=== PATIENT | female | born 1970 | race Caucasian/White ===

== ENCOUNTER 2016-10-02 19:26 | Emergency (ER) | payer BC ==
[2016-10-02 20:29] VITALS: RESP 18
--- NOTE | 2016-10-02 21:48 | ED ---
Extremity Problem HPI - General Chief complaint: Extremity Problem,Nontraumatic Stated complaint: lumps in neck and arm swelling Time Seen by Provider: 10/02/16 20:51 Source: patient, RN notes reviewed Mode of arrival: ambulatory Limitations: no limitations - History of Present Illness Initial comments: Patient is a 46-year-old female feeling generally ill for the past week. Patient reports that she recently returned from a vacation on Monday. She started to feel ill. She denies any specific symptoms other than noticing some swelling of the lymph node right neck as well as some right arm pain. Patient reports that this became more severe and the pain radiates from her neck down her arm. Patient states that she's noticed some swelling over the right arm for one day. She states that she did have a mild rash on her ankle and forearms a few days ago. She states that she's been taking Tylenol with some relief of the pain. She denies being sedentary or having immobilization of the arm. She denies having any tick bites or abnormal exposures on her vacation. She did travel to [place] and went to the beach as well as the [place]. - Related Data Home Medications Medication Instructions Recorded Confirmed Acetaminophen Tab [Tylenol Tab] 975 mg PO Q4H PRN 10/02/16 10/02/16 Beauty Sleep Vitamin 1 tab PO HS 10/02/16 10/02/16 Multivitamins, Thera [Multivitamin 1 tab PO DAILY 10/02/16 10/02/16 (formulary)] Thyroid,Pork [[place] Thyroid] 120 mg PO DAILY 10/02/16 10/02/16 Previous Rx's Medication Instructions Recorded Amoxic-Pot Clav 875-125Mg 1 tab PO Q12HR #20 tablet 10/02/16 [Augmentin 875-125] Allergies Allergy/AdvReac Type Severity Reaction Status Date / Time morphine Allergy BREATING Verified 10/02/16 21:07 PROBLEMS Review of Systems ROS Statement: Those systems with pertinent positive or pertinent negative responses have been documented in the HPI. ROS Other: All systems not noted in ROS Statement are negative. Past Medical History Past Medical History: No Reported History, Thyroid Disorder History of Any Multi-Drug Resistant Organisms: None Reported Past Surgical History: Appendectomy, Section, Tubal Ligation Past Psychological History: No Psychological Hx Reported Smoking Status: Never smoker Past Alcohol Use History: Rare Past Drug Use History: None Reported General Exam Limitations: no limitations General appearance: alert, in no apparent distress Head exam: Present: atraumatic, normocephalic, normal inspection Eye exam: Present: normal appearance, PERRL, EOMI. Absent: scleral icterus, conjunctival injection, periorbital swelling ENT exam: Present: normal exam, mucous membranes moist Neck exam: Present: normal inspection, lymphadenopathy (prominent right anterior cervical lymphnode. ). Absent: tenderness, meningismus Respiratory exam: Present: normal lung sounds bilaterally. Absent: respiratory distress, wheezes, rales, rhonchi, stridor Cardiovascular Exam: Present: regular rate, normal rhythm, normal heart sounds. Absent: systolic murmur, diastolic murmur, rubs, gallop, clicks GI/Abdominal exam: Present: soft, normal bowel sounds. Absent: distended, tenderness, guarding, rebound, rigid Extremities exam: Present: normal inspection, full ROM, normal capillary refill , other (mild swelling in rigth arm. ). Absent: tenderness, pedal edema, joint swelling, calf tenderness Back exam: Present: normal inspection Neurological exam: Present: alert, oriented X3, CN II-XII intact Psychiatric exam: Present: normal affect, normal mood Skin exam: Present: warm, dry, intact, normal color. Absent: rash Course Vital Signs 10/02/16 10/02/16 20:24 23:59 Temperature 99.2 F 98.5 F Pulse Rate 99 70 Respiratory 18 18 Rate Blood Pressure 171/92 137/63 O2 Sat by Pulse 96 97 Oximetry Medical Decision Making - Medical Decision Making Patient is a 46-year-old female feeling generally ill for the past week. Patient reports that she recently returned from a vacation on Monday. She started to feel ill. She denies any specific symptoms other than noticing some swelling of the lymph node right neck as well as some right arm pain. Patient reports that this became more severe and the pain radiates from her neck down her arm. Patient states that she's noticed some swelling over the right arm for one day. She states that she did have a mild rash on her ankle and forearms a few days ago. Patient lab work reviewed and was negative, patient given doppler US. No blood clots, there is evidence of diffuse axilla lymphadenopathy. Patient results were discussed with her. Discussed that we can place patient on antibioitic to see if swelling of lymph nodes disapates, but patient needs to follow up with PCP. Discussed importance of mammograms as this can be a sign of breast cancer. PAtient agrees with treatment plan and will comply. - Lab Data Result diagrams: 10/02/16 22:03 10/02/16 22:03 Lab Results 10/02/16 10/02/16 Range/Units 22:03 22:03 WBC 3.7 L (3.8-10.6) k/uL RBC 4.40 (3.80-5.40) m/uL Hgb 12.2 (11.4-16.0) gm/dL Hct 37.0 (34.0-46.0) % MCV 84.2 (80.0-100.0) fL MCH 27.8 (25.0-35.0) pg MCHC 33.0 (31.0-37.0) g/dL RDW 13.2 (11.5-15.5) % Plt Count 237 (150-450) k/uL Neutrophils % 45 % Neutrophils % (Manual) 37.0 % Lymphocytes % 38 % Lymphocytes % (Manual) 54.0 % Monocytes % 5 % Monocytes % (Manual) 1.0 % Eosinophils % 6 % Eosinophils % (Manual) 8.0 % Basophils % 1 % Neutrophils # 1.7 (1.3-7.7) k/uL Neutrophils # (Manual) 1.4 (1.3-7.7) k/uL Lymphocytes # 1.5 (1.0-4.8) k/uL Lymphocytes # (Manual) 2.0 (1.0-4.8) k/uL Monocytes # 0.2 (0-1.0) k/uL Monocytes # (Manual) 0.0 (0-1.0) k/uL Eosinophils # 0.2 (0-0.7) k/uL Eosinophils # (Manual) 0.3 (0-0.7) k/uL Basophils # 0.0 (0-0.2) k/uL Nucleated RBCs 0 (0-0) /100 WBC Manual Slide Review Performed Sodium 142 (137-145) mmol/L Potassium 3.8 (3.5-5.1) mmol/L Chloride 103 (98-107) mmol/L Carbon Dioxide 26 (22-30) mmol/L Anion Gap 13 mmol/L BUN 11 (7-17) mg/dL Creatinine 0.90 (0.52-1.04) mg/dL Est GFR (MDRD) Af Amer >60 (>60 ml/min/1.73 sqM) Est GFR (MDRD) Non-Af >60 (>60 ml/min/1.73 sqM) Glucose 123 H (74-99) mg/dL Calcium 9.0 (8.4-10.2) mg/dL Total Bilirubin 0.2 (0.2-1.3) mg/dL AST 42 H (14-36) U/L ALT 44 (9-52) U/L Alkaline Phosphatase 62 (38-126) U/L Total Protein 6.9 (6.3-8.2) g/dL Albumin 4.0 (3.5-5.0) g/dL - Radiology Data Radiology results: report reviewed Ultrasound of right upper x-ray shows no evidence of DVT. Small neck Her lymph nodes are noted as above. Remaining palpable lymph node measures 8 x 7 x 5 mm. Right axilla lymph nodes noted largest measures 2 x 1.3 x 2.87 m. Disposition Clinical Impression: Anterior cervical adenopathy Disposition: HOME SELF-CARE Condition: Stable Instructions: Lymphadenopathy (ED) Additional Instructions: Patient advised to follow-up with primary care provider in regards to lymphadenopathy. Return the emergency department if any alarming signs or symptoms occur. Prescriptions: Amoxic-Pot Clav 875-125Mg [Augmentin 875-125] 1 tab PO Q12HR #20 tablet Referrals: Bina Mancilla DO [Primary Care Provider] - 1-2 days Time of Disposition: 23:44
[2016-10-02 22:21] LABS: ALT 44 U/L (9-52); AST 42 U/L (14-36); Alkaline Phosphatase 62 U/L (38-126); Anion Gap 13 mmol/L; Blood Urea Nitrogen 11 mg/dL (7-17); Carbon Dioxide 26 mmol/L (22-30); Chloride 103 mmol/L (98-107); Glucose 123 mg/dL (74-99); Non-African American GFR(MDRD) >60 (>60 ml/min/1.73 sqM); Potassium 3.8 mmol/L (3.5-5.1); Sodium 142 mmol/L (137-145); Total Bilirubin 0.2 mg/dL (0.2-1.3); Total Protein 6.9 g/dL (6.3-8.2)
--- NOTE | 2016-10-02 22:26 | US ---
EXAM: US Duplex Right Upper Extremity Veins. CLINICAL HISTORY: Reason: Pain TECHNIQUE: Real-time ultrasound scan of the veins of the right upper extremity with color Doppler flow, spectral waveform analysis and compression. COMPARISON: No relevant prior studies available. FINDINGS: Deep veins: Unremarkable. No DVT in the internal jugular, subclavian, axillary, or brachial veins. Superficial veins: Unremarkable. No thrombus in the visualized superficial veins. Soft tissues: No acute findings. Lymph nodes: Right neck palpable lymph node measures 8 x 7 x 5 mm. Right axillary lymph nodes noted, largest measures 2.0 x 1.3 x 2.8 cm. IMPRESSION: 1. No evidence of deep venous thrombosis. 2. Small neck and axillary lymph nodes nodes, as above.
[2016-10-02 22:30] LABS: Add Differential Manual Differential
[2016-10-02 22:34] LABS: Manual Review Performed; Nucleated Red Blood Cells 0 /100 WBC (0-0); Total Cells Counted 100
[2016-10-02 23:14] LABS: Basophils % (A) 1 %; CH 27.8; CHCM 33.1; Eosinophils # (A) 0.2 k/uL (0-0.7); Eosinophils % (A) 6 %; HDW 2.65; HGB 12.2 gm/dL (11.4-16.0); Luc # (Auto) 0.22; Luc % (Auto) 6; Lymphocytes # (A) 1.5 k/uL (1.0-4.8); Lymphocytes % (A) 38 %; MCH 27.8 pg (25.0-35.0); MCV 84.2 fL (80.0-100.0); Mean Platelet Volume 7.4; Monocytes # (A) 0.2 k/uL (0-1.0); Monocytes % (A) 5 %; Neutrophils # (A) 1.7 k/uL (1.3-7.7); Neutrophils % (A) 45 %; RDW 13.2 % (11.5-15.5); WBC 3.7 k/uL (3.8-10.6); WBC (Perox) 4.16
[2016-10-02 23:59] VITALS: BP 137/63; PULSE 70; TEMP 98.5
== END 2016-10-03 | disposition home or self-care (01) ==
LOC: EC 19:26
DX: R59.0 Localized enlarged lymph nodes (principal); M79.601 Pain in right arm; E07.9 Disorder of thyroid, unspecified; Z88.5 Allergy status to narcotic agent; Z79.899 Other long term (current) drug therapy
CPT/HCPCS: 36415; 80053; 85025; 99284

== ENCOUNTER → 2016-10-11 | Outpatient (CLI) | payer BC ==
--- NOTE | 2016-10-13 08:20 | MM ---
Reason for exam: clinical finding. History: Family history of breast cancer in 2 maternal aunts and breast cancer in 2 paternal cousins. Indicated problem(s): lump or thickening and pain in the right breast. Physical Findings: Nurse did not find any significant physical abnormalities on exam. MG 3D Diag Mammo W/Cad MARQUISE Bilateral CC and MLO view(s) were taken. The breast tissue is heterogeneously dense. This may lower the sensitivity of mammography. No suspicious calcifications are seen. Mildly prominent axillary lymph nodes. These results were verbally communicated with the patient and result sheet given to the patient on 10/11/16. ASSESSMENT: Benign, BI-RAD 2 RECOMMENDATION: Routine screening mammogram of both breasts in 1 year. Manage patient on a clinical basis.
== END | disposition home or self-care (01) ==
LOC: RADMAMWWP 13:25
PROVIDERS: ATTEND Family Medicine
DX: N64.4 Mastodynia (principal); N60.09 Solitary cyst of unspecified breast; N64.89 Other specified disorders of breast
CPT/HCPCS: G0204; G0279

== ENCOUNTER 2017-02-08 22:21 | Emergency (ER) | payer BC ==
[2017-02-08 22:33] VITALS: BP 155/70; PULSE 88; RESP 18; TEMP 97.7
[2017-02-08] MEDS ORDERED: DIPH,PERTUS(ACELL)TETVAC-LF 0.5 ML VIAL IM ONE (22:36)
[2017-02-08] MEDS ORDERED: CEPHALEXIN 500 MG CAP PO STA (22:58)
--- NOTE | 2017-02-08 23:00 | ED ---
Wound/Laceration HPI - General Chief Complaint: Wound/Laceration Stated Complaint: laceration left foot (stepped on tea blender blade) Time Seen by Provider: 02/08/17 22:34 Source: patient, family, RN notes reviewed Mode of arrival: wheelchair Limitations: no limitations - History of Present Illness Initial Comments: 46-year-old female presents emergency Department chief complaint laceration to her left foot. Patient states she was outside and states that and also into the trash in which there was an old bleed from a tea blender in there. She states is on the ground she stepped on. Patient states that she is unsure last tetanus was. Patient states bleeding is controlled this time denies any paresthesias no weakness to her foot. - Related Data Home Medications Medication Instructions Recorded Confirmed Acetaminophen Tab [Tylenol Tab] 975 mg PO Q4H PRN 10/02/16 10/02/16 Beauty Sleep Vitamin 1 tab PO HS 10/02/16 10/02/16 Multivitamins, Thera [Multivitamin 1 tab PO DAILY 10/02/16 10/02/16 (formulary)] Thyroid,Pork [[place] Thyroid] 120 mg PO DAILY 10/02/16 10/02/16 Previous Rx's Medication Instructions Recorded Amoxic-Pot Clav 875-125Mg 1 tab PO Q12HR #20 tablet 10/02/16 [Augmentin 875-125] Cephalexin [Keflex] 500 mg PO Q6HR #28 cap 02/08/17 Allergies Allergy/AdvReac Type Severity Reaction Status Date / Time morphine Allergy BREATING Verified 10/02/16 21:07 PROBLEMS Review of Systems ROS Statement: Those systems with pertinent positive or pertinent negative responses have been documented in the HPI. ROS Other: All systems not noted in ROS Statement are negative. Past Medical History Past Medical History: No Reported History, Thyroid Disorder History of Any Multi-Drug Resistant Organisms: None Reported Past Surgical History: Appendectomy, Section, Tubal Ligation Past Psychological History: No Psychological Hx Reported Smoking Status: Never smoker Past Alcohol Use History: Rare Past Drug Use History: None Reported General Exam Limitations: no limitations General appearance: alert, in no apparent distress Respiratory exam: Present: normal lung sounds bilaterally. Absent: respiratory distress, wheezes, rales, rhonchi, stridor Cardiovascular Exam: Present: regular rate, normal rhythm, normal heart sounds. Absent: systolic murmur, diastolic murmur, rubs, gallop, clicks Extremities exam: Present: other (Left foot there is a 5 cm laceration on the plantar surface there is no tendon involvement patient has full range of motion) Neurological exam: Present: alert, reflexes normal. Absent: motor sensory deficit Course Vital Signs 02/08/17 22:29 Temperature 97.7 F Pulse Rate 88 Respiratory 18 Rate Blood Pressure 155/70 O2 Sat by Pulse 100 Oximetry Procedures - Laceration Laceration #1 Consent Obtained: verbal consent Indication: laceration Site: foot (Left) Size (cm): 5 Description: linear Depth: simple, single layer Anesthetic Used: lidocaine 1%, without epi Anesthesia Technique: local infiltration Amount (mls): 6 Pre-repair: wound explored, irrigated extensively, deep structures intact Type of Sutures: nylon Size of Sutures: 4-0 Number of Sutures: 7 Technique: simple, interrupted Patient Tolerated Procedure: well, no complications Medical Decision Making - Medical Decision Making 46-year-old female presented for for laceration. This was closed using sutures. It was thoroughly cleaned. Patient we certainly antibiotic as it was a dirty wound from the bleeding and it's on her foot. Patient tetanus is updated return parameters were discussed. Disposition Clinical Impression: Laceration of left foot Disposition: HOME SELF-CARE Condition: Stable Instructions: Care For Your Stitches (ED), Laceration (ED) Additional Instructions: Have sutures removed in 10 days.Please return to the Emergency Department if symptoms worsen or any other concerns. Prescriptions: Cephalexin [Keflex] 500 mg PO Q6HR #28 cap Referrals: Bina Mancilla DO [Primary Care Provider] - 1-2 days Time of Disposition: 22:59
== END 2017-02-08 23:10 | disposition home or self-care (01) ==
LOC: EC 22:21
DX: S91.312A Laceration without foreign body, left foot, initial encounter (principal); E07.9 Disorder of thyroid, unspecified; Z79.899 Other long term (current) drug therapy; Z88.5 Allergy status to narcotic agent; Z23 Encounter for immunization; W26.8XXA Contact with other sharp object(s), not elsewhere classified, initial encounter
CPT/HCPCS: 12002; 90471; 90715; 99282

== ENCOUNTER 2017-11-06 11:34 | Inpatient (IN) | payer BC ==
[2017-11-06] MEDS ORDERED: SODIUM CHLORIDE 0.9% 1,000 ML IV STA (11:58)
[2017-11-06 12:24] LABS: Basophils # (A) 0.1 k/uL (0-0.2); Basophils % (A) 1 %; Eosinophils # (A) 0.2 k/uL (0-0.7); Eosinophils % (A) 3 %; HCT 39.6 % (34.0-46.0); HGB 13.1 gm/dL (11.4-16.0); Lymphocytes # (A) 1.6 k/uL (1.0-4.8); Lymphocytes % (A) 25 %; MCH 27.5 pg (25.0-35.0); MCV 83.3 fL (80.0-100.0); Mean Platelet Volume 6.8; Monocytes # (A) 0.4 k/uL (0-1.0); Monocytes % (A) 6 %; Neutrophils # (A) 4.1 k/uL (1.3-7.7); Neutrophils % (A) 63 %; Platelet Count 349 k/uL (150-450); RBC 4.75 m/uL (3.80-5.40); RDW 13.3 % (11.5-15.5); WBC 6.5 k/uL (3.8-10.6)
--- NOTE | 2017-11-06 12:32 | CT ---
EXAMINATION TYPE: CT brain wo con DATE OF EXAM: 11/06/2017 COMPARISON: 06/29/2010 HISTORY: Possible seizure today, confusion. CT DLP: 776.[address] of the brain was performed. The ventricles, basal cisterns and sulci overlying the cerebral convexities demonstrate a normal appe arance. There is no evidence for intracranial hemorrhage or sulcal effacement. No mass effects are seen. Osseous calvarium is intact. If symptoms persist consider MRI as clinically warranted. IMPRESSION: 1. No acute intracranial process is seen at this time.
[2017-11-06 12:41] LABS: ALT 30 U/L (9-52); AST 41 U/L (14-36); Acetaminophen <10.0 ug/mL; Albumin 4.4 g/dL (3.5-5.0); Alcohol <10 mg/dL; Alkaline Phosphatase 75 U/L (38-126); Anion Gap 14 mmol/L; Blood Urea Nitrogen 9 mg/dL (7-17); Calcium 9.6 mg/dL (8.4-10.2); Carbon Dioxide 24 mmol/L (22-30); Chloride 104 mmol/L (98-107); Glucose 119 mg/dL (74-99); Potassium 4.6 mmol/L (3.5-5.1); Salicylate <1.0 mg/dL; Sodium 142 mmol/L (137-145); Total Bilirubin 0.5 mg/dL (0.2-1.3); Total Protein 7.3 g/dL (6.3-8.2)
--- NOTE | 2017-11-06 12:44 | ED ---
General Adult HPI - General Chief complaint: Seizure Stated complaint: poss seizure, confusion Time Seen by Provider: 11/06/17 11:41 Source: family, RN notes reviewed, old records reviewed Mode of arrival: wheelchair Limitations: no limitations - History of Present Illness Initial comments: 47-year-old female presents with suspected seizure. Patient is accompanied by family member who was not able to witnesses activity. According to patient's daughter who is not available at the time my evaluation, the patient had 2 generalized tonic-clonic seizures this morning while the patient was in bed. There is no injury. Patient is alert and oriented at the time my evaluation. She has a remote history of seizures as a teenager. She is not currently on any prophylactic medication. She is able to answer questions but slow to respond. She complains of a mild right-sided headache. Denies any drug ingestion. Denies any alcohol abuse. She has no additional pain complaints aside her headache. No weakness or numbness. No vision changes. - Related Data Home Medications Medication Instructions Recorded Confirmed Ergocalciferol (Vitamin D2) 50,000 unit PO DIRECTED 11/06/17 11/06/17 [Vitamin D2] Multivitamins, Thera [Multivitamin 1 tab PO DAILY 11/06/17 11/06/17 (formulary)] PARoxetine [Paxil] 20 mg PO DAILY 11/06/17 11/06/17 Thyroid,Pork [[place] Thyroid] 120 mg PO DAILY 11/06/17 11/06/17 Allergies Allergy/AdvReac Type Severity Reaction Status Date / Time morphine Allergy Dyspnea Verified 11/06/17 12:03 Review of Systems ROS Statement: Those systems with pertinent positive or pertinent negative responses have been documented in the HPI. ROS Other: All systems not noted in ROS Statement are negative. Past Medical History Past Medical History: Seizure Disorder, Thyroid Disorder History of Any Multi-Drug Resistant Organisms: None Reported Past Surgical History: Appendectomy, Section, Tubal Ligation Past Psychological History: No Psychological Hx Reported Smoking Status: Never smoker Past Alcohol Use History: Rare Past Drug Use History: None Reported General Exam Limitations: no limitations General appearance: alert, in no apparent distress Head exam: Present: atraumatic, normocephalic Eye exam: Present: normal appearance, PERRL, EOMI Neck exam: Present: normal inspection. Absent: tenderness, meningismus Respiratory exam: Present: normal lung sounds bilaterally, respiratory distress Cardiovascular Exam: Present: regular rate, normal rhythm GI/Abdominal exam: Present: soft. Absent: distended, tenderness Extremities exam: Present: normal inspection, normal capillary refill. Absent: pedal edema Neurological exam: Present: alert, oriented X3, CN II-XII intact. Absent: motor sensory deficit Psychiatric exam: Present: flat affect Skin exam: Present: warm, dry, intact. Absent: cyanosis, diaphoretic Course Vital Signs 11/06/17 11/06/17 11/06/17 11:36 12:35 12:54 Temperature 98.6 F Pulse Rate 92 85 84 Respiratory 18 16 16 Rate Blood Pressure 185/82 155/82 158/67 O2 Sat by Pulse 97 95 97 Oximetry 11/06/17 13:31 Temperature Pulse Rate 86 Respiratory 16 Rate Blood Pressure 134/59 O2 Sat by Pulse 98 Oximetry EKG Findings - EKG Comments: EKG Findings:: EKG: Normal sinus rhythm, ventricular rate 84, MT interval 154, QRS duration 86, QTC 467 Medical Decision Making - Medical Decision Making 47-year-old female presenting with concern for seizure activity. Patient is initially postictal she is able to respond blood very slow. Neurologic examination is nonfocal. Head CT is obtained is negative for intracranial hemorrhage or mass effect. CBC CMP are unremarkable. Patient's mental status does improve wall she is an emergency prompt. She is alert and oriented with a nonfocal exam on reevaluation. Although she has a remote history of seizures, she is not on any medication and has not had a seizure in greater than 30 years. She will be admitted for further evaluation of possible seizure activity. Neurology placed on consult. Case discussed with Dr. Peralta who will accept admission - Lab Data Result diagrams: 11/06/17 11:56 11/06/17 11:56 Lab Results 11/06/17 11/06/17 11/06/17 Range/Units 11:56 11:56 12:58 WBC 6.5 (3.8-10.6) k/uL RBC 4.75 (3.80-5.40) m/uL Hgb 13.1 (11.4-16.0) gm/dL Hct 39.6 (34.0-46.0) % MCV 83.3 (80.0-100.0) fL MCH 27.5 (25.0-35.0) pg MCHC 33.0 (31.0-37.0) g/dL RDW 13.3 (11.5-15.5) % Plt Count 349 (150-450) k/uL Neutrophils % 63 % Lymphocytes % 25 % Monocytes % 6 % Eosinophils % 3 % Basophils % 1 % Neutrophils # 4.1 (1.3-7.7) k/uL Lymphocytes # 1.6 (1.0-4.8) k/uL Monocytes # 0.4 (0-1.0) k/uL Eosinophils # 0.2 (0-0.7) k/uL Basophils # 0.1 (0-0.2) k/uL Sodium 142 (137-145) mmol/L Potassium 4.6 (3.5-5.1) mmol/L Chloride 104 (98-107) mmol/L Carbon Dioxide 24 (22-30) mmol/L Anion Gap 14 mmol/L BUN 9 (7-17) mg/dL Creatinine 0.60 (0.52-1.04) mg/dL Est GFR (CKD-EPI)AfAm >90 (>60 ml/min/1.73 sqM) Est GFR (CKD-EPI)NonAf >90 (>60 ml/min/1.73 sqM) Glucose 119 H (74-99) mg/dL Calcium 9.6 (8.4-10.2) mg/dL Total Bilirubin 0.5 (0.2-1.3) mg/dL AST 41 H (14-36) U/L ALT 30 (9-52) U/L Alkaline Phosphatase 75 (38-126) U/L Total Protein 7.3 (6.3-8.2) g/dL Albumin 4.4 (3.5-5.0) g/dL Urine Color Yellow Urine Appearance Turbid H (Clear) Urine pH 8.0 (5.0-8.0) Ur Specific [place] 1.013 (1.001-1.035) Urine Protein 1+ H (Negative) Urine Glucose (UA) Negative (Negative) Urine Ketones Negative (Negative) Urine Blood Small H (Negative) Urine Nitrite Negative (Negative) Urine Bilirubin Negative (Negative) Urine Urobilinogen <2.0 (<2.0) mg/dL Ur Leukocyte Esterase Small H (Negative) Urine RBC 3 (0-5) /hpf Urine WBC 10 H (0-5) /hpf Ur Squamous Epith Cells 122 H (0-4) /hpf Urine Bacteria Moderate H (None) /hpf Urine Mucus Few H (None) /hpf Salicylates <1.0 mg/dL Urine Opiates Screen Not Detected (NotDetected) Ur Oxycodone Screen Not Detected (NotDetected) Urine Methadone Screen Not Detected (NotDetected) Ur Propoxyphene Screen Not Detected (NotDetected) Acetaminophen <10.0 ug/mL Ur Barbiturates Screen Not Detected (NotDetected) U Tricyclic Antidepress Not Detected (NotDetected) Ur Phencyclidine Scrn Not Detected (NotDetected) Ur Amphetamines Screen Not Detected (NotDetected) U Methamphetamines Scrn Not Detected (NotDetected) U Benzodiazepines Scrn Not Detected (NotDetected) Urine Cocaine Screen Not Detected (NotDetected) U Marijuana (THC) Screen Not Detected (NotDetected) Serum Alcohol <10 mg/dL Disposition Clinical Impression: New onset seizure Disposition: ADMITTED IP TO THIS [facility] Condition: Stable Is patient prescribed a controlled substance at d/c from ED?: No Referrals: Bina Mancilla DO [Primary Care Provider] - 1-2 days Decision to Admit Reason: Admit from EC Decision Date: 11/06/17 Decision Time: 14:06
[2017-11-06 13:06] LABS: Appearance,Urine Turbid (Clear); Bacteria,Urine Moderate /hpf; Bilirubin,Urine Negative (Negative); Blood,Urine Small (Negative); Color,Urine Yellow; Glucose,Urine (UA) Negative (Negative); Ketones,Urine Negative (Negative); Leukocyte Esterase,Urine Small (Negative); Mucus,Urine Few /hpf; Nitrite,Urine Negative (Negative); Protein,Urine 1+ (Negative); RBC,Urine 3 /hpf (0-5); Specific Gravity,Urine 1.013 (1.001-1.035); Squamous Epithelial Cell,Urine 122 /hpf (0-4); Urobilinogen,Urine <2.0 mg/dL (<2.0); WBC,Urine 10 /hpf (0-5)
[2017-11-06] MEDS ORDERED: levETIRAcetam IV 1,000 MG in SALINE 1 100ML.BAG IVPB STA (13:06)
[2017-11-06 13:10] LABS: Amphetamine Screen,Urine Not Detected (NotDetected); Barbiturate Screen,Urine Not Detected (NotDetected); Benzodiazepines Screen,Urine Not Detected (NotDetected); Cocaine Screen,Urine Not Detected (NotDetected); Methadone Screen, Urine Not Detected (NotDetected); Opiate Screen,Urine Not Detected (NotDetected); Oxycodone Screen, Urine Not Detected (NotDetected); Phencyclidine Screen,Urine Not Detected (NotDetected); Tricyclic Antidepressant,Urine Not Detected (NotDetected); Urn Cannabinoid Scrn Not Detected (NotDetected)
[2017-11-06] MEDS ORDERED: NALOXONE 0.4 MG/ML 1 ML VIAL IV PRN (14:01)
[2017-11-06] MEDS ORDERED: LORazepam 2 MG/ML INJ IV PRN (15:14)
--- NOTE | 2017-11-06 15:26 | P.HPIM ---
History of Present Illness H&P Date: 11/06/17 Chief Complaint: Possible seizure This is a 47-year-old female, patient of [facility]. She has a known past medical history of a seizure disorder as a teenager which was about 30 years ago. Patient reports she had been on seizure medications for a little while but has been now off them for many years. Also, history of depression and hypothyroidism. Patient reports that she may have had 2 seizure-like episodes. She was sleeping and woke up to her hands shaking and her head shaking. She was able to go back asleep and then woke up again with similar symptoms. She was able to contact family members and they came to get her and brought her into the emergency room. Per ER report patient was responding slowly to questions and was in what appeared to be a postictal state. Patient even reports that she was having difficulty finding her words to answer questions. She also had some tingling-like sensation on the right side of her face and a headache on the right side of her head. She reports having loss of bladder control and biting her tongue. Patient was given IV Keppra in the emergency room. Neurology has been consulted. Computed tomography scan of the brain shows no acute changes. Drug screen was negative. Patient denies any new medications new antibiotics. She has been having some urinary frequency initial urinalysis is likely contaminated. We'll repeat urinalysis with culture. Patient denies any numbness or weakness on one side of the body. She denies any chest pain or shortness of breath. Denies any nausea or vomiting. Denies any burning with urination. Denies any bowel movement changes. Patient' s brother has a history of epilepsy. Review of Systems Head normocephalic Neck supple Lungs clear to auscultation bilaterally no wheezing or crackles Heart regular rate and rhythm S1-S2, no rub or gallop Abdomen is soft nontender nondistended positive bowel sounds no hepatosplenomegaly Extremities no edema Neuro alert and orientated to 3 Past Medical History Past Medical History: Seizure Disorder, Thyroid Disorder History of Any Multi-Drug Resistant Organisms: None Reported Past Surgical History: Appendectomy, Section, Tubal Ligation Past Psychological History: No Psychological Hx Reported Smoking Status: Never smoker Past Alcohol Use History: Rare Past Drug Use History: None Reported Medications and Allergies Home Medications Medication Instructions Recorded Confirmed Type Ergocalciferol (Vitamin D2) 50,000 unit PO DIRECTED 11/06/17 11/06/17 History [Vitamin D2] Multivitamins, Thera [Multivitamin 1 tab PO DAILY 11/06/17 11/06/17 History (formulary)] PARoxetine [Paxil] 20 mg PO DAILY 11/06/17 11/06/17 History Thyroid,Pork [[place] Thyroid] 120 mg PO DAILY 11/06/17 11/06/17 History Allergies Allergy/AdvReac Type Severity Reaction Status Date / Time morphine Allergy Dyspnea Verified 11/06/17 12:03 Physical Exam Vitals: Vital Signs Temp Pulse Resp BP Pulse Ox 11/06/17 13:31 86 16 134/59 98 11/06/17 12:54 84 16 158/67 97 11/06/17 12:35 85 16 155/82 95 11/06/17 11:36 98.6 F 92 18 185/82 97 Intake and Output 11/06/17 11/06/17 11/06/17 06:59 14:59 22:59 Other: Weight 90.718 kg Results CBC & Chem 7: 11/06/17 11:56 11/06/17 11:56 Labs: Abnormal Lab Results - Last 24 Hours (Table) 11/06/17 11/06/17 Range/Units 11:56 12:58 Glucose 119 H (74-99) mg/dL AST 41 H (14-36) U/L Urine Appearance Turbid H (Clear) Urine Protein 1+ H (Negative) Urine Blood Small H (Negative) Ur Leukocyte Esterase Small H (Negative) Urine WBC 10 H (0-5) /hpf Ur Squamous Epith Cells 122 H (0-4) /hpf Urine Bacteria Moderate H (None) /hpf Urine Mucus Few H (None) /hpf Assessment and Plan Assessment: 1. Possible seizure disorder: Patient does have a remote history of seizure when she was a teenager. She's been off of medications for several years. Patient was given IV Keppra in the emergency room. Neurology consulted. Also will add IV Ativan for any breakthrough seizures. Computed tomography scan the brain negative. Check EEG 2. Hypothyroidism resume thyroid medication 3. Vitamin D deficiency: Resume vitamin D 4. Depression continue Paxil 5. Urinary frequency: Repeat urinalysis with culture and sensitivity. Initial urinalysis likely contaminant. 122 squamous epithelial cells present on urinalysis 6. Mildly elevated AST no abdominal pain. Will repeat AST level in a.m. GI and DVT prophylaxis Pepcid and Lovenox Time with Patient: Greater than 30 (Greater than 60% of the total time spent in counseling and coordination of care.I performed an examination of the patient and discussed their management with the physician Heel Gummer. I have reviewed the Physician Heel Gummer's notes and agree with the documented findings and plan of care)
[2017-11-06] MEDS ORDERED: ONDANSETRON 4 MG/2 ML VIAL IVP PRN (16:46)
[2017-11-06] MEDS ORDERED: HYDROcodone/APAP 5-325MG 1 EACH TAB PO PRN (16:46)
[2017-11-06] MEDS: ACETAMINOPHEN TAB 325 MG TAB PO PRN (18:38)
[2017-11-06 19:15] LABS: Appearance,Urine Cloudy (Clear); Bacteria,Urine Many /hpf; Bilirubin,Urine Negative (Negative); Blood,Urine Negative (Negative); Color,Urine Yellow; Glucose,Urine (UA) Negative (Negative); Ketones,Urine 2+ (Negative); Leukocyte Esterase,Urine Negative (Negative); Mucus,Urine Rare /hpf; Nitrite,Urine Negative (Negative); PH, Urine 7.5 (5.0-8.0); Protein,Urine Negative (Negative); Specific Gravity,Urine 1.013 (1.001-1.035); Squamous Epithelial Cell,Urine 1 /hpf (0-4); Urobilinogen,Urine <2.0 mg/dL (<2.0); WBC,Urine 2 /hpf (0-5)
[2017-11-07] MEDS: THYROID, PORK 30 MG TAB PO SCH (05:45)
[2017-11-07 08:04] LABS: Basophils % (A) 0 %; Eosinophils # (A) 0.2 k/uL (0-0.7); Eosinophils % (A) 3 %; HCT 36.2 % (34.0-46.0); Lymphocytes % (A) 34 %; MCH 27.7 pg (25.0-35.0); MCV 83.8 fL (80.0-100.0); Mean Platelet Volume 6.6; Monocytes # (A) 0.4 k/uL (0-1.0); Monocytes % (A) 7 %; Neutrophils # (A) 3.2 k/uL (1.3-7.7); Neutrophils % (A) 54 %; Platelet Count 312 k/uL (150-450); RBC 4.33 m/uL (3.80-5.40); RDW 13.4 % (11.5-15.5)
[2017-11-07] MEDS: FAMOTIDINE 20 MG TAB PO SCH (08:07)
[2017-11-07] MEDS: ENOXAPARIN 40 MG/0.4 ML SYRINGE SQ SCH (08:07)
[2017-11-07] MEDS: PARoxetine 20 MG TAB PO SCH (08:07)
[2017-11-07 08:23] LABS: ALT 30 U/L (9-52); AST 32 U/L (14-36); Albumin 3.9 g/dL (3.5-5.0); Alkaline Phosphatase 62 U/L (38-126); Anion Gap 11 mmol/L; Blood Urea Nitrogen 7 mg/dL (7-17); Calcium 9.3 mg/dL (8.4-10.2); Carbon Dioxide 28 mmol/L (22-30); Chloride 104 mmol/L (98-107); Glucose 107 mg/dL (74-99); Potassium 4.2 mmol/L (3.5-5.1); Sodium 143 mmol/L (137-145); Total Bilirubin 0.3 mg/dL (0.2-1.3); Total Protein 6.4 g/dL (6.3-8.2)
[2017-11-07] MEDS ORDERED: levETIRAcetam 500 MG TAB PO SCH (09:00)
--- NOTE | 2017-11-07 09:13 | P.CNNES ---
History of Present Illness Consult date: 11/07/17 Reason for Consult: [place] with new onset sezire disorder. History of Present Illness: This patient is a 47-year-old right-handed white female who was admitted to the hospital yesterday after having new onset of seizure activity. Patient has a history of having had seizures as a teenager about 30 years ago. She was able to wean off of medications over the years. Apparently on the day of admission she had 2 seizure-like events at home. Apparently she was sleeping and had awakened and was noticing shaking of her hands and her head. She was unable to go back to sleep and woke up again with a similar episode. The patient states that she did have urinary incontinence and had bitten the side of her mouth and cheek area. Family noticed the change and she was just not acting properly and she was brought into the emergency room for further evaluation. In the ER she was seen by Dr. Heart. She appeared to be postictal. She was very confused and had difficulty getting her words properly. She was sent for a computed tomography scan of the brain which came back negative for any acute changes. She was given a dose of IV Keppra in the emergency room of 1 g. She was subsequent admitted to Hospital. She underwent a drug screen in the ER which came back negative. She is scheduled to undergo EEG testing later today and has been admitted for further evaluation of new onset seizure activity. We have started the patient on Keppra 500 mg by mouth twice a day. She states she is feeling better today and does have slight right-sided headache. We have recommended the patient undergo MRI of the brain with and without gadolinium for further evaluation. She was explained [place] driving law which states she cannot drive for appeared of 6 months following any seizure. We have recommended the patient to be maintained on Keppra for at least 6 months and we' ll await further evaluation of her EEG and MRI results. Patient states she has remained seizure-free for the past 30 years. She was on treatment 30 years ago for about a year and was able to wean off medications even at that time. Patient denies any recent head trauma or head injury. She is now been admitted and neurology has been consulted for further evaluation and recommendations. Review of Systems Constitutional: Denies chills, Denies fever Eyes: denies blurred vision, denies pain Ears, nose, mouth and throat: Denies headache, Denies sore throat Cardiovascular: Denies chest pain, Denies shortness of breath Respiratory: Denies cough Gastrointestinal: Denies abdominal pain, Denies diarrhea, Denies nausea, Denies vomiting Genitourinary: Denies dysuria, Denies hematuria Musculoskeletal: Denies myalgias Integumentary: Denies pruritus, Denies rash Neurological: Reports change in mentation, Reports confusion, Reports headaches , Reports seizures, Denies numbness, Denies weakness Psychiatric: Denies anxiety, Denies depression Endocrine: Denies fatigue, Denies weight change Past Medical History Past Medical History: Seizure Disorder, Thyroid Disorder History of Any Multi-Drug Resistant Organisms: None Reported Past Surgical History: Appendectomy, Section, Tubal Ligation Past Anesthesia/Blood Transfusion Reactions: No Reported Reaction Smoking Status: Former smoker - Past Family History Mother Family Medical History: Diabetes Mellitus Father Family Medical History: CVA/TIA, Myocardial Infarction ([place]) Medications and Allergies Home Medications Medication Instructions Recorded Confirmed Type Ergocalciferol (Vitamin D2) 50,000 unit PO DIRECTED 11/06/17 11/06/17 History [Vitamin D2] Multivitamins, Thera [Multivitamin 1 tab PO DAILY 11/06/17 11/06/17 History (formulary)] PARoxetine [Paxil] 20 mg PO DAILY 11/06/17 11/06/17 History Thyroid,Pork [[place] Thyroid] 120 mg PO DAILY 11/06/17 11/06/17 History Allergies Allergy/AdvReac Type Severity Reaction Status Date / Time morphine Allergy Dyspnea Verified 11/06/17 12:03 Physical Examination - Vital Signs Vital Signs: Vital Signs Temp Pulse Pulse Pulse Resp BP BP 11/07/17 08:05 97.6 F 82 16 138/86 11/07/17 00:12 98.6 F 87 16 137/79 11/06/17 21:19 97.2 F L 92 14 135/82 11/06/17 21:17 18 11/06/17 16:55 98.1 F 77 18 159/86 11/06/17 15:21 78 18 135/64 11/06/17 13:31 86 16 134/59 11/06/17 12:54 84 16 158/67 11/06/17 12:35 85 16 155/82 11/06/17 11:36 98.6 F 92 18 185/82 Pulse Ox 11/07/17 08:05 96 11/07/17 00:12 98 11/06/17 21:19 94 L 11/06/17 21:17 11/06/17 16:55 97 11/06/17 15:21 96 11/06/17 13:31 98 11/06/17 12:54 97 11/06/17 12:35 95 11/06/17 11:36 97 Intake and Output 11/06/17 11/07/17 11/07/17 22:59 06:59 14:59 Intake Total 400 Balance 400 Intake: Intake, IV Titration 400 Amount levETIRAcetam IV 1,000 mg 400 In Saline 1 100ml.bag @ 400 mls/hr IVPB ONCE STA Rx#:[id number] Other: # Voids 1 - Constitutional General appearance: average body habitus, cooperative - EENT EENT: PERRL, mucous membranes moist - Respiratory Respiratory: lungs clear, normal breath sounds - Cardiovascular Cardiovascular: regular rate, normal S1, normal S2 Extremities: no peripheral edema bilaterally - Gastrointestinal Gastrointestinal: normoactive bowel sounds - Integumentary Integumentary: normal - Neurologic Cranial nerve examination: PERRL, EOMI, VFF, V1/V2/V3 grossly intact, face symmetric, intact gag reflex, intact corneal reflex, normal palatal elevation Speech examination: intact Sensorimotor examination: intact Motor examination - right side: 4/5: biceps, triceps, wrist flexion, wrist extension, escalation engineer, hip flexors, knee extensors, dorsiflexion, toe extension (EHL) , plantarflexion Motor examination - left side: 4/5: biceps, triceps, wrist flexion, wrist extension, escalation engineer, hip flexors, knee extensors, dorsiflexion, toe extension (EHL) , plantarflexion Detailed sensory examination: intact Reflex and gait examination: intact Reflexes: 1+: ankle, bicep, knee, tricep - Musculoskeletal Musculoskeletal: no pain - Psychiatric Psychiatric: mood/affect appropriate, cooperative Results - Laboratory Findings CBC and BMP: 11/07/17 07:23 11/07/17 07:27 Abnormal Lab Findings: Abnormal Labs 11/06/17 11/06/17 11/06/17 11:56 12:58 18:34 Glucose 119 H AST 41 H Urine Appearance Turbid H Cloudy H Urine Protein 1+ H Urine Ketones 2+ H Urine Blood Small H Ur Leukocyte Esterase Small H Urine WBC 10 H Ur Squamous Epith Cells 122 H Urine Bacteria Moderate H Many H Urine Mucus Few H Rare H Assessment and Plan (1) New onset seizure Current Visit: Yes Status: Acute Code(s): R56.9 - UNSPECIFIED CONVULSIONS SNOMED Code(s): 02459659 Plan: This patient is a 47-year-old right-handed white female who was admitted to hospital for new onset seizure activity. Patient had 2 events at home yesterday during her sleep. She woke up and was shaking and was unable to communicate with family. She had lost control of her bladder and had bitten her cheek. She appeared to be very confused following 2 events at home. She was brought into the emergency room where she underwent a computed tomography scan of the brain which was reported negative for any acute changes. She was subsequently admitted to the hospital for further evaluation. Patient has a history of having seizures 30 years ago. She was treated for one year and was able to wean off of all anticonvulsant medications. In the emergency room she was started on IV bolus of Keppra and is now being maintained on Keppra 500 mg by mouth twice a day. This patient has evidence of new onset seizures etiology undetermined. We recommend patient undergo a routine EEG as well as MRI of the brain with and without gadolinium for further evaluation. She is been explained [place] driving law which states that she cannot drive for her. To 6 months following her last seizure. She is aware of this restriction. The patient otherwise seems to be making good progress today. We will give further recommendations pending her test results. Would continue with seizure precautions for the patient. Her overall prognosis at this time remains guarded. Time with Patient: Greater than 30
--- NOTE | 2017-11-07 11:15 | P.PN ---
Subjective Progress Note Date: 11/07/17 This is a 47-year-old female, patient of [facility]. She has a known past medical history of a seizure disorder as a teenager which was about 30 years ago. Patient reports she had been on seizure medications for a little while but has been now off them for many years. Also, history of depression and hypothyroidism. Patient reports that she may have had 2 seizure-like episodes. She was sleeping and woke up to her hands shaking and her head shaking. She was able to go back asleep and then woke up again with similar symptoms. She was able to contact family members and they came to get her and brought her into the emergency room. Per ER report patient was responding slowly to questions and was in what appeared to be a postictal state. Patient even reports that she was having difficulty finding her words to answer questions. She also had some tingling-like sensation on the right side of her face and a headache on the right side of her head. She reports having loss of bladder control and biting her tongue. Patient was given IV Keppra in the emergency room. Neurology has been consulted. Computed tomography scan of the brain shows no acute changes. Drug screen was negative. Patient denies any new medications new antibiotics. She has been having some urinary frequency initial urinalysis is likely contaminated. We'll repeat urinalysis with culture. Patient denies any numbness or weakness on one side of the body. She denies any chest pain or shortness of breath. Denies any nausea or vomiting. Denies any burning with urination. Denies any bowel movement changes. Patient' s brother has a history of epilepsy. 11/07/2017 patient has had no reported seizures to the night. She was seen evaluated by neurology and fatty Keppra 500 mg by mouth twice a day. Patient is scheduled for an MRI of the brain and had the EEG this morning. Patient has no new complaints Objective - Vital Signs Vital signs: Vital Signs Temp 97.6 F 11/07/17 08:05 Pulse 82 11/07/17 08:05 Resp 16 11/07/17 08:05 BP 138/86 11/07/17 08:05 Pulse Ox 96 11/07/17 08:05 Intake & Output 11/06/17 11/07/17 11/07/17 18:59 06:59 18:59 Intake Total 400 50 Balance 400 50 Weight 90.718 kg Intake: Intake, IV Titration 400 Amount levETIRAcetam IV 1,000 mg 400 In Saline 1 100ml.bag @ 400 mls/hr IVPB ONCE STA Rx#:[id number] Oral 50 Other: # Voids 1 - Exam Head normocephalic Neck supple Lungs clear to auscultation bilaterally no wheezing or crackles Heart regular rate and rhythm S1-S2, no rub or gallop Abdomen is soft nontender nondistended positive bowel sounds no hepatosplenomegaly Extremities no edema Neuro alert and orientated to 3 - Labs CBC & Chem 7: 11/07/17 07:23 11/07/17 07:27 Labs: Abnormal Lab Results - Last 24 Hours (Table) 11/06/17 11/06/17 11/06/17 Range/Units 11:56 12:58 18:34 Glucose 119 H (74-99) mg/dL AST 41 H (14-36) U/L Urine Appearance Turbid H Cloudy H (Clear) Urine Protein 1+ H (Negative) Urine Ketones 2+ H (Negative) Urine Blood Small H (Negative) Ur Leukocyte Esterase Small H (Negative) Urine WBC 10 H (0-5) /hpf Ur Squamous Epith Cells 122 H (0-4) /hpf Urine Bacteria Moderate H Many H (None) /hpf Urine Mucus Few H Rare H (None) /hpf 11/07/17 Range/Units 07:27 Glucose 107 H (74-99) mg/dL AST (14-36) U/L Urine Appearance (Clear) Urine Protein (Negative) Urine Ketones (Negative) Urine Blood (Negative) Ur Leukocyte Esterase (Negative) Urine WBC (0-5) /hpf Ur Squamous Epith Cells (0-4) /hpf Urine Bacteria (None) /hpf Urine Mucus (None) /hpf Microbiology - Last 24 Hours (Table) 11/07/17 04:20 Urine Culture - Preliminary Urine,Voided Assessment and Plan Assessment: 1. New-onset seizure: Patient does have a remote history of seizure when she was a teenager. She's been off of medications for several years. Neurology is placed patient on Keppra 500 mg every 12 hours by mouth. Computed tomography scan of the brain was negative. Patient has MRI of the brain and EEG ordered awaiting results 2. Hypothyroidism resume thyroid medication 3. Vitamin D deficiency: Resume vitamin D 4. Depression continue Paxil 5. Urinary frequency: Improved. Awaiting urine culture. Likely initial urinalysis was a contaminant. Repeat urinalysis showed improvement GI and DVT prophylaxis Pepcid and Lovenox I performed an examination of the patient and discussed their management with the physician Treating And Pumping Supervisor. I have reviewed the Physician Treating And Pumping Supervisor's notes and agree with the documented findings and plan of care
[2017-11-07] MEDS: ACETAMINOPHEN TAB 325 MG TAB PO PRN (16:42)
[2017-11-07] MEDS: MULTIVITAMINS, THERA 1 EACH TAB PO SCH (16:44)
[2017-11-07] MEDS ORDERED: levETIRAcetam IV 1,000 MG in SALINE 1 100ML.BAG IVPB STA (19:21)
--- NOTE | 2017-11-07 19:38 | EEG ---
ELECTROENCEPHALOGRAM REPORT DATE OF EE11/07/2017. ELECTROENCEPHALOGRAPHIC EXAMINATION REPORT: INDICATION FOR EXAMINATION: This patient is a 47-year-old female being evaluated for new-onset seizures. AGE: [age]. EEG FINDINGS: A routine 21-channel awake digital EEG recording was accomplished utilizing the 10-20 international system with bipolar and referential montages. The background activity in the most alert resting state consists of a low to medium amplitude, fairly well developed and well sustained 7-8 Hz activity over the posterior head regions. This posterior rhythm attenuates to eye opening. There is a small amount of low amplitude 18-20 Hz beta activity seen maximally over the anterior head regions. Hyperventilation failed to add any additional information to the tracing. No further activation was noted. Photic stimulation at flash frequencies of 2-30 Hz produced a good symmetrical occipital driving response. The main feature of this tracing is the occurrence of small spike and wave discharges emanating from the right temporal lobe at the T4 electrode. This is seen intermittently throughout the tracing. No clinical correlations were seen. IMPRESSION: This EEG is abnormal due to the focal epileptiform discharges noted at the T4 electrode. If clinically indicated, a follow-up EEG is recommended. Clinical correlation is recommended. MMODL / IJN: [id number] /
--- NOTE | 2017-11-07 20:27 | MR ---
EXAMINATION TYPE: MR brain w con DATE OF EXAM: 11/07/2017 COMPARISON: NONE HISTORY: Pt had prior MRI Brain today, Returned for Contrast Only, Gadavist 10ml TECHNIQUE: Multiplanar, multisequence images of the brain and brainstem is performed with IV contrast, utilizing 10 mL intravenous Gadavist . FINDINGS: Contrast images show no pathologic enhancement. Ventricles and sulci are within normal limi ts. There is no mass effect nor midline shift. Optic chiasm appears normal. Pituitary stalk appears n ormal. Sella turcica is normal. Brainstem appears normal. IMPRESSION: Negative MR scan of the brain. I do not see a cause for seizure.
--- NOTE | 2017-11-07 20:34 | MR ---
EXAMINATION TYPE: MR brain wo con DATE OF EXAM: 11/07/2017 COMPARISON: NONE HISTORY: Patient with new onset seizures Standard multiplanar, multisequence MRI departmental protocol Multiplanar, multisequence images of the brain were acquired. Diffusion weighted imaging was performe d. FINDINGS: The ventricles of normal size. There is no mass effect nor midline shift. There is no sign of intracranial hemorrhage. There is no evidence of cerebral edema. Brainstem appears normal. Sella t urcica is normal. The morin-white matter structures have fairly normal signal pattern. There is no simon dence of cerebral edema. Corpus callosum appears normal. IMPRESSION: Negative exam. I do not see a cause for seizure disorder. Minimal maxillary sinusitis is noted.
[2017-11-07 21:59] VITALS: RESP 16
[2017-11-08] MEDS: THYROID, PORK 30 MG TAB PO SCH (05:14)
[2017-11-08 07:05] LABS: Basophils # (A) 0.1 k/uL (0-0.2); Basophils % (A) 1 %; Eosinophils # (A) 0.2 k/uL (0-0.7); Eosinophils % (A) 4 %; HCT 36.4 % (34.0-46.0); Lymphocytes # (A) 1.9 k/uL (1.0-4.8); Lymphocytes % (A) 34 %; MCH 27.5 pg (25.0-35.0); MCHC 33.1 g/dL (31.0-37.0); MCV 83.1 fL (80.0-100.0); Mean Platelet Volume 6.3; Monocytes # (A) 0.4 k/uL (0-1.0); Monocytes % (A) 7 %; Neutrophils % (A) 53 %; Platelet Count 342 k/uL (150-450); RBC 4.38 m/uL (3.80-5.40); WBC 5.7 k/uL (3.8-10.6)
[2017-11-08 07:16] LABS: ALT 29 U/L (9-52); AST 35 U/L (14-36); Albumin 3.9 g/dL (3.5-5.0); Alkaline Phosphatase 57 U/L (38-126); Anion Gap 12 mmol/L; Blood Urea Nitrogen 8 mg/dL (7-17); Calcium 9.1 mg/dL (8.4-10.2); Carbon Dioxide 27 mmol/L (22-30); Chloride 103 mmol/L (98-107); Glucose 103 mg/dL (74-99); Potassium 4.1 mmol/L (3.5-5.1); Sodium 142 mmol/L (137-145); Total Bilirubin 0.3 mg/dL (0.2-1.3); Total Protein 6.4 g/dL (6.3-8.2)
[2017-11-08] MEDS: ENOXAPARIN 40 MG/0.4 ML SYRINGE SQ SCH (09:16)
[2017-11-08] MEDS: PARoxetine 20 MG TAB PO SCH (09:17)
[2017-11-08] MEDS: FAMOTIDINE 20 MG TAB PO SCH (09:17)
[2017-11-08] MEDS ORDERED: ERGOCALCIFEROL 50,000 UNIT CAP PO SCH (12:00)
[2017-11-08] MEDS: MULTIVITAMINS, THERA 1 EACH TAB PO SCH (12:03)
--- NOTE | 2017-11-08 16:30 | P.PN ---
Subjective Progress Note Date: 11/08/17 This is a 47-year-old female, patient of [facility]. She has a known past medical history of a seizure disorder as a teenager which was about 30 years ago. Patient reports she had been on seizure medications for a little while but has been now off them for many years. Also, history of depression and hypothyroidism. Patient reports that she may have had 2 seizure-like episodes. She was sleeping and woke up to her hands shaking and her head shaking. She was able to go back asleep and then woke up again with similar symptoms. She was able to contact family members and they came to get her and brought her into the emergency room. Per ER report patient was responding slowly to questions and was in what appeared to be a postictal state. Patient even reports that she was having difficulty finding her words to answer questions. She also had some tingling-like sensation on the right side of her face and a headache on the right side of her head. She reports having loss of bladder control and biting her tongue. Patient was given IV Keppra in the emergency room. Neurology has been consulted. Computed tomography scan of the brain shows no acute changes. Drug screen was negative. Patient denies any new medications new antibiotics. She has been having some urinary frequency initial urinalysis is likely contaminated. We'll repeat urinalysis with culture. Patient denies any numbness or weakness on one side of the body. She denies any chest pain or shortness of breath. Denies any nausea or vomiting. Denies any burning with urination. Denies any bowel movement changes. Patient' s brother has a history of epilepsy. 11/07/2017 patient has had no reported seizures to the night. She was seen evaluated by neurology and fatty Keppra 500 mg by mouth twice a day. Patient is scheduled for an MRI of the brain and had the EEG this morning. Patient has no new complaints. On 11/08/2017 patient is alert and oriented 3, no new seizures reported today, she had apparently had a seizure episode yesterday in the evening. Objective - Vital Signs Vital signs: Vital Signs Temp 97.9 F 11/08/17 15:21 Pulse 86 11/08/17 15:21 Resp 16 11/08/17 15:21 BP 144/83 11/08/17 15:21 Pulse Ox 95 11/08/17 15:21 Intake & Output 11/07/17 11/08/17 11/08/17 18:59 06:59 18:59 Intake Total 50 300 Balance 50 300 Intake: Oral 50 Other 300 Other: # Voids 3 3 3 - Exam Head normocephalic and atraumatic Neck supple no JVD Lungs clear to auscultation bilaterally no wheezing or crackles Heart regular rate and rhythm S1-S2, no rub or gallop Abdomen is soft nontender nondistended positive bowel sounds no hepatosplenomegaly Extremities no edema Neuro alert and orientated to 3 - Labs CBC & Chem 7: 11/08/17 06:23 11/08/17 06:23 Labs: Abnormal Lab Results - Last 24 Hours (Table) 11/08/17 Range/Units 06:23 Glucose 103 H (74-99) mg/dL Microbiology - Last 24 Hours (Table) 11/07/17 04:20 Urine Culture - Final Urine,Voided Assessment and Plan Plan: 1. New-onset seizure: Patient does have a remote history of seizure when she was a teenager. She's been off of medications for several years. Neurology is placed patient on Keppra 500 mg every 12 hours by mouth. Dose was increased yesterday to 750 mg twice daily Computed tomography scan of the brain was negative. Patient has MRI of the brain and EEG ordered awaiting results 2. Hypothyroidism resume thyroid medication 3. Vitamin D deficiency: Resume vitamin D 4. Depression continue Paxil 5. Urinary frequency: Improved. Awaiting urine culture. Likely initial urinalysis was a contaminant. Repeat urinalysis showed improvement GI and DVT prophylaxis Pepcid and Lovenox
--- NOTE | 2017-11-08 18:49 | EEG ---
ELECTROENCEPHALOGRAM REPORT DATE OF EE11/08/2017. ELECTROENCEPHALOGRAPHIC EXAMINATION REPORT: INDICATION FOR EXAMINATION: This patient is a 47-year-old female being evaluated for right temporal lobe epileptiform discharge. This is a follow-up EEG for comparison. AGE: [age]. EEG FINDINGS: A routine 21-channel awake digital EEG recording was accomplished utilizing the 10-20 international system with bipolar and referential montages. The background activity in the most alert resting state consists of a low to medium amplitude, fairly well developed and well sustained 7-8 Hz activity over the posterior head regions. This posterior rhythm attenuates to eye opening. There is a small amount of low amplitude 18-20 Hz beta activity seen maximally over the anterior head regions. Muscle and movement artifact was observed on a few occasions during the tracing. Hyperventilation failed to add any additional information to the tracing. No further activation was noted. Photic stimulation at flash frequencies of 2-30 Hz produced a good symmetrical occipital driving response. No epileptiform discharges were seen. IMPRESSION: This EEG is normal for the patient's age. The EEG failed to reveal any focal, lateralized, or epileptiform abnormalities. Compared to the previous EEG performed on 11/07/2017, the right temporal lobe T4 discharge is no longer seen. Clinical correlation is strongly recommended. MMODL / IJN: [id number] /
--- NOTE | 2017-11-08 23:28 | P.PN ---
Subjective Progress Note Date: 11/08/17 This patient is a 47-year-old female who was admitted to Hospital for evaluation of new onset seizure. Patient had several events at home and was admitted to hospital for further evaluation. The patient was seen in the emergency room and loaded with IV Keppra. Patient under went routine EEG yesterday which did reveal right temporal lobe epileptiform discharge. Her dosage of Keppra was increased yesterday to 750 mg by mouth twice a day. Apparently a IV bolus of 1 g of IV Keppra was not administered yesterday evening as was instructed. Apparently was found out by the nurses this morning and it was infused early this morning. The patient has been doing much better today. She did have an MRI of the brain done yesterday which was reported to be negative for any acute findings. The patient also had a repeat EEG today which was reviewed and shows significant improvement from yesterday. We are recommending the patient to be maintained on Keppra at her current dose and we are awaiting the results of the anticonvulsant blood level from the laboratory. We have discussed results of the MRI and EEG today with the patient. Her overall prognosis remains fair. Objective - Vital Signs Vital signs: Vital Signs Temp 97.9 F 11/08/17 15:21 Pulse 86 11/08/17 15:21 Resp 16 11/08/17 15:21 BP 144/83 11/08/17 15:21 Pulse Ox 95 11/08/17 15:21 Intake & Output 11/08/17 11/08/17 11/09/17 06:59 18:59 06:59 Intake Total 300 Balance 300 Weight 92.6 kg Intake: Other 300 Other: # Voids 3 3 - Exam Physical examination: PHYSICAL EXAMINATION: Patient is resting comfortably in bed. VITAL SIGNS: Blood pressure is [144/83]. Heart rate is [86]. Respiration is [16] . Temperature is [97.7]. HEENT: Head is atraumatic, neck is supple, there were no carotid bruits. CHEST: Lungs are clear to auscultation and percussion. CARDIAC: S1, S2 normal rate and rhythm. There is no murmur. ABDOMEN: Soft and nontender. Bowel sounds are present. EXTREMITIES: There is no pedal edema. Peripheral pulses are present. Neurological examination: Patient has a nonfocal neurological examination today. - Labs CBC & Chem 7: 11/08/17 06:23 11/08/17 06:23 Labs: Abnormal Lab Results - Last 24 Hours (Table) 11/08/17 Range/Units 06:23 Glucose 103 H (74-99) mg/dL Microbiology - Last 24 Hours (Table) 11/07/17 04:20 Urine Culture - Final Urine,Voided Assessment and Plan (1) New onset seizure Current Visit: Yes Status: Acute Code(s): R56.9 - UNSPECIFIED CONVULSIONS SNOMED Code(s): 90610469 Plan: This patient is a 47-year-old female who is being evaluated for new onset seizures. The patient has been started on Keppra as primary anticonvulsant therapy. Her Keppra level was still pending today. She is currently taking Keppra 750 mg 1 tablet by mouth twice a day. She was able to complete a repeat EEG today which was reviewed. Her EEG shows significant improvement from yesterday. There was no epileptiform discharges seen. She has undergone MRI of the brain which was reported negative for any acute findings. At this time we will continue her on Keppra monotherapy and will await her blood levels to return hopefully tomorrow and make any adjustments as necessary. If the patient 's Keppra level is therapeutic tomorrow she may be considered for discharge home. She may follow-up in the outpatient neurology clinic in 3-4 weeks. We will continue close neurological follow-up the patient during this admission.
[2017-11-09] MEDS: THYROID, PORK 30 MG TAB PO SCH (07:04)
[2017-11-09 07:06] LABS: Basophils # (A) 0.1 k/uL (0-0.2); Basophils % (A) 1 %; Eosinophils # (A) 0.2 k/uL (0-0.7); Eosinophils % (A) 3 %; HGB 12.8 gm/dL (11.4-16.0); Lymphocytes # (A) 2.1 k/uL (1.0-4.8); Lymphocytes % (A) 31 %; MCHC 33.7 g/dL (31.0-37.0); MCV 83.3 fL (80.0-100.0); Mean Platelet Volume 6.2; Monocytes # (A) 0.4 k/uL (0-1.0); Monocytes % (A) 7 %; Neutrophils # (A) 3.8 k/uL (1.3-7.7); Neutrophils % (A) 57 %; Platelet Count 341 k/uL (150-450); RBC 4.56 m/uL (3.80-5.40); RDW 13.3 % (11.5-15.5); WBC 6.7 k/uL (3.8-10.6)
[2017-11-09 07:12] VITALS: BP 124/86; PULSE 76; TEMP 97.8
[2017-11-09 07:22] LABS: ALT 30 U/L (9-52); AST 32 U/L (14-36); Albumin 4.1 g/dL (3.5-5.0); Alkaline Phosphatase 61 U/L (38-126); Anion Gap 13 mmol/L; Blood Urea Nitrogen 8 mg/dL (7-17); Calcium 9.4 mg/dL (8.4-10.2); Carbon Dioxide 28 mmol/L (22-30); Chloride 102 mmol/L (98-107); Glucose 104 mg/dL (74-99); Potassium 4.3 mmol/L (3.5-5.1); Sodium 143 mmol/L (137-145); Total Bilirubin 0.3 mg/dL (0.2-1.3); Total Protein 6.7 g/dL (6.3-8.2)
[2017-11-09] MEDS: FAMOTIDINE 20 MG TAB PO SCH (08:37)
[2017-11-09] MEDS: ENOXAPARIN 40 MG/0.4 ML SYRINGE SQ SCH (08:37)
[2017-11-09] MEDS: PARoxetine 20 MG TAB PO SCH (08:37)
--- NOTE | 2017-11-09 10:48 | P.PN ---
Subjective Progress Note Date: 11/09/17 This patient is a 47-year-old female who was admitted to Hospital for evaluation of new onset seizure. Patient had several events at home and was admitted to hospital for further evaluation. The patient was seen in the emergency room and loaded with IV Keppra. Patient under went routine EEG yesterday which did reveal right temporal lobe epileptiform discharge. Her dosage of Keppra was increased yesterday to 750 mg by mouth twice a day. Apparently a IV bolus of 1 g of IV Keppra was not administered yesterday evening as was instructed. She did have an MRI of the brain done yesterday which was reported to be negative for any acute findings. The patient also had a repeat EEG today which was reviewed and shows significant improvement from yesterday. We are recommending the patient to be maintained on Keppra at her current dose 750 mg by mouth twice a day and we are awaiting the results of the anticonvulsant blood level from the laboratory. We checked once again this morning with the laboratory and her Keppra blood level is still pending. We have discussed results of the MRI and EEG today with the patient. We reviewed the results of the MRI of the brain and both EEG test results today with her. As noted her repeat EEG yesterday did not show any epileptiform discharges from the right temporal lobe at the T4 electrode. Hopefully this is the effect of the anticonvulsant medication Keppra which is now apparently suppressing any active seizure discharge. Patient was explained [employer] driving law which states she should not be driving.. To 6 months following any recent seizure. The patient is neurologically stable today and has had no further spells. She may be discharged home on her current dose of Keppra 750 mg by mouth twice a day. She is advised to follow-up in the outpatient neurology clinic in 2-3 weeks. We will obtain the Keppra level when available and will contact your further adjustments are to be made in her dosing. Patient feels much better today and is anticipating discharge home by Dr. Peralta later this afternoon. As noted patient is advised to follow-up in the outpatient neurology clinic in 2 -3 weeks. Objective - Vital Signs Vital signs: Vital Signs Temp 97.8 F 11/09/17 07:10 Pulse 76 11/09/17 07:10 Resp 16 11/09/17 07:10 BP 124/86 11/09/17 07:10 Pulse Ox 98 11/09/17 07:10 Intake & Output 11/08/17 11/09/17 11/09/17 18:59 06:59 18:59 Intake Total 530 Balance 530 Weight 92.6 kg Intake: Oral 530 Other: Voiding Method Toilet # Voids 3 2 1 - Exam Physical examination: PHYSICAL EXAMINATION: Patient is resting comfortably in bed. VITAL SIGNS: Blood pressure is [124/86]. Heart rate is [76]. Respiration is [16] . Temperature is [97.7]. HEENT: Head is atraumatic, neck is supple, there were no carotid bruits. CHEST: Lungs are clear to auscultation and percussion. CARDIAC: S1, S2 normal rate and rhythm. There is no murmur. ABDOMEN: Soft and nontender. Bowel sounds are present. EXTREMITIES: There is no pedal edema. Peripheral pulses are present. Neurological examination: Patient has a nonfocal neurological examination today. - Labs CBC & Chem 7: 11/09/17 06:32 11/09/17 06:32 Labs: Abnormal Lab Results - Last 24 Hours (Table) 11/09/17 Range/Units 06:32 Glucose 104 H (74-99) mg/dL Microbiology - Last 24 Hours (Table) 11/07/17 04:20 Urine Culture - Final Urine,Voided Assessment and Plan (1) New onset seizure Current Visit: Yes Status: Acute Code(s): R56.9 - UNSPECIFIED CONVULSIONS SNOMED Code(s): 92003657 Plan: This patient is a 47-year-old female who was initially admitted to hospital with possible breakthrough seizures. Patient was evaluated with routine EEG and MRI of the brain. Transfers EEG did show evidence of epileptiform discharges from the right temporal lobe localizing to the T4 electrode. She was loaded with IV levetiracetam and Keppra and she has been doing much better. Her anticonvulsant blood level is pending at this time. We did discuss the results of the MRI and EEG today with the patient. She is to continue on her current dose of Keppra 750 mg by mouth twice a day. We will check her Keppra level tomorrow and contact her if we need to make adjustments in her dosing. She is advised to follow-up with us in the outpatient neurology clinic in 2-3 weeks. She was once again made aware of the [place] driving law which states she should not be driving for. To 6 months following her last seizure. Case was discussed today with Dr. Peralta's OLINDA Ralph. She was updated on all of the test results and our recommendations for discharge. Patient will be discharged home later today and as mentioned should follow-up with us in the outpatient neurology clinic in 2-3 weeks. Her overall prognosis at this time remains fair.
[2017-11-09] MEDS ORDERED: ERGOCALCIFEROL 50,000 UNIT CAP PO SCH (12:00)
--- NOTE | 2017-11-09 12:31 | P.DS ---
Providers Date of admission: 11/06/17 14:01 Expected date of discharge: 11/09/17 Attending physician: Daniela Peralta Consults: 11/06/17 14:02 Consult Physician Urgent Consulting Provider: Misti Gutierrez Consult Reason/Comments: New-onset seizure Do you want consulting provider notified?: Yes Primary care physician: Bina Mancilla [facility] Course: Discharge diagnosis 1. New-onset seizure: Patient does have a remote history of seizure when she was a teenager. She's been off of medications for several years. Neurology is placed patient on Keppra 500 mg every 12 hours by mouth. Dose was increased yesterday to 750 mg twice daily Computed tomography scan of the brain was negative. MRI of the brain negative. Repeat EEG shows no evidence of seizure activity. Initial EEG abnormal due to a focal epileptiform discharge noted at the T4 electrode. 2. Hypothyroidism resume thyroid medication 3. Vitamin D deficiency: Resume vitamin D 4. Depression continue Paxil 5. UTI ruled out Hospital course This is a 47-year-old female, patient of [facility]. She has a known past medical history of a seizure disorder as a teenager which was about 30 years ago. Patient reports she had been on seizure medications for a little while but has been now off them for many years. Also, history of depression and hypothyroidism. Patient reports that she may have had 2 seizure-like episodes. She was sleeping and woke up to her hands shaking and her head shaking. She was able to go back asleep and then woke up again with similar symptoms. She was able to contact family members and they came to get her and brought her into the emergency room. Per ER report patient was responding slowly to questions and was in what appeared to be a postictal state. Patient even reports that she was having difficulty finding her words to answer questions. She also had some tingling-like sensation on the right side of her face and a headache on the right side of her head. She reports having loss of bladder control and biting her tongue. Patient was given IV Keppra in the emergency room. Neurology has been consulted. Computed tomography scan of the brain shows no acute changes. Drug screen was negative. Patient denies any new medications new antibiotics. She has been having some urinary frequency initial urinalysis is likely contaminated. We'll repeat urinalysis with culture. Patient denies any numbness or weakness on one side of the body. She denies any chest pain or shortness of breath. Denies any nausea or vomiting. Denies any burning with urination. Denies any bowel movement changes. Patient' s brother has a history of epilepsy. Patient did have another seizure during this admission. Repeat EEG was negative. Nephrology did increase the Keppra to 750 mg twice a day. Case discussed with Dr. Gutierrez this morning. He has cleared patient for discharge we 'll follow-up with a Keppra level in the office. Patient is medically stable for discharge. A prescription a prescription for patient. I performed an examination of the patient and discussed their management with the physician Director [employer]. I have reviewed the Physician Director [employer]'s notes and agree with the documented findings and plan of care Patient Condition at Discharge: Stable Plan - Discharge Summary Discharge Rx Participant: No New Discharge Prescriptions: New levETIRAcetam [Keppra] 750 mg PO Q12HR #60 tab Continue Thyroid,Pork [[place] Thyroid] 120 mg PO DAILY PARoxetine [Paxil] 20 mg PO DAILY Ergocalciferol (Vitamin D2) [Vitamin D2] 50,000 unit PO DIRECTED Multivitamins, Thera [Multivitamin (formulary)] 1 tab PO DAILY Discharge Medication List Ergocalciferol (Vitamin D2) [Vitamin D2] 50,000 unit PO DIRECTED 11/06/17 [ History] Multivitamins, Thera [Multivitamin (formulary)] 1 tab PO DAILY 11/06/17 [History ] PARoxetine [Paxil] 20 mg PO DAILY 11/06/17 [History] Thyroid,Pork [[place] Thyroid] 120 mg PO DAILY 11/06/17 [History] levETIRAcetam [Keppra] 750 mg PO Q12HR #60 tab 11/09/17 [Rx] Follow up Appointment(s)/Referral(s): Misti Gutierrez MD [STAFF PHYSICIAN] - 11/30/17 10:15 am (2-3 weeks) Bina Mancilla DO [Primary Care Provider] - 11/10/17 1:00 pm (with Robel PRAKASH) Patient Instructions/Handouts: New-Onset Seizure in Adults (DC) Activity/Diet/Wound Care/Special Instructions: Diet: regular Activity: as tolerated Discharge Disposition: HOME SELF-CARE
== END 2017-11-09 13:35 | disposition home or self-care (01) | DRG 101 ==
LOC: EC 11:34 → 6SEL 14:01 → 3SUR 20:21
PROVIDERS: ADMIT Internal Medicine; ATTEND Internal Medicine
DX: G40.909 Epilepsy, unspecified, not intractable, without status epilepticus (principal); E03.9 Hypothyroidism, unspecified; E55.9 Vitamin D deficiency, unspecified; R32 Unspecified urinary incontinence; F32.9 Major depressive disorder, single episode, unspecified; Z79.890 Hormone replacement therapy; Z79.899 Other long term (current) drug therapy; Z87.891 Personal history of nicotine dependence; Z88.5 Allergy status to narcotic agent; Z82.0 Family history of epilepsy and other diseases of the nervous system; Z82.49 Family history of ischemic heart disease and other diseases of the circulatory system; Z83.3 Family history of diabetes mellitus; Z82.3 Family history of stroke
CPT/HCPCS: 36415; 70450; 70551; 70552; 80053; 80177; 80306; 80320; 81001; 83520; 85025; 87086; 93005; 95816; 95819; 96361; 96374; 96375; 99285

== ENCOUNTER 2018-05-18 10:38 | Day surgery (SDC) | payer BC ==
[2018-05-14 12:35] VITALS: BMI 29.2
[~2018-05-18 10:38] MED LIST: LACTATED RINGERS 1,000 ML IV SCH
[2018-05-18] MEDS ORDERED: LIDOCAINE 1% 20 ML VIAL (10MG/ML) FOR IV START INTRADERMA ONE (11:15)
[2018-05-18 11:18] VITALS: RESP 16; TEMP 98
[2018-05-18] MEDS ORDERED: LIDOCAINE 1% INJ 10MG/ML (20 ML MDV) ONE (11:53)
[2018-05-18] MEDS ORDERED: PROPOFOL 10 MG/ML 20 ML VIAL IV ONE (11:53)
--- NOTE | 2018-05-18 11:56 | P.GSHP ---
History of Present Illness H&P Date: 05/18/18 Chief Complaint: Constipation, hemorrhoids This a 40-year-old female who presents today for colonoscopy. Patient's had issues with constipation and hemorrhoids. Past Medical History Past Medical History: Seizure Disorder, Thyroid Disorder Additional Past Medical History / Comment(s): LAST SEIZURE MAY 03, 2018- NO CURRENT SEIZURE MEDS., SPOUSE STATES HAVING NEUROLOGY TESTING AT [facility]., HYPOGLYCEMIA, RECTAL BLEEDING ? HEMORRHOIDS. History of Any Multi-Drug Resistant Organisms: None Reported Past Surgical History: Appendectomy, Section, Tubal Ligation Past Anesthesia/Blood Transfusion Reactions: No Reported Reaction Smoking Status: Former smoker - Past Family History Mother Family Medical History: Diabetes Mellitus Father Family Medical History: CVA/TIA, Myocardial Infarction ([place]) Medications and Allergies Home Medications Medication Instructions Recorded Confirmed Type Multivitamins, Thera [Multivitamin 1 tab PO DAILY 11/06/17 05/14/18 History (formulary)] PARoxetine [Paxil] 20 mg PO DAILY 11/06/17 05/14/18 History Ibuprofen 400 mg PO DIRECTED PRN 05/14/18 05/14/18 History Melatonin (Unknown Dose) 1 tab PO HS PRN 05/14/18 History Thyroid,Pork [Rayon Coner Thyroid 120] 120 mg PO DAILY 05/14/18 05/14/18 History Allergies Allergy/AdvReac Type Severity Reaction Status Date / Time morphine Allergy Dyspnea Verified 05/14/18 12:07 Surgical - Exam Vital Signs Temp Pulse Resp BP Pulse Ox 98.0 F 79 16 146/86 96 05/18/18 11:15 05/18/18 11:15 05/18/18 11:15 05/18/18 11:15 05/18/18 11:15 - General well developed, no distress - Eyes PERRL - ENT normal pinna - Neck no masses - Respiratory normal expansion - Cardiovascular Rhythm: regular - Abdomen Abdomen: soft, non tender Assessment and Plan Assessment: Constipation, hemorrhoids. We'll perform colonoscopy.
--- NOTE | 2018-05-18 12:19 | P.OP ---
Date of Procedure: 05/18/18 Preoperative Diagnosis: Constipation, hemorrhoids Postoperative Diagnosis: Normal colon, mild internal hemorrhoids Procedure(s) Performed: Colonoscopy Anesthesia: MAC Surgeon: Jose Downing Pathology: none sent Condition: stable Disposition: PACU Description of Procedure: The patient's placed the on the operating table in the lateral position. She received IV sedation. Digital rectal exam was performed which revealed internal hemorrhoids. Flexible colonoscope was then placed patient anus and passed throughout the entire colon. The ileocecal valve was not visualized secondary to retained stool colon. Scope was then withdrawn. The ascending colon, transverse colon descending colon and; appeared normal. Scope was then brought back the rectum and this appeared normal. Scope was withdrawn patient and internal hemorrhoids are noted. Scope was withdrawn for patient.
[2018-05-18 12:38] VITALS: BP 141/80; PULSE 80
== END 2018-05-18 13:02 | disposition home or self-care (01) ==
LOC: ORWHC2ENDO 10:38
PROVIDERS: ATTEND Surgery
DX: K59.00 Constipation, unspecified (principal); K64.8 Other hemorrhoids; E07.9 Disorder of thyroid, unspecified; G40.909 Epilepsy, unspecified, not intractable, without status epilepticus; Z87.891 Personal history of nicotine dependence; Z83.3 Family history of diabetes mellitus; Z82.49 Family history of ischemic heart disease and other diseases of the circulatory system; Z79.1 Long term (current) use of non-steroidal anti-inflammatories (NSAID); Z79.890 Hormone replacement therapy; Z79.899 Other long term (current) drug therapy
CPT/HCPCS: 81025; 45378; J2001; J2704

== ENCOUNTER 2018-12-06 06:29 | Day surgery (SDC) | payer BC ==
[2018-12-05 12:10] VITALS: BMI 34.7
--- NOTE | 2018-12-05 20:40 | P.HPOB ---
History of Present Illness H&P Date: 12/05/18 Chief Complaint: Menorrhagia with irregular cycle This is a 48-year-old female 5 para 3 who presents for dilation and curettage with hysteroscopy and NovaSure endometrial ablation secondary to menorrhagia with irregular cycle. She complains of menses that are lasting almost 2 months straight. The last 2 months she has had bleeding most of the time. The heavy days last up to a week at a time. She has had occasional skipped periods also. She would like definitive surgical treatment to control her bleeding problem. Her pelvic ultrasound showed a uterus measuring 10.7 x 8.6 x 7.2 cm with an endometrial stripe thickness of 6 mm. Both ovaries appeared essentially normal. She has had a tubal ligation. Obstetrical history: . History of 2 deliveries and 1 vaginal delivery. She also has a history of 2 miscarriages. Gynecologic history: No history of sexually transmitted diseases. She has had a tubal ligation and her partner also has had a vasectomy. Social history: She is . She works in daycare. Review of Systems Constitutional: Reports fatigue, Denies chills, Denies fever Eyes: bilateral blurred vision, denies pain Ears, nose, mouth and throat: Denies headache, Denies sore throat Cardiovascular: Denies chest pain, Denies shortness of breath Gastrointestinal: Reports abdominal pain, Reports constipation, Denies diarrhea, Denies nausea, Denies vomiting Genitourinary: Reports menorrhagia, Reports pelvic pain, Reports urinary frequency Menstruation: Reports menses 8 or > days, Reports menses variable, Reports period heavy Musculoskeletal: Denies myalgias Integumentary: Denies pruritus, Denies rash Neurological: Reports seizures (Last seizure over 1 year ago), Denies numbness, Denies weakness Psychiatric: Reports anxiety, Reports depression, Reports difficulty concentrating, Reports insomnia, Reports irritability Hematologic/Lymphatic: Reports easy bruising Past Medical History Past Medical History: Seizure Disorder, Thyroid Disorder Additional Past Medical History / Comment(s): LAST SEIZURE MAY 03, 2018- NO CURRENT SEIZURE MEDS.-follows w/neurologist, HYPOGLYCEMIA, IBS, heavy frequent periods History of Any Multi-Drug Resistant Organisms: None Reported Past Surgical History: Appendectomy, Section, Tubal Ligation Additional Past Surgical History / Comment(s): LASIK eye surgery Past Anesthesia/Blood Transfusion Reactions: No Reported Reaction Past Psychological History: Anxiety Smoking Status: Former smoker Past Alcohol Use History: Rare Past Drug Use History: None Reported - Past Family History Mother Family Medical History: Diabetes Mellitus Father Family Medical History: CVA/TIA, Myocardial Infarction ([place]) Medications and Allergies Home Medications Medication Instructions Recorded Confirmed Type Multivitamins, Thera [Multivitamin 1 tab PO DAILY 11/06/17 12/05/18 History (formulary)] PARoxetine [Paxil] 20 mg PO DAILY 11/06/17 12/05/18 History Melatonin 5 mg PO HS PRN 05/14/18 12/05/18 History Ergocalciferol (Vitamin D2) 50,000 unit PO SUWE 12/05/18 12/05/18 History [Vitamin D2] Thyroid,Pork [[place] Thyroid] 120 mg PO DAILY 12/05/18 12/05/18 History Allergies Allergy/AdvReac Type Severity Reaction Status Date / Time morphine Allergy Dyspnea Verified 12/05/18 11:51 Exam Osteopathic Statement: *. No significant issues noted on an osteopathic structural exam other than those noted in the History and Physical/Consult. Intake and Output 12/05/18 12/05/18 12/05/18 06:59 14:59 22:59 Other: Weight 86.183 kg HEENT: Within normal limits Heart: Regular rate and rhythm Lungs: Clear to auscultation bilaterally Abdomen: Soft, nontender Pelvic exam: Uterus is small, mid position, nontender, with no adnexal masses palpated. Mild bilateral tenderness is noted. An first-degree cystocele and rectocele are noted. Minimal grade 1 uterine prolapse is also noted. Extremities: Negative Homans Assessment and Plan (1) Menorrhagia with irregular cycle Status: Acute Code(s): N92.1 - EXCESSIVE AND FREQUENT MENSTRUATION WITH IRREGULAR CYCLE SNOMED Code(s): 220312040 Plan: Proceed with dilation and curettage with hysteroscopy and NovaSure endometrial ablation
[~2018-12-06 06:29] MED LIST changes: +DEXAMETHASONE SOD PHOSPHATE 10 MG/ML 1 ML VIAL IV ONE; +HYDROmorphone 0.5 MG/0.5 ML SYRINGE IVP PRN; +LIDOCAINE 1% 20 ML VIAL (10MG/ML) FOR IV START INTRADERMA PRN; +MIDAZOLAM 2 MG/2 ML VIAL IV PRN; +ONDANSETRON 4 MG/2 ML VIAL IVP ONE; +Pre Op ABX Message 1 EACH MISC MISCELLANE ONE; +SCOPOLAMINE 1.5MG/72HR PATCH TRANSDERM ONE
[2018-12-06 07:13] LABS: Glucose,Whole Blood 124 mg/dL (75-99)
[2018-12-06] MEDS ORDERED: PROPOFOL 10 MG/ML 20 ML VIAL IV ONE (07:25)
[2018-12-06] MEDS ORDERED: KETOROLAC 30 MG/ML 1 ML VIAL ONE (07:25)
[2018-12-06] MEDS ORDERED: fentaNYL (PF) 50 MCG/ML 2 ML AMP ONE (07:25)
[2018-12-06] MEDS ORDERED: MIDAZOLAM 2 MG/2 ML VIAL ONE (07:25)
[2018-12-06] MEDS ORDERED: LIDOCAINE 1% INJ 10MG/ML (20 ML MDV) ONE (07:25)
--- NOTE | 2018-12-06 08:03 | P.OP ---
Date of Procedure: 12/06/18 Preoperative Diagnosis: Menorrhagia with irregular cycles Postoperative Diagnosis: Same Procedure(s) Performed: Dilation and curettage with hysteroscopy Anesthesia: other (Mask general) Surgeon: Nevin Calabrese Estimated Blood Loss (ml): 10 Pathology: other (Endometrial curettings) Condition: stable Disposition: same day Indications for Procedure: This is a 48-year-old female 5 para 3 who presents for dilation and curettage with hysteroscopy and NovaSure endometrial ablation secondary to menorrhagia with irregular cycle. She complains of menses that are lasting almost 2 months straight. The last 2 months she has had bleeding most of the time. The heavy days last up to a week at a time. She has had occasional skipped periods also. She would like definitive surgical treatment to control her bleeding problem. Her pelvic ultrasound showed a uterus measuring 10.7 x 8.6 x 7.2 cm with an endometrial stripe thickness of 6 mm. Both ovaries appeared essentially normal. She has had a tubal ligation. Operative Findings: Uterus is retroverted and sounded to 6-1/2 cm. Cervix is sounded to 3 cm. Upon hysteroscopy, both tubal ostia are visualized. A slight dyssynchronous endometrial pattern is noted. No adnexal masses are palpated. There is some firmness posteriorly to the uterus consistent with a possible subserosal fibroid posteriorly. Description of Procedure: The patient is taken to the operating room. She is placed in the dorsal lithotomy position after general anesthesia was given. She is prepped and draped in the normal sterile fashion. Bladder is drained with a catheter and then removed. Pelvic exam is performed under anesthesia. Uterus is found to be retroverted with no adnexal masses. She is placed in slight Trendelenburg position. A right angle retractor is used to visualize the cervix. The anterior lip of the cervix is grasped with a single-tooth tenaculum. Cervix is sounded to 3 cm. Uterus is sounded to 6.5 cm. Cervix is gently dilated with James dilators until a hysteroscope could be passed. Hysteroscopy is performed using normal saline. The above noted findings are noted. Next a polyp forceps is introduced. A minimal amount of tissue was obtained. Next medium-sized size sharp curette was placed. A minimal to moderate amount of endometrial curettings were obtained. Next NovaSure array was inserted into the endometrial cavity. Length was set at 4 cm and width was determined to be 2 cm. at this point the array was then removed and then reinserted. Width was still too low for the machine to fire. Therefore the cavity assessment was not even attempted because the width was too narrow. The NovaSure part of the procedure was then abandoned. Single-tooth tenaculum was removed from the anterior lip of the cervix. Pressure was applied with a ring forcep. Minimal bleeding was noted. All other instruments removed from the vagina. Sponge counts were correct. Patient is taken to recovery room in stable condition.
[2018-12-06 08:14] VITALS: TEMP 98.5
[2018-12-06 09:24] VITALS: BP 146/87; PULSE 79; RESP 18
== END 2018-12-06 09:28 | disposition home or self-care (01) ==
LOC: OR 06:29
PROVIDERS: ATTEND Obstetrics & Gynecology
DX: N84.0 Polyp of corpus uteri (principal); N92.0 Excessive and frequent menstruation with regular cycle; Z98.51 Tubal ligation status; E07.9 Disorder of thyroid, unspecified; R56.9 Unspecified convulsions; E16.2 Hypoglycemia, unspecified; K58.9 Irritable bowel syndrome, unspecified; Z79.890 Hormone replacement therapy; Z79.899 Other long term (current) drug therapy; Z88.5 Allergy status to narcotic agent
CPT/HCPCS: 81025; 88305; 58558; J2250; J1100; J2405; J2001; J3010; J1885; J2704

== ENCOUNTER → 2019-01-16 | Outpatient (CLI) | payer BC ==
[2019-01-16 14:50] LABS: African American GFR (CKD) >90 (>60 ml/min/1.73 sqM); Anion Gap 12 mmol/L; Blood Urea Nitrogen 10 mg/dL (7-17); Calcium 9.3 mg/dL (8.4-10.2); Carbon Dioxide 25 mmol/L (22-30); Chloride 102 mmol/L (98-107); Glucose 150 mg/dL (74-99); Non-African American GFR(CKD) >90 (>60 ml/min/1.73 sqM); Potassium 4.1 mmol/L (3.5-5.1); Sodium 139 mmol/L (137-145)
[2019-01-16 14:53] LABS: Basophils % (A) 1 %; Eosinophils # (A) 0.2 k/uL (0-0.7); Eosinophils % (A) 3 %; HGB 11.4 gm/dL (11.4-16.0); Lymphocytes # (A) 1.7 k/uL (1.0-4.8); Lymphocytes % (A) 23 %; MCH 27.6 pg (25.0-35.0); MCHC 32.7 g/dL (31.0-37.0); MCV 84.4 fL (80.0-100.0); Mean Platelet Volume 6.6; Monocytes # (A) 0.3 k/uL (0-1.0); Monocytes % (A) 5 %; Neutrophils # (A) 5.1 k/uL (1.3-7.7); Neutrophils % (A) 68 %; Platelet Count 321 k/uL (150-450); RBC 4.15 m/uL (3.80-5.40); RDW 13.4 % (11.5-15.5); WBC 7.6 k/uL (3.8-10.6)
== END | disposition home or self-care (01) ==
LOC: LABPAT 13:49
PROVIDERS: ATTEND Obstetrics & Gynecology
DX: Z01.812 Encounter for preprocedural laboratory examination (principal)
CPT/HCPCS: 36415; 80048; 85025; 86850; 86900; 86901

== ENCOUNTER 2019-01-24 05:55 | Inpatient (IN) | payer BC ==
--- NOTE | 2019-01-23 20:25 | P.HPOB ---
History of Present Illness H&P Date: 01/23/19 Chief Complaint: Menorrhagia with irregular cycle, pelvic pain This is a 48 y.o. female, 5, para 3, who presents for total abdominal hysterectomy with bilateral salpingoophorectomy due to menorrhagia with irregular cycle and pelvic pain. She did undergo an attempted endometrial ablation, but this was unable to be performed due to her uterus was too narrow. Previous ultrasound showed a uterus measuring 8.5 x 5.7 x 6.4 cm with an endometrial thickness of 1.4 cm. She did have a 1 cmu terine fibroid. Pathology from recent D&C was benign. She has elected to remove ovaries at the time of surgery. OB Hx: . History of 2 sections and 2 miscarriages. Display Mechanic Hx: No hx of STDs. She has had a tubal ligation. Social Hx: She is and works in daycare. Review of Systems Constitutional: Denies chills, Denies fever Eyes: denies blurred vision, denies pain Ears, nose, mouth and throat: Denies headache, Denies sore throat Cardiovascular: Denies chest pain, Denies shortness of breath Respiratory: Denies cough Gastrointestinal: Reports abdominal pain, Reports constipation Genitourinary: Reports menorrhagia, Reports urinary frequency Menstruation: Reports period heavy Integumentary: Denies pruritus, Denies rash Neurological: Denies numbness, Denies weakness Psychiatric: Reports anxiety, Reports depression, Reports difficulty concentrating, Reports insomnia, Reports irritability Endocrine: Reports fatigue Hematologic/Lymphatic: Reports easy bruising Past Medical History Past Medical History: Seizure Disorder, Thyroid Disorder Additional Past Medical History / Comment(s): LAST SEIZURE MAY 03, 2018- NO CURRENT SEIZURE MEDS.-follows w/neurologist, HYPOGLYCEMIA, IBS, heavy frequent periods History of Any Multi-Drug Resistant Organisms: None Reported Past Surgical History: Appendectomy, Section, Tubal Ligation Additional Past Surgical History / Comment(s): LASIK eye surgery, D & C Past Anesthesia/Blood Transfusion Reactions: No Reported Reaction Past Psychological History: Anxiety Smoking Status: Former smoker Past Alcohol Use History: Rare Past Drug Use History: None Reported - Past Family History Mother Family Medical History: Diabetes Mellitus Father Family Medical History: CVA/TIA, Myocardial Infarction ([place]) Medications and Allergies Home Medications Medication Instructions Recorded Confirmed Type Multivitamins, Thera [Multivitamin 1 tab PO DAILY 11/06/17 01/23/19 History (formulary)] PARoxetine [Paxil] 20 mg PO DAILY 11/06/17 01/23/19 History Melatonin 5 mg PO HS PRN 05/14/18 01/23/19 History Ergocalciferol (Vitamin D2) 50,000 unit PO SUWE 12/05/18 01/23/19 History [Vitamin D2] Thyroid,Pork [[place] Thyroid] 120 mg PO DAILY 12/05/18 01/23/19 History Allergies Allergy/AdvReac Type Severity Reaction Status Date / Time morphine Allergy Dyspnea Verified 01/23/19 09:15 Exam Osteopathic Statement: *. No significant issues noted on an osteopathic structural exam other than those noted in the History and Physical/Consult. Intake and Output 01/23/19 01/23/19 01/23/19 06:59 14:59 22:59 Other: Weight 90.718 kg HEENT: Within normal limits Heart: Regular rate and rhythm Lungs: Clear to auscultation bilaterally Abdomen: Soft, nontender Pelvic exam: Uterus is prolapsed with first-degree and mid position, mildly tender, with no adnexal masses palpated but mild tenderness noted bilaterally. Extremities: Negative Homans. Assessment and Plan (1) Pelvic pain Status: Acute Code(s): R10.2 - PELVIC AND PERINEAL PAIN SNOMED Code(s): 73928581 (2) Menorrhagia with irregular cycle Status: Acute Code(s): N92.1 - EXCESSIVE AND FREQUENT MENSTRUATION WITH IRREGULAR CYCLE SNOMED Code(s): 359275689 Plan: Proceed with total abdominal hysterectomy with bilateral salpingo-oophorectomy. I have discussed the risks, benefits, and alternative therapies for the above- mentioned procedure and for both sedation/anesthesia as well as necessary blood products administration, if indicated, as they pertain to this patient. The patient has indicated her understanding and acceptance of the risks and procedures discussed.
[~2019-01-24 05:55] MED LIST changes: -HYDROmorphone 0.5 MG/0.5 ML SYRINGE IVP PRN; -LACTATED RINGERS 1,000 ML IV SCH; -Pre Op ABX Message 1 EACH MISC MISCELLANE ONE
[2019-01-24 06:33] LABS: Glucose,Whole Blood 124 mg/dL (75-99)
[2019-01-24] MEDS: LACTATED RINGERS 1,000 ML IV SCH ×3 (06:36→22:23)
[2019-01-24] MEDS ORDERED: GLYCOPYRROLATE 0.2 MG/ML 2 ML VIAL ONE (07:25)
[2019-01-24] MEDS ORDERED: KETOROLAC 30 MG/ML 1 ML VIAL ONE (07:25)
[2019-01-24] MEDS ORDERED: HYDROmorphone (PF) 1 MG/ML ONE (07:25)
[2019-01-24] MEDS ORDERED: NEOSTIGMINE 1 MG/ML 10 ML VIAL ONE (07:25)
[2019-01-24] MEDS ORDERED: SUCCINYLCHOLINE CHLORIDE VIAL 200 MG/10 ML VIAL IV ONE (07:25)
[2019-01-24] MEDS ORDERED: fentaNYL (PF) 50 MCG/ML 2 ML AMP ONE (07:25)
[2019-01-24] MEDS ORDERED: LIDOCAINE 1% INJ 10MG/ML (20 ML MDV) ONE (07:25)
[2019-01-24] MEDS ORDERED: PROPOFOL 10 MG/ML 20 ML VIAL IV ONE (07:25)
[2019-01-24] MEDS ORDERED: ROCURONIUM BROMIDE 10 MG/ML 10 ML VIAL IV ONE (07:25)
--- NOTE | 2019-01-24 08:38 | P.OP ---
Date of Procedure: 01/24/19 Preoperative Diagnosis: Menorrhagia with irregular cycle Pelvic pain Postoperative Diagnosis: Same Procedure(s) Performed: Total abdominal hysterectomy with bilateral salpingo-oophorectomy Anesthesia: RICHARD Surgeon: Nevin Calabrese Speech And Drama Teacher #1: Walker Pfeiffer Estimated Blood Loss (ml): 50 Pathology: other (Uterus with cervix and bilateral tubes and ovaries) Condition: stable Disposition: floor Indications for Procedure: This is a 48 y.o. female, 5, para 3, who presents for total abdominal hysterectomy with bilateral salpingoophorectomy due to menorrhagia with irregular cycle and pelvic pain. She did undergo an attempted endometrial ablation, but this was unable to be performed due to her uterus was too narrow. Previous ultrasound showed a uterus measuring 8.5 x 5.7 x 6.4 cm with an endometrial thickness of 1.4 cm. She did have a 1 cmu terine fibroid. Pathology from recent D&C was benign. She has elected to remove ovaries at the time of surgery. Operative Findings: Normal appearing uterus tubes and ovaries Description of Procedure: The patient is taken to the operating room where she is placed in the dorsal supine position. She is prepped and draped in the normal sterile fashion including Ramires catheter insertion and vaginal prep. A Pfannenstiel skin incision is made with a scalpel. A second knife was used to carry the incision down to the underlying layer of fascia. The fascia was nicked in the midline with a scalpel and then extended laterally bilaterally with Garza scissors. The superior aspect of the fascial incision was grasped with Mohinder clamps, elevated off the underlying rectus muscle in the midline and then cut with Garza scissors. The inferior aspect of the fascial incision was grasped with Mohinder clamps, elevated off the underlying rectus muscle in the midline and then cut with Garza scissors. Next the peritoneum was identified and entered sharply with Garza scissors. It is extended superiorly and in fairly with Metzenbaum scissors with good visualization of underlying structures. Next the Giovanna retractor is placed in the bladder blade was inserted. The bowels were packed with a 3 yard laparotomy sponge. Next the uterus is brought up incision and the corneal regions are grasped with Iliana clamps on both sides. The infundibulopelvic ligament was clamped on either side with a Reinaldo clamp, cut with Garza scissors, and sutured with 0 Vicryl suture in Reinaldo transfixion stitches. The remaining uterine ovarian ligament and round ligament was clamped on either side with a Reinaldo clamp, cut with Garza scissors, and sutured with 0 Vicryl suture in Reinaldo transfixion stitches. The vesicouterine peritoneum was sharply dissected away from the bladder with Metzenbaum scissors and pushed inferiorly. The uterine arteries are clamped on either side with a Reinaldo clamp. The uterine arteries are then cut with Garza scissors, and sutured with 0 Vicryl suture in Reinaldo transfixion stitches. Next the cardinal ligaments were clamped on either side with Reinaldo clamp, cut with Garza scissors, and sutured with 0 Vicryl suture in Reinaldo transfixion stitches. The uterosacral ligaments are clamped on either side with Reinaldo clamps, cut with Garza scissors, and sutured with 0 Vicryl suture in Reinaldo transfixion stitches on either side. The edges of the vaginal cuff were clamped on either side with a Reinaldo clamp, cut with Garza scissors, and sutured with 0 Vicryl suture in Reinaldo transfixion stitches and held on either side. The vaginal mucosa was then cut just below the level of the cervix and the specimen is removed from the field. The edges of the vaginal cuff were held with Mohinder clamps. Next the previously held corners of each side of the vaginal cuff were then whipstitched along the connective tissue on either side and brought through the corner of the cuff and tied. Next the vaginal cuff was sutured with 0 Vicryl suture in a running locked fashion. Good hemostasis was noted. Copious irrigation is carried out with warm saline. Excellent hemostasis is noted. All sponges are removed from the abdomen and sponge counts are correct. The peritoneum is then closed with 0 Vicryl suture in a running fashion. The muscle was then reapproximated with 0 Vicryl suture in interrupted fashion. The fascia layer is then closed with 0 PDS suture in a running fashion with the knots buried on either side and in the midline. Next the subcutaneous tissues closed with 2-0 Vicryl suture in a running fashion. The skin is closed with emil. All sponge and needle counts are correct and the patient is taken to recovery room in stable condition.
[2019-01-24] MEDS: HYDROmorphone 0.5 MG/0.5 ML SYRINGE IVP PRN ×4 (09:03→09:24)
[2019-01-24] MEDS ORDERED: LACTATED RINGERS 1,000 ML IV ONE (09:30)
[2019-01-24] MEDS ORDERED: diphenhydrAMINE 50 MG/ML 1 ML VIAL IVP ONE ×2 (09:32→09:38)
[2019-01-24] MEDS ORDERED: METOCLOPRAMIDE 5 MG/ML 2 ML VIAL IVP PRN (09:50)
[2019-01-24] MEDS ORDERED: NALOXONE 0.4 MG/ML 1 ML VIAL IV PRN (09:50)
[2019-01-24] MEDS ORDERED: PARoxetine 20 MG TAB PO SCH (09:50)
[2019-01-24] MEDS ORDERED: diphenhydrAMINE 50 MG/ML 1 ML VIAL IVP PRN (09:50)
[2019-01-24] MEDS ORDERED: IBUPROFEN 600 MG TAB PO PRN (09:50)
[2019-01-24] MEDS ORDERED: ONDANSETRON 4 MG/2 ML VIAL IVP PRN (09:50)
[2019-01-24] MEDS ORDERED: SIMETHICONE 80 MG CHEWABLE PO PRN (09:50)
[2019-01-24] MEDS ORDERED: ZOLPIDEM 5 MG TAB PO PRN (09:50)
[2019-01-24] MEDS: HYDROmorphone PCA 10 MG/50 ML BAG IV PRN (10:45)
[2019-01-24] MEDS: THYROID, PORK 30 MG TAB PO SCH (10:58)
[2019-01-24 17:29] VITALS: BMI 38.4
[2019-01-24] MEDS: SENNOSIDES-DOCUSATE SODIUM 1 EACH TAB PO SCH ×2 (17:46→22:18)
[2019-01-25] MEDS: HYDROmorphone PCA 10 MG/50 ML BAG IV PRN (05:16)
[2019-01-25] MEDS: LACTATED RINGERS 1,000 ML IV SCH ×5 (06:48→20:56)
[2019-01-25 07:12] LABS: Basophils % (A) 0 %; Eosinophils % (A) 0 %; HCT 32.8 % (34.0-46.0); HGB 10.3 gm/dL (11.4-16.0); Lymphocytes # (A) 1.4 k/uL (1.0-4.8); Lymphocytes % (A) 16 %; MCH 27.6 pg (25.0-35.0); MCHC 31.5 g/dL (31.0-37.0); MCV 87.4 fL (80.0-100.0); Mean Platelet Volume 6.7; Monocytes # (A) 0.7 k/uL (0-1.0); Monocytes % (A) 7 %; Neutrophils # (A) 6.6 k/uL (1.3-7.7); Neutrophils % (A) 75 %; Platelet Count 343 k/uL (150-450); RBC 3.75 m/uL (3.80-5.40); RDW 14.7 % (11.5-15.5); WBC 8.8 k/uL (3.8-10.6)
[2019-01-25] MEDS: THYROID, PORK 30 MG TAB PO SCH (08:07)
[2019-01-25] MEDS: SENNOSIDES-DOCUSATE SODIUM 1 EACH TAB PO SCH ×2 (08:08→20:47)
[2019-01-25] MEDS: KETOROLAC 30 MG/ML 1 ML VIAL IVP PRN ×3 (08:09→20:47)
--- NOTE | 2019-01-25 08:56 | P.PN ---
Subjective Progress Note Date: 01/25/19 Principal diagnosis: Status post ERROL/BSO postoperative day #1 Patient has not ambulated much yet. She is passing some flatus. She denies any bowel movement yet. She has not urinated since the catheter was removed earlier this morning area Objective - Vital Signs Vital signs: Vital Signs Temp 98.6 F 01/25/19 04:05 Pulse 92 01/25/19 04:05 Resp 14 01/25/19 04:05 BP 120/76 01/25/19 04:05 Pulse Ox 97 01/25/19 04:05 Intake & Output 01/24/19 01/25/19 01/25/19 18:59 06:59 18:59 Intake Total 1050 Output Total 1200 2300 Balance -150 -2300 Intake: IV 1050 Output: Urine 1150 2300 Estimated Blood Loss 50 Other: Voiding Method Indwelling Catheter Indwelling Catheter - Constitutional General appearance: Present: no acute distress - Gastrointestinal Gastrointestinal Comment(s): Incision is clean dry and intact with emil in place General gastrointestinal: Present: normal bowel sounds, tenderness (Mild) - Labs CBC & Chem 7: 01/25/19 06:35 Labs: Abnormal Lab Results - Last 24 Hours (Table) 01/25/19 Range/Units 06:35 RBC 3.75 L (3.80-5.40) m/uL Hgb 10.3 L (11.4-16.0) gm/dL Hct 32.8 L (34.0-46.0) % Assessment and Plan Assessment: Impression is status post ERROL/BSO postoperative day #1 (1) Pelvic pain Current Visit: No Status: Acute Code(s): R10.2 - PELVIC AND PERINEAL PAIN SNOMED Code(s): 74651734 (2) Menorrhagia with irregular cycle Current Visit: No Status: Acute Code(s): N92.1 - EXCESSIVE AND FREQUENT MENSTRUATION WITH IRREGULAR CYCLE SNOMED Code(s): 972925800 Plan: Will continue with postoperative care today. Patient is encouraged to ambulate. Will switch to [place] and ibuprofen for pain control. May shower.
[2019-01-25] MEDS ORDERED: HYDROcodone/APAP 5-325MG 1 EACH TAB PO PRN (08:57)
[2019-01-25] MEDS: HYDROcodone/APAP 7.5-325MG 1 EACH TAB PO PRN ×2 (10:44→16:38)
[2019-01-25 12:02] LABS: Glucose,Whole Blood 111 mg/dL (75-99)
[2019-01-25] MEDS ORDERED: diphenhydrAMINE 25 MG CAP PO PRN (12:05)
[2019-01-25 17:07] LABS: Glucose,Whole Blood 99 mg/dL (75-99)
[2019-01-25] MEDS ORDERED: PARoxetine 20 MG TAB PO SCH (21:00)
[2019-01-26] MEDS: HYDROcodone/APAP 7.5-325MG 1 EACH TAB PO PRN ×3 (03:16→15:45)
[2019-01-26] MEDS: LACTATED RINGERS 1,000 ML IV SCH (03:16)
[2019-01-26] MEDS: SENNOSIDES-DOCUSATE SODIUM 1 EACH TAB PO SCH (08:38)
[2019-01-26] MEDS: KETOROLAC 30 MG/ML 1 ML VIAL IVP PRN (08:38)
[2019-01-26] MEDS: THYROID, PORK 30 MG TAB PO SCH (08:38)
[2019-01-26 09:42] VITALS: TEMP 98.1
--- NOTE | 2019-01-26 11:48 | P.DS ---
Providers Date of admission: 01/24/19 05:55 Expected date of discharge: 01/26/19 Attending physician: Nevin Calabrese Primary care physician: Bina Mancilla Hospital Course: Is doing very well postop day 2. She is involuting and voiding and tolerating her diet. She is passing flatus. Her vital signs are stable and afebrile. She voices no complaints and is requesting discharge home today. On physical exam again vital signs are stable and afebrile. Heart was regular abdomen was soft incisions clean dry and intact. Extremities without pain. She does have bowel sounds. It is noted she had some mild fine crackles in the lower bases earlier this morning but is improved since getting her abdomen remained encouraging deep coughing and incentive spirometry. Since she has no other issues and she is not have any signs or symptoms of pneumonia we'll still plan to discharge her to home later this afternoon. All other questions were answered for her at this time. Discharge instructions were thoroughly reviewed and she is again stable for discharge this time. Patient Condition at Discharge: Good Plan - Discharge Summary Discharge Rx Participant: Yes New Discharge Prescriptions: New Ibuprofen [Motrin] 600 mg PO Q6HR PRN #30 tab PRN Reason: Pain HYDROcodone/APAP 5-325MG [[place] 5-325] 1 tab PO Q4HR PRN #30 tab PRN Reason: Pain No Action PARoxetine [Paxil] 20 mg PO DAILY Multivitamins, Thera [Multivitamin (formulary)] 1 tab PO DAILY Melatonin 5 mg PO HS PRN PRN Reason: Insomnia Thyroid,Pork [[place] Thyroid] 120 mg PO DAILY Ergocalciferol (Vitamin D2) [Vitamin D2] 50,000 unit PO SUWE Discharge Medication List Multivitamins, Thera [Multivitamin (formulary)] 1 tab PO DAILY 11/06/17 [History] PARoxetine [Paxil] 20 mg PO DAILY 11/06/17 [History] Melatonin 5 mg PO HS PRN 05/14/18 [History] Ergocalciferol (Vitamin D2) [Vitamin D2] 50,000 unit PO SUWE 12/05/18 [History] Thyroid,Pork [[place] Thyroid] 120 mg PO DAILY 12/05/18 [History] HYDROcodone/APAP 5-325MG [[place] 5-325] 1 tab PO Q4HR PRN #30 tab 01/26/19 [Rx] Ibuprofen [Motrin] 600 mg PO Q6HR PRN #30 tab 01/26/19 [Rx] Follow up Appointment(s)/Referral(s): Nevin Calabrese DO [Doctor of Osteopathic Medicine] - 1 Week Activity/Diet/Wound Care/Special Instructions: No heavy lifting, limit stairs and driving, and pelvic rest. If any high temperatures, heavy bleeding, or severe pain call Dr. Calabrese Discharge Disposition: HOME SELF-CARE
[2019-01-26 13:53] VITALS: BP 151/85; PULSE 88; RESP 20
== END 2019-01-26 16:00 | disposition home or self-care (01) | DRG 743 ==
LOC: 2ORMAIN 05:55 → 6PED 08:45
PROVIDERS: ADMIT Obstetrics & Gynecology; ATTEND Obstetrics & Gynecology
PROC: 0UT20ZZ Resection of Bilateral Ovaries, Open Approach (ICD-10-PCS; principal; 2019-01-24 07:30)
PROC: 0UT70ZZ Resection of Bilateral Fallopian Tubes, Open Approach (ICD-10-PCS; principal; 2019-01-24 07:30)
PROC: 0UT90ZZ Resection of Uterus, Open Approach (ICD-10-PCS; principal; 2019-01-24 07:30)
DX: N92.0 Excessive and frequent menstruation with regular cycle (principal); F41.9 Anxiety disorder, unspecified; K58.9 Irritable bowel syndrome, unspecified; Z79.899 Other long term (current) drug therapy; Z82.49 Family history of ischemic heart disease and other diseases of the circulatory system; Z83.3 Family history of diabetes mellitus; Z87.891 Personal history of nicotine dependence; Z98.51 Tubal ligation status; Z98.891 History of uterine scar from previous surgery; Z79.890 Hormone replacement therapy; Z88.5 Allergy status to narcotic agent
CPT/HCPCS: 81025; 85025; 86850; 86900; 86901; 88307

== ENCOUNTER 2020-05-18 15:57 | Emergency (ER) | payer BC ==
[2020-05-18 16:03] VITALS: RESP 18
--- NOTE | 2020-05-18 17:04 | ED ---
General Adult HPI - General Chief complaint: Upper Respiratory Infection Stated complaint: Chest Pain, Nausea Time Seen by Provider: 05/18/20 16:00 Source: patient, RN notes reviewed, old records reviewed Mode of arrival: ambulatory Limitations: no limitations - History of Present Illness Initial comments: This is a 50-year-old female presents emergency Department complaining of exposure to COVID. Patient states was diagnosed on Monday. Patient states she is having generalized body aches and feeling tired. Patient states she does occasionally has a cough but she has no shortness of breath or difficulty breathing. Patient denies any chest pain. Patient denies any palpitations. Patient denies any loss of taste or smell. Patient denies any diarrhea. Triage note indicates she didn't shortness of breath but she denied it to me. - Related Data Home Medications Medication Instructions Recorded Confirmed Acetaminophen Tab [Tylenol Tab] 1,000 mg PO Q6HR PRN 05/18/20 05/18/20 Previous Rx's Medication Instructions Recorded Dexamethasone [Decadron] 6 mg PO DAILY 10 Days #10 tablet 05/18/20 Allergies Allergy/AdvReac Type Severity Reaction Status Date / Time morphine AdvReac Dyspnea Verified 05/18/20 17:21 Review of Systems ROS Statement: Those systems with pertinent positive or pertinent negative responses have been documented in the HPI. ROS Other: All systems not noted in ROS Statement are negative. Past Medical History Past Medical History: Seizure Disorder, Thyroid Disorder Additional Past Medical History / Comment(s): LAST SEIZURE MAY 03, 2018- NO CURRENT SEIZURE MEDS.-follows w/neurologist, HYPOGLYCEMIA, IBS, heavy frequent periods History of Any Multi-Drug Resistant Organisms: None Reported Past Surgical History: Appendectomy, Section, Tubal Ligation Additional Past Surgical History / Comment(s): LASIK eye surgery, D & C Past Anesthesia/Blood Transfusion Reactions: No Reported Reaction Past Psychological History: Anxiety Smoking Status: Never smoker Past Alcohol Use History: Unable to Obtain, Rare Past Drug Use History: None Reported - Past Family History Mother Family Medical History: Diabetes Mellitus Father Family Medical History: CVA/TIA, Myocardial Infarction ([place]) General Exam - General Exam Comments Initial Comments: GENERAL: Patient is well-developed and well-nourished. Patient is nontoxic and well- hydrated and is in mild distress. ENT: Neck is soft and supple. No significant lymphadenopathy is noted. Oropharynx is clear. Moist mucous membranes. Neck has full range of motion without eliciting any pain. EYES: The sclera were anicteric and conjunctiva were pink and moist. Extraocular movements were intact and pupils were equal round and reactive to light. Eyelids were unremarkable. PULMONARY: Unlabored respirations. Good breath sounds bilaterally. No audible rales rhonchi or wheezing was noted. CARDIOVASCULAR: There is a regular rate and rhythm without any murmurs gallops or rubs. ABDOMEN: Soft and nontender with normal bowel sounds. SKIN: Skin is clear with no lesions or rashes and otherwise unremarkable. NEUROLOGIC: Patient is alert and oriented x3. Cranial nerves II through XII are grossly intact. Motor and sensory are also intact. Normal speech, volume and content. Symmetrical smile. MUSCULOSKELETAL: Normal extremities with adequate strength and full range of motion. LYMPHATICS: No significant lymphadenopathy is noted PSYCHIATRIC: Normal psychiatric evaluation. Limitations: no limitations Course Vital Signs 05/18/20 05/18/20 05/18/20 16:00 17:03 18:00 Temperature 99.2 F 98.6 F Pulse Rate 102 H 92 Respiratory 18 18 18 Rate Blood Pressure 144/85 143/77 O2 Sat by Pulse 96 98 98 Oximetry 05/18/20 18:24 Temperature 98.6 F Pulse Rate 92 Respiratory 18 Rate Blood Pressure 143/77 O2 Sat by Pulse 98 Oximetry Medical Decision Making - Medical Decision Making Chest x-ray shows question audible early pneumonia. Patient was started on Decadron emergency department. I reviewed the discharge plan with the patient she was in agreement and stated she would return she had any difficulty breathing or shortness of breath. - Lab Data Lab Results 05/18/20 Range/Units 17:21 Coronavirus (PCR) Detected A (Not Detectd) Disposition Clinical Impression: Pneumonia due to COVID-19 virus Disposition: HOME SELF-CARE Condition: Good Instructions (If sedation given, give patient instructions): Viral Pneumonia (ED) Prescriptions: Dexamethasone [Decadron] 6 mg PO DAILY 10 Days #10 tablet Is patient prescribed a controlled substance at d/c from ED?: No Referrals: Bina Mancilla DO [Primary Care Provider] - 1-2 days Time of Disposition: 18:10
[2020-05-18] MEDS ORDERED: ACETAMINOPHEN TAB 500 MG TAB PO STA (17:05)
--- NOTE | 2020-05-18 17:58 | XR ---
EXAMINATION TYPE: XR chest 2V DATE OF EXAM: 05/18/2020 COMPARISON: None HISTORY: Difficulty breathing, shortness of breath and fever TECHNIQUE: Frontal and lateral views of the chest are obtained. FINDINGS: There is questionable patchy peripheral opacities, there is no pleural effusion or pneumot horax seen. The cardiac silhouette size is within normal limits. The osseous structures are intact . IMPRESSION: Correlate for possible pneumonia, follow-up as indicated
[2020-05-18] MEDS ORDERED: dexAMETHasone 2 MG TAB PO STA (18:08)
[2020-05-18 18:22] VITALS: BP 143/77; PULSE 92; TEMP 98.6
== END 2020-05-18 18:30 | disposition home or self-care (01) ==
LOC: EC 15:57
DX: U07.1 COVID-19 (principal); J12.89 Other viral pneumonia; Z88.5 Allergy status to narcotic agent
CPT/HCPCS: 87635; 71046; 99284; J8540

== ENCOUNTER 2020-05-23 14:30 | Inpatient (IN) | payer BC ==
[2020-05-23] MEDS ORDERED: KETOROLAC 15 MG/ML 1 ML VIAL IVP STA (15:45)
[2020-05-23] MEDS ORDERED: ACETAMINOPHEN TAB 500 MG TAB PO STA (15:45)
[2020-05-23] MEDS ORDERED: ALBUTEROL HFA INHALER INHALATION STA (15:45)
[2020-05-23] MEDS ORDERED: SODIUM CHLORIDE 0.9% 1,000 ML IV ONE (15:45)
--- NOTE | 2020-05-23 15:48 | ED ---
General Adult HPI - General Chief complaint: Shortness of Breath Stated complaint: Revisit,Covid +,SOB Time Seen by Provider: 05/23/20 15:36 Source: patient, RN notes reviewed, old records reviewed Mode of arrival: wheelchair Limitations: no limitations - History of Present Illness Initial comments: Patient francheska female presents to the emergency department today for evaluation of complaints of fever and body ache shortness of breath. She was diagnosed with low-grade 19 pneumonia on May 18. She reports that she's been having a difficult at home with severe shortness of breath and weakness. Patient states that she has been taking azithromycin and using an inhaler for the past few days without any relief. Patient reports that she was given steroids while she was at the emergency department on May 18. Patient states she's been severely thirsty. She denies nausea or vomiting. - Related Data Home Medications Medication Instructions Recorded Confirmed Acetaminophen Tab [Tylenol Tab] 1,000 mg PO Q6HR PRN 05/18/20 05/23/20 Albuterol Inhaler [Ventolin Hfa 2 puff INHALATION RT-QID PRN 05/23/20 05/23/20 Inhaler] Azithromycin [Zithromax Z-pack (6 See Taper PO DAILY 05/23/20 05/23/20 tabs)] Cholecalciferol (Vitamin D3) 125 mcg PO DAILY 05/23/20 05/23/20 [Vitamin D3] Lysine 500 mg PO BID 05/23/20 05/23/20 Super C 1 tab PO DAILY 05/23/20 05/23/20 Zinc 50 mg PO DAILY 05/23/20 05/23/20 ondansetron HCL [Zofran] 8 mg PO TID PRN 05/23/20 05/23/20 Previous Rx's Medication Instructions Recorded Dexamethasone [Decadron] 6 mg PO DAILY 10 Days #10 tablet 05/18/20 Allergies Allergy/AdvReac Type Severity Reaction Status Date / Time morphine AdvReac Dyspnea/Let Verified 05/23/20 16:26 hargic Review of Systems ROS Statement: Those systems with pertinent positive or pertinent negative responses have been documented in the HPI. ROS Other: All systems not noted in ROS Statement are negative. Past Medical History Past Medical History: Seizure Disorder, Thyroid Disorder Additional Past Medical History / Comment(s): LAST SEIZURE MAY 03, 2018- NO CURRENT SEIZURE MEDS.-follows w/neurologist, HYPOGLYCEMIA, IBS, heavy frequent periods, covid 19 History of Any Multi-Drug Resistant Organisms: None Reported Past Surgical History: Appendectomy, Section, Tubal Ligation Additional Past Surgical History / Comment(s): LASIK eye surgery, D & C Past Anesthesia/Blood Transfusion Reactions: No Reported Reaction Past Psychological History: Anxiety Smoking Status: Never smoker Past Alcohol Use History: Rare Past Drug Use History: None Reported - Past Family History Mother Family Medical History: Diabetes Mellitus Father Family Medical History: CVA/TIA, Myocardial Infarction ([place]) General Exam - General Exam Comments Initial Comments: Ill-appearing 50-year-old female. Moderate discomfort. Limitations: no limitations General appearance: alert, in no apparent distress Head exam: Present: atraumatic, normocephalic, normal inspection Eye exam: Present: normal appearance, PERRL, EOMI. Absent: scleral icterus, conjunctival injection, periorbital swelling ENT exam: Present: normal exam, mucous membranes moist Neck exam: Present: normal inspection. Absent: tenderness, meningismus, lymphadenopathy Respiratory exam: Present: wheezes. Absent: normal lung sounds bilaterally, respiratory distress, rales, rhonchi, stridor Cardiovascular Exam: Present: regular rate, normal rhythm, normal heart sounds. Absent: systolic murmur, diastolic murmur, rubs, gallop, clicks GI/Abdominal exam: Present: soft Extremities exam: Present: normal inspection, full ROM, normal capillary refill. Absent: tenderness, pedal edema, joint swelling, calf tenderness Back exam: Present: normal inspection Neurological exam: Present: alert, oriented X3, CN II-XII intact Psychiatric exam: Present: normal affect, normal mood Skin exam: Present: warm, dry, intact, normal color. Absent: rash Course Vital Signs 05/23/20 15:05 Temperature 99.0 F Pulse Rate 75 Respiratory 18 Rate Blood Pressure 153/86 O2 Sat by Pulse 94 L Oximetry Medical Decision Making - Medical Decision Making 6-year-old female presents emergency room today for reevaluation for worsening shortness of breath wheezing and fatigue. She was diagnosed with a low-grade 19 infection on May 18. Patient at this time and shortness of breath oxygen saturation was 90% on room air. She is placed on 2 L oxygen is now 94%. She labwork obtained. She was found to have high glucose at 698. This would be new onset of diabetes for Patient. She was given a dose of steroid in emergency department on the . Patient reports no prior history of diabetes, which now is likely the dose of steroid induced as well as from recent illness of COVID. She was started on insulin. Patient has been taking azithromycin. Chest x-ray shows increased bilateral pneumonia. Start the Patient on Rocephin. D-dimer is mildly elevated at 0.9. This is for prognostic purposes. was started on Lovenox. I discussed the treatment plan with Dr. Cole and discussed the case with the [facility]. - Lab Data Result diagrams: 05/23/20 16:10 05/23/20 16:10 Lab Results 05/23/20 05/23/20 05/23/20 Range/Units 16:10 16:10 16:10 WBC 10.0 (3.8-10.6) k/uL RBC 5.27 (3.80-5.40) m/uL Hgb 14.4 (11.4-16.0) gm/dL Hct 44.3 (34.0-46.0) % MCV 84.0 (80.0-100.0) fL MCH 27.3 (25.0-35.0) pg MCHC 32.5 (31.0-37.0) g/dL RDW 12.6 (11.5-15.5) % Plt Count 257 (150-450) k/uL MPV 7.5 Neutrophils % 88 % Lymphocytes % 7 % Monocytes % 4 % Eosinophils % 1 % Basophils % 0 % Neutrophils # 8.8 H (1.3-7.7) k/uL Lymphocytes # 0.7 L (1.0-4.8) k/uL Monocytes # 0.3 (0-1.0) k/uL Eosinophils # 0.1 (0-0.7) k/uL Basophils # 0.0 (0-0.2) k/uL PT 9.3 (9.0-12.0) sec INR 0.9 (<1.2) APTT 19.8 L (22.0-30.0) sec D-Dimer 0.90 H (<0.60) mg/L FEU Sodium 128 L (137-145) mmol/L Potassium 5.5 H (3.5-5.1) mmol/L Chloride 94 L (98-107) mmol/L Carbon Dioxide 23 (22-30) mmol/L Anion Gap 11 mmol/L BUN 21 H (7-17) mg/dL Creatinine 0.73 (0.52-1.04) mg/dL Est GFR (CKD-EPI)AfAm >90 (>60 ml/min/1.73 sqM) Est GFR (CKD-EPI)NonAf >90 (>60 ml/min/1.73 sqM) Glucose 649 H* (74-99) mg/dL Plasma Lactic Acid Rony (0.7-2.0) mmol/L Calcium 9.5 (8.4-10.2) mg/dL Magnesium 2.3 (1.6-2.3) mg/dL Total Bilirubin 0.8 (0.2-1.3) mg/dL AST 28 (14-36) U/L ALT 24 (4-34) U/L Alkaline Phosphatase 170 H (38-126) U/L Lactate Dehydrogenase 612 (313-618) U/L C-Reactive Protein 44.4 H (<10.0) mg/L Total Protein 7.6 (6.3-8.2) g/dL Albumin 4.3 (3.5-5.0) g/dL 05/23/20 Range/Units 16:10 WBC (3.8-10.6) k/uL RBC (3.80-5.40) m/uL Hgb (11.4-16.0) gm/dL Hct (34.0-46.0) % MCV (80.0-100.0) fL MCH (25.0-35.0) pg MCHC (31.0-37.0) g/dL RDW (11.5-15.5) % Plt Count (150-450) k/uL MPV Neutrophils % % Lymphocytes % % Monocytes % % Eosinophils % % Basophils % % Neutrophils # (1.3-7.7) k/uL Lymphocytes # (1.0-4.8) k/uL Monocytes # (0-1.0) k/uL Eosinophils # (0-0.7) k/uL Basophils # (0-0.2) k/uL PT (9.0-12.0) sec INR (<1.2) APTT (22.0-30.0) sec D-Dimer (<0.60) mg/L FEU Sodium (137-145) mmol/L Potassium (3.5-5.1) mmol/L Chloride (98-107) mmol/L Carbon Dioxide (22-30) mmol/L Anion Gap mmol/L BUN (7-17) mg/dL Creatinine (0.52-1.04) mg/dL Est GFR (CKD-EPI)AfAm (>60 ml/min/1.73 sqM) Est GFR (CKD-EPI)NonAf (>60 ml/min/1.73 sqM) Glucose (74-99) mg/dL Plasma Lactic Acid Rony 1.6 (0.7-2.0) mmol/L Calcium (8.4-10.2) mg/dL Magnesium (1.6-2.3) mg/dL Total Bilirubin (0.2-1.3) mg/dL AST (14-36) U/L ALT (4-34) U/L Alkaline Phosphatase (38-126) U/L Lactate Dehydrogenase (313-618) U/L C-Reactive Protein (<10.0) mg/L Total Protein (6.3-8.2) g/dL Albumin (3.5-5.0) g/dL - Radiology Data Radiology results: report reviewed Mild bilateral peripheral pneumonias increased compared to recent exam. Disposition Clinical Impression: Newly diagnosed diabetes, COVID-19, Pneumonia due to COVID-19 virus, Hypoxia Disposition: ADMITTED IP TO THIS HOSP Condition: Stable Is patient prescribed a controlled substance at d/c from ED?: No Referrals: Bina Mancilla DO [Primary Care Provider] - 1-2 days Time of Disposition: 17:41
[2020-05-23 16:29] LABS: Basophils % (A) 0 %; Eosinophils # (A) 0.1 k/uL (0-0.7); Eosinophils % (A) 1 %; HCT 44.3 % (34.0-46.0); HGB 14.4 gm/dL (11.4-16.0); Lymphocytes # (A) 0.7 k/uL (1.0-4.8); Lymphocytes % (A) 7 %; MCH 27.3 pg (25.0-35.0); MCHC 32.5 g/dL (31.0-37.0); Mean Platelet Volume 7.5; Monocytes # (A) 0.3 k/uL (0-1.0); Monocytes % (A) 4 %; Neutrophils # (A) 8.8 k/uL (1.3-7.7); Neutrophils % (A) 88 %; Platelet Count 257 k/uL (150-450); RBC 5.27 m/uL (3.80-5.40); RDW 12.6 % (11.5-15.5)
[2020-05-23 16:49] LABS: ALT 24 U/L (4-34); AST 28 U/L (14-36); African American GFR (CKD) >90 (>60 ml/min/1.73 sqM); Albumin 4.3 g/dL (3.5-5.0); Alkaline Phosphatase 170 U/L (38-126); Anion Gap 11 mmol/L; Blood Urea Nitrogen 21 mg/dL (7-17); C Reactive Protein 44.4 mg/L (<10.0); Calcium 9.5 mg/dL (8.4-10.2); Carbon Dioxide 23 mmol/L (22-30); Chloride 94 mmol/L (98-107); LDH 612 U/L (313-618); Magnesium 2.3 mg/dL (1.6-2.3); Non-African American GFR(CKD) >90 (>60 ml/min/1.73 sqM); Potassium 5.5 mmol/L (3.5-5.1); Sodium 128 mmol/L (137-145); Total Bilirubin 0.8 mg/dL (0.2-1.3); Total Protein 7.6 g/dL (6.3-8.2)
--- NOTE | 2020-05-23 16:51 | XR ---
EXAMINATION TYPE: XR chest 1V portable DATE OF EXAM: 05/23/2020 COMPARISON: 05/18/2020 HISTORY: Cough. Short of breath. TECHNIQUE: FINDINGS: There is some mild nodular peripheral infiltrate in the lungs. This is more on the right si de compared to the left. Heart size is normal. There is no heart failure. The bony thorax is intact. Pulmonary vascularity is normal. There are no hilar masses. IMPRESSION: Mild bilateral peripheral pneumonia is increased compared to recent exam.
[2020-05-23 16:53] LABS: INR 0.9 (<1.2); Prothrombin Time 9.3 sec (9.0-12.0)
[2020-05-23 17:02] LABS: D-Dimer 0.9 mg/L FEU (<0.60); Glucose 649 mg/dL (74-99)
[2020-05-23 17:03] LABS: Partial Thromboplastin Time 19.8 sec (22.0-30.0)
[2020-05-23] MEDS ORDERED: INSULIN REGULAR 100 UNIT/ML VIAL IV ONE (17:34)
[2020-05-23] MEDS ORDERED: cefTRIAXone IN SWFI 1,000 MG/10 ML SYRINGE IVP STA (17:35)
[2020-05-23] MEDS ORDERED: ACETAMINOPHEN TAB 500 MG TAB PO PRN (17:41)
[2020-05-23] MEDS ORDERED: cefTRIAXone IN SWFI 1,000 MG/10 ML SYRINGE IVP ONE (17:45)
[2020-05-23] MEDS ORDERED: INSULIN REGULAR BOLUS (FROM DRIP BAG) IV ONE (17:54)
[2020-05-23] MEDS: INSULIN REGULAR 100 UNIT in SODIUM CHLORIDE 0.9% 100 ML IV SCH (19:06)
[2020-05-23 20:38] LABS: Glucose,Whole Blood 409 mg/dL (75-99)
[2020-05-23] MEDS ORDERED: INSULIN ASPART (NovoLOG) 100 UNIT/ML VIAL SQ SCH (21:00)
[2020-05-23 21:25] LABS: Glucose,Whole Blood 362 mg/dL (75-99)
[2020-05-23 22:20] LABS: Glucose,Whole Blood 380 mg/dL (75-99)
[2020-05-23 22:42] LABS: African American GFR (CKD) >90 (>60 ml/min/1.73 sqM); Anion Gap 9 mmol/L; Blood Urea Nitrogen 22 mg/dL (7-17); Calcium 9.3 mg/dL (8.4-10.2); Carbon Dioxide 25 mmol/L (22-30); Chloride 101 mmol/L (98-107); Glucose 359 mg/dL (74-99); Non-African American GFR(CKD) >90 (>60 ml/min/1.73 sqM); Potassium 4.1 mmol/L (3.5-5.1); Sodium 135 mmol/L (137-145)
[2020-05-23 23:27] LABS: Glucose,Whole Blood 363 mg/dL (75-99)
[2020-05-23 23:53] LABS: Ferritin 449.6 ng/mL (10.0-291.0)
[2020-05-24 00:21] LABS: Glucose,Whole Blood 354 mg/dL (75-99)
[2020-05-24 01:26] LABS: Glucose,Whole Blood 310 mg/dL (75-99)
[2020-05-24] MEDS: INSULIN REGULAR 100 UNIT in SODIUM CHLORIDE 0.9% 100 ML IV SCH (02:33)
[2020-05-24 02:43] LABS: Glucose,Whole Blood 256 mg/dL (75-99)
[2020-05-24] MEDS ORDERED: INSULIN NPH 300 UNIT/3 ML VIAL SQ ONE (03:52)
[2020-05-24 03:55] LABS: Glucose,Whole Blood 248 mg/dL (75-99)
[2020-05-24] MEDS ORDERED: INSULIN REGULAR 100 UNIT in SODIUM CHLORIDE 0.9% 100 ML IV SCH (04:15)
[2020-05-24 04:55] LABS: Glucose,Whole Blood 180 mg/dL (75-99)
[2020-05-24 05:41] LABS: Glucose,Whole Blood 135 mg/dL (75-99)
[2020-05-24] MEDS: INSULIN DETEMIR (LEVEMIR) 100 UNIT/ML SYR SQ SCH (06:08)
[2020-05-24 06:51] LABS: Glucose,Whole Blood 108 mg/dL (75-99)
[2020-05-24] MEDS: INSULIN ASPART (NovoLOG) 100 UNIT/ML VIAL SQ SCH ×4 (06:53→20:41)
[2020-05-24 07:51] LABS: Glucose,Whole Blood 142 mg/dL (75-99)
[2020-05-24] MEDS: ENOXAPARIN 40 MG/0.4 ML SYRINGE SQ SCH (08:10)
[2020-05-24 11:56] LABS: Glucose,Whole Blood 463 mg/dL (75-99)
[2020-05-24] MEDS: ZINC SULFATE 220 MG CAP PO SCH (16:34)
[2020-05-24] MEDS: ASCORBIC ACID 500 MG TAB PO SCH (16:34)
[2020-05-24] MEDS: dexAMETHasone 2 MG TAB PO SCH (16:34)
[2020-05-24] MEDS: CHOLECALCIFEROL 1,000 UNIT TAB PO SCH (16:34)
[2020-05-24 17:11] LABS: Glucose,Whole Blood 325 mg/dL (75-99)
--- NOTE | 2020-05-24 18:14 | P.HPIM ---
History of Present Illness H&P Date: 05/24/20 Chief Complaint: Fever, body aches and difficulty in breathing. Ms. Edouard is a 50-year-old female with a past medical history of seizure disorder, thyroid disorder coming to the hospital with a chief complaint of difficulty in breathing myalgias and fevers for the past 3-4 days. Patient was diagnosed with COVID Pneumonia on May 18 and sent home from the emergency department on steroids. Patient states that she has been taking azithromycin and using the inhaler for the past few days without much relief. Her has been diagnosed with Covid 19. Patient complains of nausea but no vomiting. She complains of loss of smell and loss of taste. She was having severe myalgias but currently better in terms of muscle aches. Now she reports it is more of difficulty in breathing that she is dealing with. She denies having any fevers chills or rigors. No chest pain or palpitations. No dysuria or hematuria. In the emergency room, she was found to have a temperature of 99.0 heart rates on her respiratory rate 18, saturating at the 94 on room air with blood pressure 153/86. She had labs done showing white count of 10 hemoglobin 14.4 platelets 257. Sodium 135, Potassium 4.1, chloride 101, bicarbonate 25, the urine 22, creatinine 0.70. Ferritin 449.6, LDH 612, C-reactive protein 44.4, d-dimer 0.90. Chest x-ray showing mild bilateral peripheral pneumonia. Review of Systems REVIEW OF SYSTEMS: PSYCH: Normal psychiatric exam NEURO:No c/o weakness of the extremties, No facial droop, No speech abnormalities. VASCULAR: Peripheral nervous system within the normal limits no edema HEMATOLOGIC: No history of easy bleeding and bruising . 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 No constipation or diarrhea. Past Medical History Past Medical History: Seizure Disorder, Thyroid Disorder Additional Past Medical History / Comment(s): LAST SEIZURE MAY 03, 2018- NO CURRENT SEIZURE MEDS.-follows w/neurologist, HYPOGLYCEMIA, IBS, heavy frequent periods, covid 19 History of Any Multi-Drug Resistant Organisms: None Reported Past Surgical History: Appendectomy, Section, Tubal Ligation Additional Past Surgical History / Comment(s): LASIK eye surgery, D & C Past Anesthesia/Blood Transfusion Reactions: No Reported Reaction Past Psychological History: Anxiety, Depression Smoking Status: Never smoker Past Alcohol Use History: Rare Additional Past Alcohol Use History / Comment(s): started smoking age 17 and quit age 20 smoked 1/2 ppd. Past Drug Use History: None Reported - Past Family History Mother Family Medical History: Dementia, Myocardial Infarction ([place]) Father Family Medical History: CVA/TIA, Myocardial Infarction ([place]) Medications and Allergies Home Medications Medication Instructions Recorded Confirmed Type Acetaminophen Tab [Tylenol Tab] 1,000 mg PO Q6HR PRN 05/18/20 05/23/20 History Dexamethasone [Decadron] 6 mg PO DAILY 10 Days #10 tablet 05/18/20 05/23/20 Rx Albuterol Inhaler [Ventolin Hfa 2 puff INHALATION RT-QID PRN 05/23/20 05/23/20 History Inhaler] Azithromycin [Zithromax Z-pack (6 See Taper PO DAILY 05/23/20 05/23/20 History tabs)] Cholecalciferol (Vitamin D3) 125 mcg PO DAILY 05/23/20 05/23/20 History [Vitamin D3] Lysine 500 mg PO BID 05/23/20 05/23/20 History Super C 1 tab PO DAILY 05/23/20 05/23/20 History Zinc 50 mg PO DAILY 05/23/20 05/23/20 History ondansetron HCL [Zofran] 8 mg PO TID PRN 05/23/20 05/23/20 History Allergies Allergy/AdvReac Type Severity Reaction Status Date / Time morphine AdvReac Dyspnea/Let Verified 05/23/20 16:26 hargic Physical Exam Vitals: Vital Signs Temp Pulse Pulse Resp BP BP Pulse Ox 05/24/20 15:02 97.6 F 71 18 140/72 91 L 05/24/20 12:20 98.6 F 76 18 179/88 93 L 05/24/20 08:10 98.0 F 63 18 160/52 94 L 05/24/20 04:00 97.0 F L 67 18 143/78 94 L 05/24/20 02:00 18 12/06/20 00:00 97.7 F 70 18 140/72 96 05/23/20 21:40 18 05/23/20 21:20 98.0 F 96 18 147/82 96 05/23/20 21:04 72 18 154/89 97 05/23/20 19:09 70 19 156/87 94 L 05/23/20 15:30 24 Intake and Output 05/24/20 05/24/20 05/24/20 06:59 14:59 22:59 Intake Total 618.111 540 Balance 618.111 540 Intake: Intake, IV Titration 78.111 Amount Insulin Regular 100 unit 59.357 In Sodium Chloride 0.9% 100 ml @ 0.1 UNITS/KG/HR 10.308 mls/hr IV .[id number] [facility] Rx#:[id number] Insulin Regular 100 unit 18.754 In Sodium Chloride 0.9% 100 ml @ 0.1 UNITS/KG/HR 10.308 mls/hr IV .[id number] [facility] Rx#:[id number] Oral 540 540 Other: # Voids 2 Weight 95.8 kg 95.8 kg PHYSICAL EXAM GEN. APPEARANCE: alert, in no apparent distress HEAD EXAM: atraumatic, normocephalic, normal inspection EYE EXAM: No pallor. No icterus ENT EXAM: normal exam, mucous membranes moist NECK EXAM: No JVD. No thyromegaly RESPIRATORY EXAM: Bilateral breath sounds are positive. No wheeze or crackles. CARDIOVASCULAR EXAM: S1 and S2 heard. GI/ABDOMINAL EXAM: soft, normal bowel sounds. No guarding or rigidity. EXTREMITIES EXAM: No edema. NEUROLOGICAL EXAM: alert, oriented X3, no focal deficits. PSYCHIATRIC EXAM: normal affect, normal mood SKIN EXAM: No rash Results CBC & Chem 7: 05/23/20 16:10 05/23/20 22:08 Labs: Abnormal Lab Results - Last 24 Hours (Table) 05/23/20 05/23/20 05/23/20 Range/Units 16:10 16:10 16:10 Neutrophils # 8.8 H (1.3-7.7) k/uL Lymphocytes # 0.7 L (1.0-4.8) k/uL APTT 19.8 L (22.0-30.0) sec D-Dimer 0.90 H (<0.60) mg/L FEU Sodium 128 L (137-145) mmol/L Potassium 5.5 H (3.5-5.1) mmol/L Chloride 94 L (98-107) mmol/L BUN 21 H (7-17) mg/dL Glucose 649 H* (74-99) mg/dL POC Glucose (mg/dL) (75-99) mg/dL Ferritin 449.6 H (10.0-291.0) ng/mL Alkaline Phosphatase 170 H (38-126) U/L C-Reactive Protein 44.4 H (<10.0) mg/L 05/23/20 05/23/20 05/23/20 Range/Units 20:37 21:23 22:08 Neutrophils # (1.3-7.7) k/uL Lymphocytes # (1.0-4.8) k/uL APTT (22.0-30.0) sec D-Dimer (<0.60) mg/L FEU Sodium 135 L (137-145) mmol/L Potassium (3.5-5.1) mmol/L Chloride (98-107) mmol/L BUN 22 H (7-17) mg/dL Glucose 359 H (74-99) mg/dL POC Glucose (mg/dL) 409 H 362 H (75-99) mg/dL Ferritin (10.0-291.0) ng/mL Alkaline Phosphatase (38-126) U/L C-Reactive Protein (<10.0) mg/L 05/23/20 05/23/20 05/24/20 Range/Units 22:18 23:21 00:19 Neutrophils # (1.3-7.7) k/uL Lymphocytes # (1.0-4.8) k/uL APTT (22.0-30.0) sec D-Dimer (<0.60) mg/L FEU Sodium (137-145) mmol/L Potassium (3.5-5.1) mmol/L Chloride (98-107) mmol/L BUN (7-17) mg/dL Glucose (74-99) mg/dL POC Glucose (mg/dL) 380 H 363 H 354 H (75-99) mg/dL Ferritin (10.0-291.0) ng/mL Alkaline Phosphatase (38-126) U/L C-Reactive Protein (<10.0) mg/L 05/24/20 05/24/20 05/24/20 Range/Units 01:25 02:42 03:44 Neutrophils # (1.3-7.7) k/uL Lymphocytes # (1.0-4.8) k/uL APTT (22.0-30.0) sec D-Dimer (<0.60) mg/L FEU Sodium (137-145) mmol/L Potassium (3.5-5.1) mmol/L Chloride (98-107) mmol/L BUN (7-17) mg/dL Glucose (74-99) mg/dL POC Glucose (mg/dL) 310 H 256 H 248 H (75-99) mg/dL Ferritin (10.0-291.0) ng/mL Alkaline Phosphatase (38-126) U/L C-Reactive Protein (<10.0) mg/L 05/24/20 05/24/20 05/24/20 Range/Units 04:44 05:38 06:46 Neutrophils # (1.3-7.7) k/uL Lymphocytes # (1.0-4.8) k/uL APTT (22.0-30.0) sec D-Dimer (<0.60) mg/L FEU Sodium (137-145) mmol/L Potassium (3.5-5.1) mmol/L Chloride (98-107) mmol/L BUN (7-17) mg/dL Glucose (74-99) mg/dL POC Glucose (mg/dL) 180 H 135 H 108 H (75-99) mg/dL Ferritin (10.0-291.0) ng/mL Alkaline Phosphatase (38-126) U/L C-Reactive Protein (<10.0) mg/L 05/24/20 05/24/20 Range/Units 07:48 11:50 Neutrophils # (1.3-7.7) k/uL Lymphocytes # (1.0-4.8) k/uL APTT (22.0-30.0) sec D-Dimer (<0.60) mg/L FEU Sodium (137-145) mmol/L Potassium (3.5-5.1) mmol/L Chloride (98-107) mmol/L BUN (7-17) mg/dL Glucose (74-99) mg/dL POC Glucose (mg/dL) 142 H 463 H (75-99) mg/dL Ferritin (10.0-291.0) ng/mL Alkaline Phosphatase (38-126) U/L C-Reactive Protein (<10.0) mg/L Thrombosis Risk Factor Assmnt - Choose All That Apply Any of the Below Risk Factors Present?: No Other Risk Factors: No Other congenital or acquired thrombophilia - If yes, enter type in comment: No Thrombosis Risk Factor Assessment Level: Very Low Risk Assessment and Plan Assessment: ASSESSMENT COVID pneumonia Hyperglycemia Increased inflammatory markers Seizure disorder Thyroid disorder PLAN: Patient received a dose of ceftriaxone in the ED. Patient's blood sugars have been running high 300s to 400s, so will start the patient on 30 units of Levemir at and sliding scale of insulin. Continue with steroids, vitamin aguirre pplements. DVT prophylaxis with Lovenox. Protonix for GI prophylaxis. ID Dr. Cotton and pulmonary Dr. Singletary consulted. Further recommendations to follow depending on the progress of the patient.
[2020-05-24] MEDS: PANTOPRAZOLE 40 MG TABLET PO SCH (19:28)
[2020-05-24 20:24] LABS: Glucose,Whole Blood 456 mg/dL (75-99)
[2020-05-24] MEDS ORDERED: INSULIN ASPART (NovoLOG) 100 UNIT/ML VIAL SQ ONE (20:26)
[2020-05-24 23:21] LABS: Hemoglobin A1C 11.1 % (4.0-6.0)
--- NOTE | 2020-05-25 | P.CNPUL ---
History of Present Illness Consult date: 05/24/20 Reason for consult: dyspnea, cough, hypoxemia, pneumonia Chief complaint: Shortness of breath cough History of present illness: This is a 50-year-old female who has ongoing symptoms of low-grade fever cough patient has been diagnosed with colorectal 19 pneumonia recently, patient has been prescribed Z-Sacha as outpatient without any significant relief she however has been started on steroid, due to persistent short of breath coughing and low- grade temperature came into the hospital, she is afebrile oxygen is 91% on 3 L, chest x-ray showed bilateral infiltrate consistent with: 19 pneumonia Review of Systems All systems: negative Past Medical History Past Medical History: Seizure Disorder, Thyroid Disorder Additional Past Medical History / Comment(s): LAST SEIZURE MAY 03, 2018- NO CURRENT SEIZURE MEDS.-follows w/neurologist, HYPOGLYCEMIA, IBS, heavy frequent periods, covid 19 History of Any Multi-Drug Resistant Organisms: None Reported Past Surgical History: Appendectomy, Section, Tubal Ligation Additional Past Surgical History / Comment(s): LASIK eye surgery, D & C Past Anesthesia/Blood Transfusion Reactions: No Reported Reaction Past Psychological History: Anxiety, Depression Smoking Status: Never smoker Past Alcohol Use History: Rare Additional Past Alcohol Use History / Comment(s): started smoking age 17 and quit age 20 smoked 1/2 ppd. Past Drug Use History: None Reported - Past Family History Mother Family Medical History: Dementia, Myocardial Infarction ([place]) Father Family Medical History: CVA/TIA, Myocardial Infarction ([place]) Medications and Allergies Home Medications Medication Instructions Recorded Confirmed Type Acetaminophen Tab [Tylenol Tab] 1,000 mg PO Q6HR PRN 05/18/20 05/23/20 History Dexamethasone [Decadron] 6 mg PO DAILY 10 Days #10 tablet 05/18/20 05/23/20 Rx Albuterol Inhaler [Ventolin Hfa 2 puff INHALATION RT-QID PRN 05/23/20 05/23/20 History Inhaler] Azithromycin [Zithromax Z-pack (6 See Taper PO DAILY 05/23/20 05/23/20 History tabs)] Cholecalciferol (Vitamin D3) 125 mcg PO DAILY 05/23/20 05/23/20 History [Vitamin D3] Lysine 500 mg PO BID 05/23/20 05/23/20 History Super C 1 tab PO DAILY 05/23/20 05/23/20 History Zinc 50 mg PO DAILY 05/23/20 05/23/20 History ondansetron HCL [Zofran] 8 mg PO TID PRN 05/23/20 05/23/20 History Allergies Allergy/AdvReac Type Severity Reaction Status Date / Time morphine AdvReac Dyspnea/Let Verified 05/23/20 16:26 hargic Physical Exam Vitals: Vital Signs Temp Pulse Resp BP Pulse Ox 05/24/20 23:33 98.0 F 61 18 137/70 98 05/24/20 20:00 97.9 F 68 20 144/80 96 05/24/20 15:02 97.6 F 71 18 140/72 91 L 05/24/20 12:20 98.6 F 76 18 179/88 93 L 05/24/20 08:10 98.0 F 63 18 160/52 94 L 05/24/20 04:00 97.0 F L 67 18 143/78 94 L 05/24/20 02:00 18 05/24/20 00:00 97.7 F 70 18 140/72 96 Intake and Output 05/24/20 05/24/20 05/25/20 14:59 22:59 06:59 Intake Total 540 1650 Balance 540 1650 Intake: IV 210 .9 @ 20 160 cefTRIAXone 2 gm In 50 Sodium Chloride 0.9% 50 ml @ 100 mls/hr IVPB Q24HR [facility] Rx#:[id number] Oral 540 1440 Other: # Voids 2 2 Weight 95.8 kg - Constitutional General appearance: average body habitus, cooperative, disheveled - EENT Eyes: PERRLA Ears: bilateral: normal - Neck Carotids: bilateral: upstroke normal Thyroid: bilateral: normal size - Respiratory Respiratory: bilateral: CTA - Cardiovascular Rhythm: regular Heart sounds: normal: S1, S2 - Gastrointestinal General gastrointestinal: soft - Neurologic Neurologic: CNII-XII intact - Musculoskeletal Musculoskeletal: gait normal, strength equal bilaterally - Psychiatric Psychiatric: A&O x's 3, appropriate affect, intact judgment & insight Results - Laboratory Findings CBC and BMP: 05/23/20 16:10 05/23/20 22:08 PT/INR, D-dimer PT 9.3 sec (9.0-12.0) 05/23/20 16:10 INR 0.9 (<1.2) 05/23/20 16:10 D-Dimer 0.90 mg/L FEU (<0.60) H 05/23/20 16:10 Abnormal lab findings: Abnormal Labs 05/23/20 05/23/20 05/23/20 09:00 16:10 16:10 Neutrophils # 8.8 H Lymphocytes # 0.7 L APTT 19.8 L D-Dimer 0.90 H Sodium Potassium Chloride BUN Glucose POC Glucose (mg/dL) Hemoglobin A1c 11.1 H Ferritin Alkaline Phosphatase C-Reactive Protein 05/23/20 05/23/20 05/23/20 16:10 20:37 21:23 Neutrophils # Lymphocytes # APTT D-Dimer Sodium 128 L Potassium 5.5 H Chloride 94 L BUN 21 H Glucose 649 H* POC Glucose (mg/dL) 409 H 362 H Hemoglobin A1c Ferritin 449.6 H Alkaline Phosphatase 170 H C-Reactive Protein 44.4 H 05/23/20 05/23/20 05/23/20 22:08 22:18 23:21 Neutrophils # Lymphocytes # APTT D-Dimer Sodium 135 L Potassium Chloride BUN 22 H Glucose 359 H POC Glucose (mg/dL) 380 H 363 H Hemoglobin A1c Ferritin Alkaline Phosphatase C-Reactive Protein 05/24/20 05/24/20 05/24/20 00:19 01:25 02:42 Neutrophils # Lymphocytes # APTT D-Dimer Sodium Potassium Chloride BUN Glucose POC Glucose (mg/dL) 354 H 310 H 256 H Hemoglobin A1c Ferritin Alkaline Phosphatase C-Reactive Protein 05/24/20 05/24/20 05/24/20 03:44 04:44 05:38 Neutrophils # Lymphocytes # APTT D-Dimer Sodium Potassium Chloride BUN Glucose POC Glucose (mg/dL) 248 H 180 H 135 H Hemoglobin A1c Ferritin Alkaline Phosphatase C-Reactive Protein 05/24/20 05/24/20 05/24/20 06:46 07:48 11:50 Neutrophils # Lymphocytes # APTT D-Dimer Sodium Potassium Chloride BUN Glucose POC Glucose (mg/dL) 108 H 142 H 463 H Hemoglobin A1c Ferritin Alkaline Phosphatase C-Reactive Protein 05/24/20 05/24/20 16:58 20:14 Neutrophils # Lymphocytes # APTT D-Dimer Sodium Potassium Chloride BUN Glucose POC Glucose (mg/dL) 325 H 456 H Hemoglobin A1c Ferritin Alkaline Phosphatase C-Reactive Protein - Diagnostic Findings Chest x-ray: report reviewed, image reviewed (Finding as noted above) Assessment and Plan Assessment: Covid 19 pneumonia Acute hypoxic respiratory failure History of seizure disorder Plan: Continue oxygen Deep breathing exercise incentive spirometry Prone positioning IV REMesivir for 5 days Decadron Sliding scale insulin Time with Patient: Greater than 30
[2020-05-25] MEDS ORDERED: REMDESIVIR 200 MG in SODIUM CHLORIDE 0.9% 250 ML IVPB ONE (01:00)
[2020-05-25 06:19] LABS: Glucose,Whole Blood 303 mg/dL (75-99)
[2020-05-25] MEDS: INSULIN DETEMIR (LEVEMIR) 100 UNIT/ML SYR SQ SCH (06:33)
[2020-05-25] MEDS: PANTOPRAZOLE 40 MG TABLET PO SCH (06:33)
[2020-05-25] MEDS: INSULIN ASPART (NovoLOG) 100 UNIT/ML VIAL SQ SCH ×5 (06:33→21:07)
[2020-05-25 08:41] LABS: Basophils % (A) 0 %; Eosinophils % (A) 0 %; HCT 40.6 % (34.0-46.0); HGB 13.2 gm/dL (11.4-16.0); Lymphocytes # (A) 1.1 k/uL (1.0-4.8); Lymphocytes % (A) 13 %; MCH 27.4 pg (25.0-35.0); MCHC 32.6 g/dL (31.0-37.0); MCV 84.1 fL (80.0-100.0); Mean Platelet Volume 7.2; Monocytes # (A) 0.3 k/uL (0-1.0); Monocytes % (A) 4 %; Neutrophils # (A) 7.1 k/uL (1.3-7.7); Neutrophils % (A) 83 %; Platelet Count 306 k/uL (150-450); RBC 4.83 m/uL (3.80-5.40); RDW 12.6 % (11.5-15.5); WBC 8.6 k/uL (3.8-10.6)
[2020-05-25 08:54] LABS: African American GFR (CKD) >90 (>60 ml/min/1.73 sqM); Anion Gap 10 mmol/L; Blood Urea Nitrogen 16 mg/dL (7-17); Calcium 9.1 mg/dL (8.4-10.2); Carbon Dioxide 24 mmol/L (22-30); Chloride 102 mmol/L (98-107); Glucose 310 mg/dL (74-99); Non-African American GFR(CKD) >90 (>60 ml/min/1.73 sqM); Potassium 4.4 mmol/L (3.5-5.1); Sodium 136 mmol/L (137-145)
[2020-05-25] MEDS: ASCORBIC ACID 500 MG TAB PO SCH (10:25)
[2020-05-25] MEDS: CHOLECALCIFEROL 1,000 UNIT TAB PO SCH (10:26)
[2020-05-25] MEDS: ZINC SULFATE 220 MG CAP PO SCH (10:26)
[2020-05-25] MEDS: dexAMETHasone 2 MG TAB PO SCH (10:26)
[2020-05-25] MEDS: ENOXAPARIN 40 MG/0.4 ML SYRINGE SQ SCH (10:27)
[2020-05-25 12:15] LABS: Glucose,Whole Blood 313 mg/dL (75-99)
[2020-05-25 12:50] VITALS: BMI 39.5
[2020-05-25] MEDS ORDERED: INSULIN DETEMIR (LEVEMIR) 100 UNIT/ML SYR SQ ONE (13:11)
--- NOTE | 2020-05-25 13:14 | P.PN ---
Subjective Progress Note Date: 05/25/20 This is a 50-year-old female admitted with acute covid pneumonia, new onset diabetes mellitus and multiple other medical issues. Maintained on Rocephin, Remdesevir, Decadron, vitamin C, vitamin D and zinc. Afebrile, maintaining O2 sats in the 90s on 3 L nasal cannula. Complains of exertional shortness of breath. Denies nausea vomiting diarrhea or abdominal pain. Reports she slept well. Objective - Vital Signs Vital signs: Vital Signs Temp 97.7 F 05/25/20 03:55 Pulse 54 L 05/25/20 03:55 Resp 18 05/25/20 03:55 BP 128/64 05/25/20 03:55 Pulse Ox 94 L 05/25/20 03:55 Intake & Output 05/24/20 05/25/20 05/25/20 18:59 06:59 18:59 Intake Total 2190 1000 240 Balance 2190 1000 240 Weight 95.8 kg 98 kg 98 kg Intake: IV 210 .9 @ 20 160 cefTRIAXone 2 gm In 50 Sodium Chloride 0.9% 50 ml @ 100 mls/hr IVPB Q24HR [facility] Rx#:[id number] Oral 1980 1000 240 Other: # Voids 2 1 - Exam PHYSICAL EXAM: VITAL SIGNS: As above GENERAL: Sitting up in bed, no acute distress HEENT: Conjunctivae normal. eyes normal. Oral mucosa moist NECK: No JVD. No thyroid enlargement. No LNs CARDIOVASCULAR: S1, S2 regular.No murmur RESPIRATION: Breath sounds diminished in the bases. No rhonchi or crackles. No bronchial breathing. ABDOMEN: Soft, nontender . No guarding. no masses palpable. No ascites, No hepatosplenomegaly.positive bowel sounds. LEGS: No edema. no swelling PSYCHIATRY: Alert and oriented X3, mood and affect normal. NERVOUS SYSTEM: Cranial N 2-12 grossly normal. Moves all 4 limbs.No focal deficits. Strength and sensation grossly intact.. Skin: Warm and dry, no rash - Labs CBC & Chem 7: 05/25/20 08:14 05/25/20 08:14 Labs: Abnormal Lab Results - Last 24 Hours (Table) 05/23/20 05/24/20 05/24/20 Range/Units 09:00 16:58 20:14 Sodium (137-145) mmol/L Glucose (74-99) mg/dL POC Glucose (mg/dL) 325 H 456 H (75-99) mg/dL Hemoglobin A1c 11.1 H (4.0-6.0) % 05/25/20 05/25/20 05/25/20 Range/Units 06:18 08:14 11:41 Sodium 136 L (137-145) mmol/L Glucose 310 H (74-99) mg/dL POC Glucose (mg/dL) 303 H 313 H (75-99) mg/dL Hemoglobin A1c (4.0-6.0) % Microbiology - Last 24 Hours (Table) 05/23/20 16:10 Blood Culture - Preliminary Blood No Growth after 24 hours Assessment and Plan Assessment: Acute Covid 19 pneumonia Acute hypoxic respiratory failure New-onset diabetes mellitus, hyperglycemic, hemoglobin A1c 11.1 Hypothyroidism History of seizure disorder Anxiety, depression Bipolar Plan: Continue current medication regime ,monitoring and symptomatic treatment. Maintain Covid regimen. Levemir insulin increased, close monitoring of Accu- Cheks .Follow closely with pulmonary and infectious disease. Increase ambulation as tolerated. The impression and plan of care has been dictated as directed. : I performed a history and examination of this patient, discussed the same with the dictator. I agree with the dictator's note ,documented as a scribe. Any additional findings or plans will be noted.
--- NOTE | 2020-05-25 15:42 | P.PN ---
Subjective Progress Note Date: 05/25/20 Principal diagnosis: Covid 19 pneumonia Acute hypoxic respiratory failure History of seizure disorder 05/25/2020, patient seen eval reexamined during the rounds labs reviewed me dications reviewed, respirations slightly better patient is on room air, at 2 L patient noted to have oxygen saturation of 94%, patient is secondary of IV REMdesivir therapy, remains on Decadron, patient advised to be in prone position as much as possible Objective - Vital Signs Vital signs: Vital Signs Temp 97.7 F 05/25/20 03:55 Pulse 54 L 05/25/20 03:55 Resp 18 05/25/20 03:55 BP 128/64 05/25/20 03:55 Pulse Ox 94 L 05/25/20 03:55 Intake & Output 05/24/20 05/25/20 05/25/20 18:59 06:59 18:59 Intake Total 2190 1000 480 Balance 2190 1000 480 Weight 95.8 kg 98 kg 98 kg Intake: IV 210 .9 @ 20 160 cefTRIAXone 2 gm In 50 Sodium Chloride 0.9% 50 ml @ 100 mls/hr IVPB Q24HR [facility] Rx#:[id number] Oral 1980 1000 480 Other: # Voids 2 1 1 - Exam - Constitutional General appearance: average body habitus, cooperative, disheveled - EENT Eyes: PERRLA Ears: bilateral: normal - Neck Carotids: bilateral: upstroke normal Thyroid: bilateral: normal size - Respiratory Respiratory: bilateral: CTA - Cardiovascular Rhythm: regular Heart sounds: normal: S1, S2 - Gastrointestinal General gastrointestinal: soft - Neurologic Neurologic: CNII-XII intact - Musculoskeletal Musculoskeletal: gait normal, strength equal bilaterally - Psychiatric Psychiatric: A&O x's 3, appropriate affect, intact judgment & insight - Labs CBC & Chem 7: 05/25/20 08:14 05/25/20 08:14 Labs: Abnormal Lab Results - Last 24 Hours (Table) 05/23/20 05/24/20 05/24/20 Range/Units 09:00 16:58 20:14 Sodium (137-145) mmol/L Glucose (74-99) mg/dL POC Glucose (mg/dL) 325 H 456 H (75-99) mg/dL Hemoglobin A1c 11.1 H (4.0-6.0) % 05/25/20 05/25/20 05/25/20 Range/Units 06:18 08:14 11:41 Sodium 136 L (137-145) mmol/L Glucose 310 H (74-99) mg/dL POC Glucose (mg/dL) 303 H 313 H (75-99) mg/dL Hemoglobin A1c (4.0-6.0) % Microbiology - Last 24 Hours (Table) 05/23/20 16:10 Blood Culture - Preliminary Blood No Growth after 24 hours Assessment and Plan Assessment: Covid 19 pneumonia Acute hypoxic respiratory failure History of seizure disorder Plan: Continue oxygen, DC if oxygen saturation on room air are more than 90%, Deep breathing exercise incentive spirometry Prone positioning IV REMesivir for 5 days Decadron for 10 days Sliding scale insulin Time with Patient: Greater than 30
[2020-05-25 17:27] LABS: Glucose,Whole Blood 390 mg/dL (75-99)
[2020-05-25 20:18] LABS: Glucose,Whole Blood 397 mg/dL (75-99)
[2020-05-25] MEDS: REMDESIVIR 100 MG in SODIUM CHLORIDE 0.9% 250 ML IVPB SCH (21:08)
--- NOTE | 2020-05-25 22:24 | P.CONS ---
History of Present Illness - Reason for Consult Consult date: 05/25/20 covid 19 Requesting physician: Kassandra Skinner - Chief Complaint Shortness of breath , cough x few days - History of Present Illness Patient is a 50-year-old female presenting to the ER at [facility] on May 23, 2020 for evaluation of fever body aches and shortness of breath and this patient symptom has been going on since May 18, 2020 april nt apparently was previously evaluated and has been treated with Zithromax inhaler for the past few days without any improvement patient complaining of shortness of breath on minimal exertion and even at rest patient denies having any chest pain she did have a cough mild to moderate intensity when it became sputum no nausea no vomiting no abdominal pain no diarrhea with the symptom the patient was evaluated by ER physician on arrival to the ER the patient did have low-grade fever of 94 9 patient was satting in 4% on room air currently 95% 2 L nasal cannula patient did have a normal white count and lymphopenia elevated D- dimer patient did have elevated ferritin CRP procalcitonin was normal patient did have a chest x-ray mild bilateral peripheral pneumonia patient has been admitted to the hospital patient was started on Rocephin 2 g daily Lovenox remdesivir zinc and dexamethasone infectious disease was consulted for further management. Review of Systems Positive point has been mentioned in HPI rest of the systems are negative. Past Medical History Past Medical History: Seizure Disorder, Thyroid Disorder Additional Past Medical History / Comment(s): LAST SEIZURE MAY 03, 2018- NO CURRENT SEIZURE MEDS.-follows w/neurologist, HYPOGLYCEMIA, IBS, heavy frequent periods, covid 19 History of Any Multi-Drug Resistant Organisms: None Reported Past Surgical History: Appendectomy, Section, Tubal Ligation Additional Past Surgical History / Comment(s): LASIK eye surgery, D & C Past Anesthesia/Blood Transfusion Reactions: No Reported Reaction Past Psychological History: Anxiety, Depression Smoking Status: Never smoker Past Alcohol Use History: Rare Additional Past Alcohol Use History / Comment(s): started smoking age 17 and quit age 20 smoked 1/2 ppd. Past Drug Use History: None Reported - Past Family History Mother Family Medical History: Dementia, Myocardial Infarction ([place]) Father Family Medical History: CVA/TIA, Myocardial Infarction ([place]) Medications and Allergies Home Medications Medication Instructions Recorded Confirmed Type Acetaminophen Tab [Tylenol Tab] 1,000 mg PO Q6HR PRN 05/18/20 05/23/20 History Dexamethasone [Decadron] 6 mg PO DAILY 10 Days #10 tablet 05/18/20 05/23/20 Rx Albuterol Inhaler [Ventolin Hfa 2 puff INHALATION RT-QID PRN 05/23/20 05/23/20 History Inhaler] Azithromycin [Zithromax Z-pack (6 See Taper PO DAILY 05/23/20 05/23/20 History tabs)] Cholecalciferol (Vitamin D3) 125 mcg PO DAILY 05/23/20 05/23/20 History [Vitamin D3] Lysine 500 mg PO BID 05/23/20 05/23/20 History Super C 1 tab PO DAILY 05/23/20 05/23/20 History Zinc 50 mg PO DAILY 05/23/20 05/23/20 History ondansetron HCL [Zofran] 8 mg PO TID PRN 05/23/20 05/23/20 History Allergies Allergy/AdvReac Type Severity Reaction Status Date / Time morphine AdvReac Dyspnea/Let Verified 05/23/20 16:26 hargic Physical Exam Vitals: Vital Signs Temp Pulse Resp BP Pulse Ox 05/25/20 03:55 97.7 F 54 L 18 128/64 94 L 05/24/20 23:33 98.0 F 61 18 137/70 98 05/24/20 20:00 97.9 F 68 20 144/80 96 Intake and Output 05/25/20 05/25/20 05/25/20 06:59 14:59 22:59 Intake Total 1000 480 Balance 1000 480 Intake: Oral 1000 480 Other: # Voids 1 1 1 Weight 98 kg 98 kg GENERAL DESCRIPTION: Middle-aged female lying in bed, no distress. No tachypnea or accessory muscle of respiration use. HEENT: Shows Pallor , no scleral icterus. Oral mucous membrane is dry. NECK: Trachea central, no thyromegaly. LUNGS: Unlabored breathing. Decrease intensity of breath sounds. No wheeze or crackle. HEART: S1, S2, regular rate and rhythm. ABDOMEN: Soft, no tenderness , guarding or rigidity EXTREMITIES: No edema of feet. SKIN: No rash, no masses palpable. NEUROLOGICAL: The patient is awake, alert, oriented x3, mood and affect normal. Results CBC & Chem 7: 12/07/20 08:14 05/25/20 08:14 Labs: Abnormal Lab Results - Last 24 Hours (Table) 05/23/20 05/24/20 05/24/20 Range/Units 09:00 16:58 20:14 Sodium (137-145) mmol/L Glucose (74-99) mg/dL POC Glucose (mg/dL) 325 H 456 H (75-99) mg/dL Hemoglobin A1c 11.1 H (4.0-6.0) % 05/25/20 05/25/20 05/25/20 Range/Units 06:18 08:14 11:41 Sodium 136 L (137-145) mmol/L Glucose 310 H (74-99) mg/dL POC Glucose (mg/dL) 303 H 313 H (75-99) mg/dL Hemoglobin A1c (4.0-6.0) % Microbiology - Last 24 Hours (Table) 05/23/20 16:10 Blood Culture - Preliminary Blood No Growth after 24 hours Assessment and Plan Assessment: patient presented to hospital with increasing shortness of breath cough and this patient has been diagnosed with COVID-19 pneumonia failing outpatient steroid Zithromax with evidence of worsening pneumonia presented hospital hypoxemia clinically doubt secondary bacterial pneumonia as pt has normal procalcitonin (1) Pneumonia due to COVID-19 virus Current Visit: Yes Status: Acute Code(s): U07.1 - COVID-19; J12.89 - OTHER VIRAL PNEUMONIA SNOMED Code(s): 691960628095842302 Plan: 1-patient will be continued on remdesivir 100 milligrams daily x4 more doses, to finish a 5-day course of therapy 2-dexamethasone 6 mg daily along with Lovenox and zinc sulfate 3-droplet isolation and respiratory support 4-discontinue Rocephin as no evidence of secondary bacterial pneumonia We will follow on clinical condition and cultures to further adjust medication if needed Thank you for this consultation we will follow the patient along with you Time with Patient: Greater than 30
[2020-05-26] MEDS ORDERED: INSULIN DETEMIR (LEVEMIR) 100 UNIT/ML SYR SQ SCH (07:00)
[2020-05-26 07:05] LABS: Glucose,Whole Blood 281 mg/dL (75-99)
[2020-05-26] MEDS: INSULIN ASPART (NovoLOG) 100 UNIT/ML VIAL SQ SCH ×7 (07:07→21:21)
[2020-05-26] MEDS: PANTOPRAZOLE 40 MG TABLET PO SCH (07:08)
[2020-05-26] MEDS: ALBUTEROL HFA INHALER INHALATION PRN ×2 (07:30→11:00)
[2020-05-26] MEDS: dexAMETHasone 2 MG TAB PO SCH (10:11)
[2020-05-26] MEDS: ZINC SULFATE 220 MG CAP PO SCH (10:11)
[2020-05-26] MEDS: CHOLECALCIFEROL 1,000 UNIT TAB PO SCH (10:11)
[2020-05-26] MEDS: ENOXAPARIN 40 MG/0.4 ML SYRINGE SQ SCH (10:12)
[2020-05-26] MEDS: ASCORBIC ACID 500 MG TAB PO SCH (10:12)
--- NOTE | 2020-05-26 11:08 | P.PN ---
Subjective Progress Note Date: 05/26/20 Principal diagnosis: Covid 19 pneumonia Acute hypoxic respiratory failure History of seizure disorder 05/26/2020, patient seen and evaluated examined during the rounds labs reviewed medications reviewed respiratory status remains stable patient sitting upright in the chair breathing comfortably, off of oxygen, the duration is 95% room air, patient is tolerating therapy well, 05/25/2020, patient seen eval reexamined during the rounds labs reviewed medications reviewed, respirations slightly better patient is on room air, at 2 L patient noted to have oxygen saturation of 94%, patient is secondary of IV REMdesivir therapy, remains on Decadron, patient advised to be in prone position as much as possible Objective - Vital Signs Vital signs: Vital Signs Temp 98.1 F 05/26/20 04:00 Pulse 59 L 05/26/20 04:00 Resp 18 05/26/20 04:00 BP 139/80 05/26/20 04:00 Pulse Ox 95 05/26/20 04:00 Intake & Output 05/25/20 05/26/20 05/26/20 18:59 06:59 18:59 Intake Total 720 480 240 Balance 720 480 240 Weight 98 kg 96 kg Intake: Oral 720 480 240 Other: # Voids 1 1 - Exam - Constitutional General appearance: average body habitus, cooperative, disheveled - EENT Eyes: PERRLA Ears: bilateral: normal - Neck Carotids: bilateral: upstroke normal Thyroid: bilateral: normal size - Respiratory Respiratory: bilateral: CTA - Cardiovascular Rhythm: regular Heart sounds: normal: S1, S2 - Gastrointestinal General gastrointestinal: soft - Neurologic Neurologic: CNII-XII intact - Musculoskeletal Musculoskeletal: gait normal, strength equal bilaterally - Psychiatric Psychiatric: A&O x's 3, appropriate affect, intact judgment & insight - Labs CBC & Chem 7: 05/25/20 08:14 05/25/20 08:14 Labs: Abnormal Lab Results - Last 24 Hours (Table) 05/25/20 05/25/20 05/25/20 Range/Units 11:41 17:05 20:16 POC Glucose (mg/dL) 313 H 390 H 397 H (75-99) mg/dL 05/26/20 Range/Units 07:01 POC Glucose (mg/dL) 281 H (75-99) mg/dL Microbiology - Last 24 Hours (Table) 05/23/20 16:10 Blood Culture - Preliminary Blood No Growth after 48 hours Assessment and Plan Assessment: Covid 19 pneumonia Acute hypoxic respiratory failure History of seizure disorder Plan: Continue oxygen, DC if oxygen saturation on room air are more than 90%, and monitor off of oxygen Deep breathing exercise incentive spirometry Prone positioning IV REMesivir for 5 days Decadron for 10 days Sliding scale insulin Time with Patient: Greater than 30
[2020-05-26 12:10] LABS: Glucose,Whole Blood 288 mg/dL (75-99)
[2020-05-26] MEDS ORDERED: INSULIN DETEMIR (LEVEMIR) 100 UNIT/ML SYR SQ ONE ×2 (13:37→17:30)
--- NOTE | 2020-05-26 13:58 | P.PN ---
Subjective Progress Note Date: 05/26/20 This is a 50-year-old female admitted with acute covid pneumonia, new onset diabetes mellitus and multiple other medical issues. Maintained on Rocephin, Remdesevir, Decadron, vitamin C, vitamin D and zinc. Afebrile, maintaining O2 sats in the 90s on 3 L nasal cannula. Complains of exertional shortness of breath. Denies nausea vomiting diarrhea or abdominal pain. Reports she slept well. 05/26/2020 significant clinical improvement. continues on Covid regimen including Remdesevir. Maintaining O2 sat in the 90s on room air. Levemir initiated yesterday, hyperglycemic, blood sugars currently 288. Objective - Vital Signs Vital signs: Vital Signs Temp 97.6 F 05/26/20 12:25 Pulse 69 05/26/20 12:25 Resp 18 05/26/20 12:25 BP 141/76 05/26/20 12:25 Pulse Ox 93 L 05/26/20 12:25 Intake & Output 05/25/20 05/26/20 05/26/20 18:59 06:59 18:59 Intake Total 720 480 480 Balance 720 480 480 Weight 98 kg 96 kg Intake: Oral 720 480 480 Other: # Voids 1 1 1 - Exam PHYSICAL EXAM: VITAL SIGNS: As above GENERAL: Sitting up in chair, no acute distress HEENT: Conjunctivae normal. eyes normal. Oral mucosa moist NECK: No JVD. No thyroid enlargement. No LNs CARDIOVASCULAR: S1, S2 regular.No murmur RESPIRATION: Breath sounds diminished in the bases. No rhonchi or crackles. ABDOMEN: Soft, nontender . No guarding. no masses palpable. No ascites, No hepatosplenomegaly.positive bowel sounds. LEGS: No edema. no swelling PSYCHIATRY: Alert and oriented X3, mood and affect normal. NERVOUS SYSTEM: Cranial N 2-12 grossly normal. Moves all 4 limbs.No focal deficits. Strength and sensation grossly intact. Skin: Warm and dry, no rash - Labs CBC & Chem 7: 05/25/20 08:14 05/25/20 08:14 Labs: Abnormal Lab Results - Last 24 Hours (Table) 05/25/20 05/25/20 05/26/20 Range/Units 17:05 20:16 07:01 POC Glucose (mg/dL) 390 H 397 H 281 H (75-99) mg/dL 05/26/20 Range/Units 11:49 POC Glucose (mg/dL) 288 H (75-99) mg/dL Microbiology - Last 24 Hours (Table) 05/23/20 16:10 Blood Culture - Preliminary Blood No Growth after 48 hours Assessment and Plan Assessment: Acute Covid 19 pneumonia, failed outpatient treatment Acute hypoxic respiratory failure New-onset diabetes mellitus, hyperglycemic, hemoglobin A1c 11.1 Hypothyroidism History of seizure disorder Anxiety, depression Bipolar Plan: Continue current medication regime ,monitoring and symptomatic treatment. Levemir insulin further increased, close monitoring of Accu-Cheks . Diabetic education with outpatient diabetic education classes at PCPs office. Continue Covid regimen.Increase ambulation as tolerated. The impression and plan of care has been dictated as directed. : I performed a history and examination of this patient, discussed the same with the dictator. I agree with the dictator's note ,documented as a scribe. Any additional findings or plans will be noted.
[2020-05-26 17:01] LABS: Glucose,Whole Blood 444 mg/dL (75-99)
[2020-05-26 20:11] LABS: Glucose,Whole Blood 421 mg/dL (75-99)
[2020-05-26] MEDS: REMDESIVIR 100 MG in SODIUM CHLORIDE 0.9% 250 ML IVPB SCH (21:21)
--- NOTE | 2020-05-26 23:10 | PN ---
PROGRESS NOTE DATE OF SERVICE: 05/26/2020 REASON FOR FOLLOWUP: Acute COVID-19 pneumonia. INTERVAL HISTORY: The patient is currently afebrile. The patient is feeling much better. She is breathing comfortably. The patient denies having any chest pain or shortness of breath. Minimal cough. No nausea, no vomiting. No abdominal pain or diarrhea. PHYSICAL EXAMINATION: Blood pressure 143/83 with a pulse of 73, temperature 97.3. She is 95% on room air. General description is a middle-aged female lying in bed in no distress. RESPIRATORY SYSTEM: Unlabored breathing with decreased intensity of breath sounds. No wheeze. HEART: S1, S2. Regular rate and rhythm. ABDOMEN: Soft. No tenderness. LABS: No new labs have been obtained today. DIAGNOSTIC IMPRESSION AND PLAN: Patient with acute COVID-19 pneumonia in this patient with an overall clinical response to remdesivir; to continue along with dexamethasone, Lovenox and respiratory support. Monitor clinical course closely. Continue with supportive care. MMODL / IJN: [id number] /
[2020-05-27 06:49] LABS: Glucose,Whole Blood 243 mg/dL (75-99)
[2020-05-27] MEDS ORDERED: INSULIN DETEMIR (LEVEMIR) 100 UNIT/ML SYR SQ SCH (07:00)
[2020-05-27] MEDS: INSULIN DETEMIR (LEVEMIR) 100 UNIT/ML SYR SQ SCH (07:10)
[2020-05-27] MEDS: PANTOPRAZOLE 40 MG TABLET PO SCH (07:10)
[2020-05-27] MEDS: INSULIN ASPART (NovoLOG) 100 UNIT/ML VIAL SQ SCH ×7 (07:10→22:07)
[2020-05-27] MEDS: CHOLECALCIFEROL 1,000 UNIT TAB PO SCH (08:42)
[2020-05-27] MEDS: dexAMETHasone 2 MG TAB PO SCH (08:42)
[2020-05-27] MEDS: ASCORBIC ACID 500 MG TAB PO SCH (08:42)
[2020-05-27] MEDS: ENOXAPARIN 40 MG/0.4 ML SYRINGE SQ SCH (08:43)
[2020-05-27] MEDS: ZINC SULFATE 220 MG CAP PO SCH (08:43)
[2020-05-27] MEDS ORDERED: dexAMETHasone 4 MG TAB PO SCH (09:30)
[2020-05-27 11:57] LABS: Glucose,Whole Blood 316 mg/dL (75-99)
--- NOTE | 2020-05-27 14:42 | P.PN ---
Subjective Progress Note Date: 05/27/20 This is a 50-year-old female admitted with acute covid pneumonia, new onset diabetes mellitus and multiple other medical issues. Maintained on Rocephin, Remdesevir, Decadron, vitamin C, vitamin D and zinc. Afebrile, maintaining O2 sats in the 90s on 3 L nasal cannula. Complains of exertional shortness of breath. Denies nausea vomiting diarrhea or abdominal pain. Reports she slept well. 05/26/2020 significant clinical improvement. continues on Covid regimen including Remdesevir. Maintaining O2 sat in the 90s on room air. Levemir initiated yesterday, hyperglycemic, blood sugars currently 288. 05/27/2020 significant clinical improvement on Remdesevir, Decadron. Anticoagulated on Lovenox. Reports minimal cough. Denies nausea, vomiting or diarrhea. No abdominal pain. Denies chest pain, palpitations or increased shortness of breath. Hyperglycemic. Afebrile. Objective - Vital Signs Vital signs: Vital Signs Temp 98.4 F 05/27/20 04:00 Pulse 59 L 05/27/20 04:00 Resp 17 05/27/20 04:00 BP 139/83 05/27/20 04:00 Pulse Ox 95 05/27/20 04:00 Intake & Output 05/26/20 05/27/20 05/27/20 18:59 06:59 18:59 Intake Total 720 250 Balance 720 250 Weight 94.5 kg Intake: IV 250 .9 @ 20 250 Oral 720 Other: Voiding Method Toilet # Voids 1 - Exam PHYSICAL EXAM: VITAL SIGNS: As above GENERAL: Sitting up in chair, no acute distress HEENT: Conjunctivae normal. eyes normal. Oral mucosa moist NECK: No JVD. No thyroid enlargement. No LNs CARDIOVASCULAR: S1, S2 regular.No murmur RESPIRATION: Breath sounds essentially clear, diminished in the bases. ABDOMEN: Soft, nontender . No guarding. no masses palpable. positive bowel sounds. LEGS: No edema. no swelling PSYCHIATRY: Alert and oriented X3, mood and affect normal. NERVOUS SYSTEM: Cranial N 2-12 grossly normal. Moves all 4 limbs.No focal deficits. Strength and sensation grossly intact. Skin: Warm and dry, no rash Microbiology 05/23/20 16:10 Blood Blood Culture - Preliminary No Growth after 72 hours - Labs CBC & Chem 7: 05/25/20 08:14 05/25/20 08:14 Labs: Abnormal Lab Results - Last 24 Hours (Table) 05/26/20 05/26/20 05/26/20 Range/Units 11:49 16:52 20:11 POC Glucose (mg/dL) 288 H 444 H 421 H (75-99) mg/dL 05/27/20 Range/Units 06:48 POC Glucose (mg/dL) 243 H (75-99) mg/dL Microbiology - Last 24 Hours (Table) 05/23/20 16:10 Blood Culture - Preliminary Blood No Growth after 72 hours Assessment and Plan Assessment: Acute Covid 19 pneumonia, failed outpatient treatment Acute hypoxic respiratory failure New-onset diabetes mellitus, hyperglycemic, hemoglobin A1c 11.1 Hypothyroidism History of seizure disorder Anxiety, depression Bipolar Plan: Continue current medication regime ,monitoring and symptomatic treatment. Decadron dose decreased, Levemir insulin further increased, close monitoring of Accu-Cheks . Maintain Covid regimen-Last Dose of Remdesevir tomorrow . Discharge planning in progress for tomorrow after Remdesevir completed. The impression and plan of care has been dictated as directed. : I performed a history and examination of this patient, discussed the same with the dictator. I agree with the dictator's note ,documented as a scribe. Any additional findings or plans will be noted.
--- NOTE | 2020-05-27 15:31 | P.PN ---
Subjective Progress Note Date: 05/27/20 Principal diagnosis: Covid 19 pneumonia Acute hypoxic respiratory failure History of seizure disorder 06/06/2020, patient seen eval examined during the rounds labs reviewed medi cations reviewed setting upright on the chair breathing comfortably denies any chest pain, patient remains on room air, respiratory status stable, agree with discharge planning after last day of therapy with REMdesivir 05/26/2020, patient seen and evaluated examined during the rounds labs reviewed medications reviewed respiratory status remains stable patient sitting upright in the chair breathing comfortably, off of oxygen, the duration is 95% room air, patient is tolerating therapy well, 05/25/2020, patient seen eval reexamined during the rounds labs reviewed medications reviewed, respirations slightly better patient is on room air, at 2 L patient noted to have oxygen saturation of 94%, patient is secondary of IV REMdesivir therapy, remains on Decadron, patient advised to be in prone position as much as possible Objective - Vital Signs Vital signs: Vital Signs Temp 97.7 F 05/27/20 08:00 Pulse 80 05/27/20 12:00 Resp 14 05/27/20 14:00 BP 121/66 05/27/20 12:00 Pulse Ox 94 L 05/27/20 12:00 Intake & Output 05/26/20 05/27/20 05/27/20 18:59 06:59 18:59 Intake Total 720 250 Balance 720 250 Weight 94.5 kg Intake: IV 250 .9 @ 20 250 Oral 720 Other: Voiding Method Toilet # Voids 1 - Exam - Constitutional General appearance: average body habitus, cooperative, disheveled - EENT Eyes: PERRLA Ears: bilateral: normal - Neck Carotids: bilateral: upstroke normal Thyroid: bilateral: normal size - Respiratory Respiratory: bilateral: CTA - Cardiovascular Rhythm: regular Heart sounds: normal: S1, S2 - Gastrointestinal General gastrointestinal: soft - Neurologic Neurologic: CNII-XII intact - Musculoskeletal Musculoskeletal: gait normal, strength equal bilaterally - Psychiatric Psychiatric: A&O x's 3, appropriate affect, intact judgment & insight - Labs CBC & Chem 7: 05/25/20 08:14 05/25/20 08:14 Labs: Abnormal Lab Results - Last 24 Hours (Table) 05/26/20 05/26/20 05/27/20 Range/Units 16:52 20:11 06:48 POC Glucose (mg/dL) 444 H 421 H 243 H (75-99) mg/dL 05/27/20 Range/Units 11:44 POC Glucose (mg/dL) 316 H (75-99) mg/dL Microbiology - Last 24 Hours (Table) 05/23/20 16:10 Blood Culture - Preliminary Blood No Growth after 72 hours Assessment and Plan Assessment: Covid 19 pneumonia Acute hypoxic respiratory failure History of seizure disorder Plan: Continue to monitor off of oxygen Deep breathing exercise incentive spirometry Prone positioning IV REMesivir for 5 days Decadron for 10 days Sliding scale insulin Can discharge home from pulmonary standpoint after finishing IV therapy Time with Patient: Greater than 30
[2020-05-27 17:18] LABS: Glucose,Whole Blood 334 mg/dL (75-99)
[2020-05-27 20:16] LABS: Glucose,Whole Blood 382 mg/dL (75-99)
[2020-05-27] MEDS: REMDESIVIR 100 MG in SODIUM CHLORIDE 0.9% 250 ML IVPB SCH (23:14)
--- NOTE | 2020-05-27 23:23 | PN ---
PROGRESS NOTE DATE OF SERVICE: 05/27/2020 REASON FOR FOLLOWUP: Acute COVID-19 infection. INTERVAL HISTORY: The patient is currently afebrile. The patient is breathing comfortably on room air. The patient denies having any chest pain or shortness of breath. Minimal cough. No nausea. No vomiting. No abdominal pain or diarrhea. PHYSICAL EXAMINATION: Blood pressure 132/74 with a pulse of 75, temperature 98.9. She is 96% on room air. General description is a middle-aged female up in the bed in no distress. RESPIRATORY SYSTEM: Unlabored breathing with decreased intensity of breath sounds. No wheeze. HEART: S1, S2. Regular rate and rhythm. ABDOMEN: Soft. No tenderness. LABS: No new labs have been obtained today. DIAGNOSTIC IMPRESSION AND PLAN: Patient with acute COVID-19 pneumonia in this patient with overall clinical improvement on the dexamethasone, Lovenox and remdesivir; to continue along with respiratory support, and monitor clinical course closely. MMODL / IJN: [id number] /
[2020-05-28 07:03] LABS: African American GFR (CKD) >90 (>60 ml/min/1.73 sqM); Anion Gap 7 mmol/L; Blood Urea Nitrogen 16 mg/dL (7-17); Carbon Dioxide 26 mmol/L (22-30); Chloride 102 mmol/L (98-107); Glucose 264 mg/dL (74-99); Non-African American GFR(CKD) >90 (>60 ml/min/1.73 sqM); Potassium 3.9 mmol/L (3.5-5.1); Sodium 135 mmol/L (137-145)
[2020-05-28 07:18] LABS: Glucose,Whole Blood 222 mg/dL (75-99)
[2020-05-28] MEDS: ENOXAPARIN 40 MG/0.4 ML SYRINGE SQ SCH (08:02)
[2020-05-28] MEDS: INSULIN ASPART (NovoLOG) 100 UNIT/ML VIAL SQ SCH ×7 (08:03→21:00)
[2020-05-28] MEDS: INSULIN DETEMIR (LEVEMIR) 100 UNIT/ML SYR SQ SCH (08:03)
[2020-05-28] MEDS: ASCORBIC ACID 500 MG TAB PO SCH (08:03)
[2020-05-28] MEDS: PANTOPRAZOLE 40 MG TABLET PO SCH (08:03)
[2020-05-28] MEDS: CHOLECALCIFEROL 1,000 UNIT TAB PO SCH (08:03)
[2020-05-28] MEDS: ZINC SULFATE 220 MG CAP PO SCH (08:04)
[2020-05-28] MEDS: dexAMETHasone 4 MG TAB PO SCH (08:04)
[2020-05-28 11:39] LABS: Glucose,Whole Blood 277 mg/dL (75-99)
--- NOTE | 2020-05-28 11:39 | P.PN ---
Subjective Progress Note Date: 05/28/20 Principal diagnosis: Covid 19 pneumonia Acute hypoxic respiratory failure History of seizure disorder 05/28/2020, patient seen eval examined during the rounds labs reviewed medi cations reviewed care plan discussed, patient remains unaware sitting upright on the bed breathing comfortably no chest pain is present, finish therapy with antivirals remains on Decadron which can be finished at home agree with discharge planning 05/27/2020, patient seen eval examined during the rounds labs reviewed medications reviewed setting upright on the chair breathing comfortably denies any chest pain, patient remains on room air, respiratory status stable, agree with discharge planning after last day of therapy with REMdesivir 05/26/2020, patient seen and evaluated examined during the rounds labs reviewed medications reviewed respiratory status remains stable patient sitting upright in the chair breathing comfortably, off of oxygen, the duration is 95% room air, patient is tolerating therapy well, 05/25/2020, patient seen eval reexamined during the rounds labs reviewed medicat ions reviewed, respirations slightly better patient is on room air, at 2 L patient noted to have oxygen saturation of 94%, patient is secondary of IV REMdesivir therapy, remains on Decadron, patient advised to be in prone position as much as possible Objective - Vital Signs Vital signs: Vital Signs Temp 97.9 F 05/28/20 11:12 Pulse 69 05/28/20 11:12 Resp 16 05/28/20 11:12 BP 151/84 05/28/20 11:12 Pulse Ox 95 05/28/20 11:12 Intake & Output 05/27/20 05/28/20 05/28/20 18:59 06:59 18:59 Intake Total 990 Balance 990 Intake: Intake, IV Titration 250 Amount Remdesivir 100 mg In 250 Sodium Chloride 0.9% 250 ml @ 250 mls/hr IVPB HS [facility] Rx#:[id number] Oral 740 Other: Voiding Method Toilet # Voids 1 - Exam - Constitutional General appearance: average body habitus, cooperative, disheveled - EENT Eyes: PERRLA Ears: bilateral: normal - Neck Carotids: bilateral: upstroke normal Thyroid: bilateral: normal size - Respiratory Respiratory: bilateral: CTA - Cardiovascular Rhythm: regular Heart sounds: normal: S1, S2 - Gastrointestinal General gastrointestinal: soft - Neurologic Neurologic: CNII-XII intact - Musculoskeletal Musculoskeletal: gait normal, strength equal bilaterally - Psychiatric Psychiatric: A&O x's 3, appropriate affect, intact judgment & insight - Labs CBC & Chem 7: 05/25/20 08:14 05/28/20 05:42 Labs: Abnormal Lab Results - Last 24 Hours (Table) 05/27/20 05/27/20 05/27/20 Range/Units 11:44 17:15 20:13 Sodium (137-145) mmol/L Glucose (74-99) mg/dL POC Glucose (mg/dL) 316 H 334 H 382 H (75-99) mg/dL 05/28/20 05/28/20 Range/Units 05:42 06:58 Sodium 135 L (137-145) mmol/L Glucose 264 H (74-99) mg/dL POC Glucose (mg/dL) 222 H (75-99) mg/dL Microbiology - Last 24 Hours (Table) 05/23/20 16:10 Blood Culture - Preliminary Blood No Growth after 96 hours Assessment and Plan Assessment: Covid 19 pneumonia Acute hypoxic respiratory failure History of seizure disorder Plan: Continue to monitor off of oxygen Deep breathing exercise incentive spirometry Prone positioning IV REMesivir for 5 days Decadron for 10 days Sliding scale insulin Can discharge home from pulmonary standpoint after finishing IV therapy Time with Patient: Greater than 30
--- NOTE | 2020-05-28 13:43 | P.PN ---
Subjective Progress Note Date: 05/28/20 HISTORY OF PRESENT ILLNESS Patient is a 50-year-old female presenting to the ER at [facility] on May 23, 2020 for evaluation of fever body aches and shortness of breath and this patient symptom has been going on since May 18, 2020. Patient was diagnosed with acute coving 19 infection and started on Remdesivir along with dexamethasone him on Lovenox and supplements. Today, patient will complete course of Remdesivir. Patient has not required oxygen therapy and his pulse ox is 95% on room air. She has been afebrile. Patient denies having shortness of breath or cough. She denies abdominal pain, nausea vomiting or diarrhea. PHYSICAL EXAMINATION GENERAL DESCRIPTION: 50-year-old female, sitting in chair, no distress. No tachypnea or accessory muscle of respiration use. HEENT: Shows Pallor , no scleral icterus. Oral mucous membrane is dry. NECK: Trachea central, no thyromegaly. LUNGS: Unlabored breathing. Decrease intensity of breath sounds. No wheeze or crackle. HEART: S1, S2, regular rate and rhythm. ABDOMEN: Soft, no tenderness , guarding or rigidity EXTREMITIES: No edema of feet. SKIN: No rash, no masses palpable. NEUROLOGICAL: The patient is awake, alert, oriented x3, mood and affect normal. ASSESSMENT Acute coving 19 infection PLAN Continue Remdesivir day #5 Continue zinc, vitamin C, vitamin D, dexamethasone 4 mg oral daily, Lovenox 40 mg subcu daily Patient is cleared for discharge from infectious disease. The above dictated assessment and findings were discussed with Dr. Cotton. The impression and plan of care have been directed as dictated. Sissy Ryan nurse practitioner acting as scribe for Dr. Cotton. Objective - Vital Signs Vital signs: Vital Signs Temp 97.9 F 05/28/20 11:12 Pulse 69 05/28/20 11:12 Resp 16 05/28/20 11:12 BP 151/84 05/28/20 11:12 Pulse Ox 95 05/28/20 11:12 Intake & Output 05/27/20 05/28/20 05/28/20 18:59 06:59 18:59 Intake Total 990 Balance 990 Intake: Intake, IV Titration 250 Amount Remdesivir 100 mg In 250 Sodium Chloride 0.9% 250 ml @ 250 mls/hr IVPB HS [facility] Rx#:[id number] Oral 740 Other: Voiding Method Toilet # Voids 1 - Labs CBC & Chem 7: 05/25/20 08:14 05/28/20 05:42 Labs: Abnormal Lab Results - Last 24 Hours (Table) 05/27/20 05/27/20 05/28/20 Range/Units 17:15 20:13 05:42 Sodium 135 L (137-145) mmol/L Glucose 264 H (74-99) mg/dL POC Glucose (mg/dL) 334 H 382 H (75-99) mg/dL 05/28/20 05/28/20 Range/Units 06:58 11:14 Sodium (137-145) mmol/L Glucose (74-99) mg/dL POC Glucose (mg/dL) 222 H 277 H (75-99) mg/dL Microbiology - Last 24 Hours (Table) 05/23/20 16:10 Blood Culture - Preliminary Blood No Growth after 96 hours
--- NOTE | 2020-05-28 14:31 | P.PN ---
<Laura Najera - Last Filed: 05/28/20 14:18> Subjective Progress Note Date: 05/28/20 This is a 50-year-old female admitted with acute covid pneumonia, new onset diabetes mellitus and multiple other medical issues. Maintained on Rocephin, Remdesevir, Decadron, vitamin C, vitamin D and zinc. Afebrile, maintaining O2 s ats in the 90s on 3 L nasal cannula. Complains of exertional shortness of breath. Denies nausea vomiting diarrhea or abdominal pain. Reports she slept well. 05/26/2020 significant clinical improvement. continues on Covid regimen including Remdesevir. Maintaining O2 sat in the 90s on room air. Levemir initiated yesterday, hyperglycemic, blood sugars currently 288. 05/27/2020 significant clinical improvement on Remdesevir, Decadron. Anticoagulated on Lovenox. Reports minimal cough. Denies nausea, vomiting or diarrhea. No abdominal pain. Denies chest pain, palpitations or increased s hortness of breath. Hyperglycemic. Afebrile. 05/28/2020 We are covering for Dr. Robson Littlejohn Patient is seen and evaluated in follow-up with no acute overnight issues. Patient is to receive her last dose of Remdesivir this evening and will be maintained on dexamethasone along with Lovenox, zinc, vitamin C and D supplements. She is currently saturating at 95% on room air denies any worseni ng shortness of breath, chest pain, or palpitations. Patient blood sugars continue to be elevated although is currently maintained on sliding scale along with 6 units of pre-meal insulin, and 45 units of Levemir daily and will continue at this time. Case management following and will discuss with them on discharge planning needs to ensure patient has glucometer and testing supplies. She'll need close outpatient following with her primary care provider and close monitoring of blood sugars. Review of systems: Constitutional: No reports of fatigue, fever, or chills Cardiovascular: No reports of chest pain or palpitations Respiratory: No reports of shortness of breath or cough GI: No reports of nausea, vomiting, or diarrhea : No reports of dysuria or retention Neurovascular: No reports of weakness or numbness All medications have been reviewed Objective - Vital Signs Vital signs: Vital Signs Temp 97.9 F 05/28/20 11:12 Pulse 69 05/28/20 11:12 Resp 16 05/28/20 11:12 BP 151/84 05/28/20 11:12 Pulse Ox 95 05/28/20 11:12 Intake & Output 05/27/20 05/28/20 05/28/20 18:59 06:59 18:59 Intake Total 990 240 Balance 990 240 Intake: Intake, IV Titration 250 Amount Remdesivir 100 mg In 250 Sodium Chloride 0.9% 250 ml @ 250 mls/hr IVPB HS [facility] Rx#:[id number] Oral 740 240 Other: Voiding Method Toilet # Voids 1 - Exam Gen: This is a 50-year-old female awake, alert and oriented 3, well-developed, well-nourished. Currently sitting up in the chair in no acute distress HEENT: Head is atraumatic, normocephalic. Pupils equal, round. Sclerae is anicteric. NECK: Supple. No JVD. No lymphadenopathy. No thyromegaly. LUNGS: Diminished breath sounds bilaterally with no wheezes or rhonchi. No intercostal retractions. HEART: Regular rate and rhythm. No murmur. ABDOMEN: Soft. Obese. Bowel sounds are present. No masses. No tenderness. EXTREMITIES: No pedal edema. No calf tenderness. NEUROLOGICAL: Patient is awake, alert and oriented x3. Cranial nerves 2 through 12 are grossly intact. - Labs CBC & Chem 7: 05/25/20 08:14 05/28/20 05:42 Labs: Abnormal Lab Results - Last 24 Hours (Table) 05/27/20 05/27/20 05/28/20 Range/Units 17:15 20:13 05:42 Sodium 135 L (137-145) mmol/L Glucose 264 H (74-99) mg/dL POC Glucose (mg/dL) 334 H 382 H (75-99) mg/dL 05/28/20 05/28/20 Range/Units 06:58 11:14 Sodium (137-145) mmol/L Glucose (74-99) mg/dL POC Glucose (mg/dL) 222 H 277 H (75-99) mg/dL Microbiology - Last 24 Hours (Table) 05/23/20 16:10 Blood Culture - Preliminary Blood No Growth after 96 hours Assessment and Plan Assessment: Acute Covid 19 pneumonia, failed outpatient treatment Acute hypoxic respiratory failure New-onset diabetes mellitus, hyperglycemic, hemoglobin A1c 11.1 Hypothyroidism History of seizure disorder Anxiety, depression Bipolar DVT prophylaxis: Lovenox GI prophylaxis: Protonix Plan: Continue current medications. Continue to monitor closely. Patient is currently on room air at 95% with no reports of increasing shortness of breath. Patient is maintained on Remdesivir and is to receive her last dose tonight. Patient is also maintained on dexamethasone 4 mg along with Lovenox, zinc, vitamin C and E supplements and will continue at this time. Will continue to monitor blood sugars before meals at bedtime ,monitoring and symptomatic anderson atment. Decadron dose decreased, Levemir insulin further increased, close monitoring of Accu-Cheks as they have been elevated. Will discuss with case management to ensure patient has diabetic testing supplies and glucometer for discharge. Will continue with current medication regimen. Further re commendations to follow. Possible discharge in 24 hours based on clinical status. <Sheet,Clinton E - Last Filed: 05/28/20 23:05> Subjective I have discussed the plan and I have reviewed the notes with PHYSICAL THERAPY SUPERVISOR Laura and I agree with it except was mentioned below Patient is seen and examined by me at bedside Patient told me she knows how to inject herself with insulin and she has been tried it Objective - Vital Signs Vital signs: Vital Signs Temp 97.9 F 05/28/20 17:00 Pulse 76 05/28/20 17:00 Resp 17 05/28/20 17:00 BP 141/91 05/28/20 17:00 Pulse Ox 96 05/28/20 17:00 Intake & Output 05/28/20 05/28/20 05/29/20 06:59 18:59 06:59 Intake Total 990 240 Balance 990 240 Intake: Intake, IV Titration 250 Amount Remdesivir 100 mg In 250 Sodium Chloride 0.9% 250 ml @ 250 mls/hr IVPB HS [facility] Rx#:[id number] Oral 740 240 Other: Voiding Method Toilet # Voids 1 4 - Labs CBC & Chem 7: 05/25/20 08:14 05/28/20 05:42 Labs: Abnormal Lab Results - Last 24 Hours (Table) 05/28/20 05/28/20 05/28/20 Range/Units 05:42 06:58 11:14 Sodium 135 L (137-145) mmol/L Glucose 264 H (74-99) mg/dL POC Glucose (mg/dL) 222 H 277 H (75-99) mg/dL 05/28/20 05/28/20 Range/Units 16:56 20:49 Sodium (137-145) mmol/L Glucose (74-99) mg/dL POC Glucose (mg/dL) 307 H 288 H (75-99) mg/dL Microbiology - Last 24 Hours (Table) 05/23/20 16:10 Blood Culture - Preliminary Blood No Growth after 120 hours
[2020-05-28 16:58] LABS: Glucose,Whole Blood 307 mg/dL (75-99)
[2020-05-28 20:51] LABS: Glucose,Whole Blood 288 mg/dL (75-99)
[2020-05-28] MEDS: REMDESIVIR 100 MG in SODIUM CHLORIDE 0.9% 250 ML IVPB SCH (21:00)
[2020-05-29 04:54] VITALS: RESP 18
[2020-05-29 07:25] LABS: Glucose,Whole Blood 264 mg/dL (75-99)
[2020-05-29] MEDS: ENOXAPARIN 40 MG/0.4 ML SYRINGE SQ SCH (08:03)
[2020-05-29] MEDS: INSULIN ASPART (NovoLOG) 100 UNIT/ML VIAL SQ SCH ×4 (08:03→12:43)
[2020-05-29] MEDS: ZINC SULFATE 220 MG CAP PO SCH (08:04)
[2020-05-29] MEDS: CHOLECALCIFEROL 1,000 UNIT TAB PO SCH (08:04)
[2020-05-29] MEDS: ASCORBIC ACID 500 MG TAB PO SCH (08:04)
[2020-05-29] MEDS: INSULIN DETEMIR (LEVEMIR) 100 UNIT/ML SYR SQ SCH (08:04)
[2020-05-29] MEDS: dexAMETHasone 4 MG TAB PO SCH (08:04)
[2020-05-29] MEDS: PANTOPRAZOLE 40 MG TABLET PO SCH (08:04)
[2020-05-29 11:08] VITALS: BP 138/94; PULSE 87; TEMP 97.8
[2020-05-29 11:39] LABS: Glucose,Whole Blood 197 mg/dL (75-99)
--- NOTE | 2020-05-29 13:08 | P.DS ---
Providers Date of admission: 05/23/20 18:05 Expected date of discharge: 05/29/20 Attending physician: Robson Littlejohn MD Consults: 05/23/20 17:54 Consult Physician Stat Consulting Provider: Jakub Singletary Consult Reason/Comments: covid, pneumonia Do you want consulting provider notified?: Yes 05/24/20 16:36 Consult Physician Routine Consulting Provider: Rhea Cotton Consult Reason/Comments: covid pneumonia Do you want consulting provider notified?: Yes Primary care physician: Robson Littlejohn MD Hospital Course: Final diagnosis Acute Covid 19 pneumonia, failed outpatient treatment Acute hypoxic respiratory failure New-onset diabetes mellitus, hyperglycemic, hemoglobin A1c 11.1 Hypothyroidism History of seizure disorder Anxiety, depression Bipolar DVT prophylaxis GI prophylaxis Discharge disposition Patient is being discharged in a stable condition with guarded prognosis to home. Patient will follow-up with Dr. Mancilla upon discharge. Patient will continue with a short course of dexamethasone 4 mg daily for the next 4 days to complete the course. Patient will also continue on a zinc, vitamin C and D in the outpatient setting. Patient was provided with a glucometer and testing supplies and has an appointment scheduled for this week with primary care provider. Total time taken is 35 minutes. History of present illness This is an 50-year-old female who was recently admitted with acute Covid pneumonia along with new onset diabetes mellitus and was being closely monitored. Infectious disease was following. Patient was treated with Remdesivir, Rocephin, Decadron, vitamin C and D, and zinc along with Lovenox. Patient will continue with dexamethasone 4 mg in the outpatient setting for the next 4 days to complete the course. Patient continued to have elevated blood sugars and was initiated on sliding scale along with pre-meal insulin and long- acting and will continue sliding scale, 6 units 3 times daily with meals of aspart, and 45 units of long-acting Levemir daily. Patient instructed and educated on monitoring blood sugars before meals at bedtime in keeping a diary her primary care follow-up that is scheduled this week. Patient has been giving herself injections to become more familiar with insulin administration and feels comfortable with doing so. Patient also instructed to continue to quarantine at least 7-10 days and until symptom-free for at least 3 days and primary care follow-up. Currently no reports of chest pain, shortness of breath, or palpitations. Patient is afebrile. No reports of nausea or vomiting and patie nt is tolerating diet. Patient instructed to continue with the diabetic heart healthy diet and consistent carbs. Patient provided with diabetes education and meal planning. Patient will be discharged home today. On exam vital signs are stable. Temp is 97.8F, pulse is 77, respirations are 20, blood pressure is 139/84, oxygen saturation is 97% on room air. Cardio S1, S2 are muffled. Respiratory shows diminished breath sounds at the bases with no rhonchi noted. Abdomen is soft and nontender. Nervous system shows no focal deficits. Please refer to medication reconciliation sheet for a list of medications. Patient Condition at Discharge: Stable Plan - Discharge Summary Discharge Rx Participant: No New Discharge Prescriptions: New dexAMETHasone [Hexadrol] 4 mg PO DAILY 4 Days #4 tab Insulin Detemir (Levemir) [Levemir] 45 unit SQ DAILY@0700 30 Days #3 syr INSULIN ASPART (NovoLOG) [NovoLOG (formulary)] 6 unit SQ AC-TID 30 Days #3 vial INSULIN ASPART (NovoLOG) [NovoLOG (formulary)] 0 unit SQ ACHS 30 Days #3 vial Zinc Sulfate [Orazinc] 220 mg PO DAILY 30 Days #30 cap Pantoprazole [Protonix] 40 mg PO AC-BRKFST 30 Days #30 tablet. Albuterol Inhaler [Ventolin Hfa Inhaler] 2 puff INHALATION RT-Q6H PRN puff PRN Reason: Shortness Of Breath Or Wheezing Ascorbic Acid [Vitamin C] 1,000 mg PO DAILY 30 Days #30 tab Cholecalciferol [Vitamin D3 (25 Mcg = 1000 Iu)] 1,000 unit PO DAILY 30 Days #30 tab Continue Acetaminophen Tab [Tylenol] 1,000 mg PO Q6HR PRN PRN Reason: Pain Or Fever > 100.5 Lysine 500 mg PO BID ondansetron HCL [Zofran] 8 mg PO TID PRN PRN Reason: Nausea Cholecalciferol (Vitamin D3) [Vitamin D3] 125 mcg PO DAILY Albuterol Inhaler [Ventolin Hfa Inhaler] 2 puff INHALATION RT-QID PRN 30 Days #1 puff PRN Reason: Shortness Of Breath Discontinued Dexamethasone [Decadron] 6 mg PO DAILY 10 Days #10 tablet Zinc 50 mg PO DAILY Super C 1 tab PO DAILY Azithromycin [Zithromax Z-pack (6 tabs)] See Taper PO DAILY Discharge Medication List Acetaminophen Tab [Tylenol] 1,000 mg PO Q6HR PRN 05/18/20 [History] Cholecalciferol (Vitamin D3) [Vitamin D3] 125 mcg PO DAILY 05/23/20 [History] Lysine 500 mg PO BID 05/23/20 [History] ondansetron HCL [Zofran] 8 mg PO TID PRN 05/23/20 [History] Albuterol Inhaler [Ventolin Hfa Inhaler] 2 puff INHALATION RT-Q6H PRN puff 05/29/20 [Rx] Albuterol Inhaler [Ventolin Hfa Inhaler] 2 puff INHALATION RT-QID PRN 30 Days #1 puff 05/29/20 [Rx] Ascorbic Acid [Vitamin C] 1,000 mg PO DAILY 30 Days #30 tab 05/29/20 [Rx] Cholecalciferol [Vitamin D3 (25 Mcg = 1000 Iu)] 1,000 unit PO DAILY 30 Days #30 tab 05/29/20 [Rx] INSULIN ASPART (NovoLOG) [NovoLOG (formulary)] 0 unit SQ ACHS 30 Days #3 vial 05/29/20 [Rx] INSULIN ASPART (NovoLOG) [NovoLOG (formulary)] 6 unit SQ AC-TID 30 Days #3 vial 05/29/20 [Rx] Insulin Detemir (Levemir) [Levemir] 45 unit SQ DAILY@0700 30 Days #3 syr 05/29/20 [Rx] Pantoprazole [Protonix] 40 mg PO AC-BRKFST 30 Days #30 tablet.dr 05/29/20 [Rx] Zinc Sulfate [Orazinc] 220 mg PO DAILY 30 Days #30 cap 05/29/20 [Rx] dexAMETHasone [Hexadrol] 4 mg PO DAILY 4 Days #4 tab 05/29/20 [Rx] Follow up Appointment(s)/Referral(s): Robson Littlejohn MD [Primary Care Provider] - 06/01/20 9:00 am Patient Instructions/Handouts: Viral Pneumonia (DC), Type 2 Diabetes in Adults: New Diagnosis (DC), What is Insulin (DC), How to Give an Insulin Injection (DC), Basic Carbohydrate Counting (DC), Meal Planning with the Plate Method (DC), Hypoxia (ED), Diabetic Hyperglycemia (DC), How to Check your Blood Sugar (DC) Activity/Diet/Wound Care/Special Instructions: Glucometer and testing supplies are at [facility] pharmacy and will need to be picked up at discharge. Cost is $54.52 Activity is limited until follow-up Follow-up with primary care provider as scheduled Continue to monitor blood sugars before meals at bedtime and keep a diary of blood sugar readings for primary care follow-up Continue current heart healthy diabetic diet Continue with dexamethasone 4 mg daily for the next 4 days to complete the course Continue to quarantine for an additional 7-10 days and until symptom-free for at least 3 days and follow-up with primary care provider Encourage fluids and rest Discharge Disposition: HOME SELF-CARE
--- NOTE | 2020-05-29 15:13 | P.PN ---
Subjective Progress Note Date: 05/29/20 HISTORY OF PRESENT ILLNESS Patient is a 50-year-old female presenting to the ER at [facility] on May 23, 2020 for evaluation of fever body aches and shortness of breath and this patient symptom has been going on since May 18, 2020. Patient was diagnosed with acute coving 19 infection and started on Remdesivir along with dexamethasone him on Lovenox and supplements. Today, patient will complete course of Remdesivir. Patient has not required oxygen therapy and his pulse ox is 95% on room air. She has been afebrile. Patient denies having shortness of breath or cough. She denies abdominal pain, nausea vomiting or diarrhea. 05/29: Patient is found sitting in a chair at the bedside. She denies having any shortness of breath cough, fever or chills. She denies abdominal pain, nausea vomiting or diarrhea. She has been afebrile, pulse ox 97% on room air. PHYSICAL EXAMINATION GENERAL DESCRIPTION: 50-year-old female, sitting in chair, no distress. HEENT: Shows Pallor , no scleral icterus. Oral mucous membrane is dry. NECK: Trachea central, no thyromegaly. LUNGS: Unlabored breathing. Decrease intensity of breath sounds. No wheeze or crackle. HEART: S1, S2, regular rate and rhythm. ABDOMEN: Soft, no tenderness , guarding or rigidity EXTREMITIES: No edema of feet. SKIN: No rash, no masses palpable. NEUROLOGICAL: The patient is awake, alert, oriented x3, mood and affect normal. ASSESSMENT Acute coving 19 infection PLAN Completed course of Remdesivir Continue zinc, vitamin C, vitamin D, dexamethasone 4 mg oral daily, Lovenox 40 mg subcu daily Patient is cleared for discharge from infectious disease. The above dictated assessment and findings were discussed with Dr. Cotton. The impression and plan of care have been directed as dictated. Sissy Ryan nurse practitioner acting as scribe for Dr. Cotton. Objective - Vital Signs Vital signs: Vital Signs Temp 97.8 F 05/29/20 11:00 Pulse 87 05/29/20 11:00 Resp 18 05/29/20 11:00 BP 138/94 05/29/20 11:00 Pulse Ox 97 05/29/20 11:00 Intake & Output 05/28/20 05/29/20 05/29/20 18:59 06:59 18:59 Intake Total 240 750 240 Balance 240 750 240 Intake: Intake, IV Titration 250 Amount Remdesivir 100 mg In 250 Sodium Chloride 0.9% 250 ml @ 250 mls/hr IVPB HS [facility]CO ANTONIO Rx#:[id number] Oral 240 500 240 Other: Voiding Method Toilet # Voids 4 2 - Labs CBC & Chem 7: 05/25/20 08:14 05/28/20 05:42 Labs: Abnormal Lab Results - Last 24 Hours (Table) 05/28/20 05/28/20 05/29/20 Range/Units 16:56 20:49 07:14 POC Glucose (mg/dL) 307 H 288 H 264 H (75-99) mg/dL 05/29/20 Range/Units 11:28 POC Glucose (mg/dL) 197 H (75-99) mg/dL Microbiology - Last 24 Hours (Table) 05/23/20 16:10 Blood Culture - Preliminary Blood No Growth after 120 hours
--- NOTE | 2020-05-29 15:55 | P.PN ---
Subjective Progress Note Date: 05/29/20 Principal diagnosis: Covid 19 pneumonia Acute hypoxic respiratory failure History of seizure disorder 05/29/2020, patient seen eval examined during the rounds labs reviewed medi cations reviewed care plan discussed with the primary service patient is being planned for discharge today, respiratory status stable, oxygen saturation room air is 95-96%, patient has finished IV therapy, will be switched to oral Decadron to finish an outpatient along with supplements for zinc vitamin D also on anticoagulation 05/28/2020, patient seen eval examined during the rounds labs reviewed medications reviewed care plan discussed, patient remains unaware sitting upright on the bed breathing comfortably no chest pain is present, finish therapy with antivirals remains on Decadron which can be finished at home agree with discharge planning 05/27/2020, patient seen eval examined during the rounds labs reviewed medications reviewed setting upright on the chair breathing comfortably denies any chest pain, patient remains on room air, respiratory status stable, agree with discharge planning after last day of therapy with REMdesivir 05/26/2020, patient seen and evaluated examined during the rounds labs reviewed medications reviewed respiratory status remains stable patient sitting upright in the chair breathing comfortably, off of oxygen, the duration is 95% room air, patient is tolerating therapy well, 05/25/2020, patient seen eval reexamined during the rounds labs reviewed medications reviewed, respirations slightly better patient is on room air, at 2 L patient noted to have oxygen saturation of 94%, patient is secondary of IV REMdesivir therapy, remains on Decadron, patient advised to be in prone position as much as possible Objective - Vital Signs Vital signs: Vital Signs Temp 97.8 F 05/29/20 11:00 Pulse 87 05/29/20 11:00 Resp 18 05/29/20 11:00 BP 138/94 05/29/20 11:00 Pulse Ox 97 05/29/20 11:00 Intake & Output 05/28/20 05/29/20 05/29/20 18:59 06:59 18:59 Intake Total 240 750 480 Balance 240 750 480 Intake: Intake, IV Titration 250 Amount Remdesivir 100 mg In 250 Sodium Chloride 0.9% 250 ml @ 250 mls/hr IVPB HS MARCO ANTONIO Rx#:[id number] Oral 240 500 480 Other: Voiding Method Toilet # Voids 4 2 - Exam - Constitutional General appearance: average body habitus, cooperative, disheveled - EENT Eyes: PERRLA Ears: bilateral: normal - Neck Carotids: bilateral: upstroke normal Thyroid: bilateral: normal size - Respiratory Respiratory: bilateral: CTA - Cardiovascular Rhythm: regular Heart sounds: normal: S1, S2 - Gastrointestinal General gastrointestinal: soft - Neurologic Neurologic: CNII-XII intact - Musculoskeletal Musculoskeletal: gait normal, strength equal bilaterally - Psychiatric Psychiatric: A&O x's 3, appropriate affect, intact judgment & insight - Labs CBC & Chem 7: 05/25/20 08:14 05/28/20 05:42 Labs: Abnormal Lab Results - Last 24 Hours (Table) 05/28/20 05/28/20 05/29/20 Range/Units 16:56 20:49 07:14 POC Glucose (mg/dL) 307 H 288 H 264 H (75-99) mg/dL 05/29/20 Range/Units 11:28 POC Glucose (mg/dL) 197 H (75-99) mg/dL Microbiology - Last 24 Hours (Table) 05/23/20 16:10 Blood Culture - Preliminary Blood No Growth after 120 hours Assessment and Plan Assessment: Covid 19 pneumonia Acute hypoxic respiratory failure History of seizure disorder Plan: Continue to monitor off of oxygen Deep breathing exercise incentive spirometry Prone positioning IV REMesivir for 5 days Decadron for 10 days Sliding scale insulin Can discharge home from pulmonary standpoint after finishing IV therapy Time with Patient: Greater than 30
== END 2020-05-29 13:04 | disposition home or self-care (01) | DRG 177 ==
LOC: EC 14:30 → 3SCARD 18:05 → 6NMEDSUR 05-27 23:07
PROVIDERS: ADMIT Family Medicine; ATTEND Family Medicine
PROC: XW033E5 Introduction of Remdesivir Anti-infective into Peripheral Vein, Percutaneous Approach, New Technology Group 5 (ICD-10-PCS; principal; 2020-05-23)
DX: U07.1 COVID-19 (principal); J12.89 Other viral pneumonia; J96.01 Acute respiratory failure with hypoxia; T38.0X5A Adverse effect of glucocorticoids and synthetic analogues, initial encounter; F41.9 Anxiety disorder, unspecified; F32.9 Major depressive disorder, single episode, unspecified; E03.9 Hypothyroidism, unspecified; D72.810 Lymphocytopenia; E11.65 Type 2 diabetes mellitus with hyperglycemia; G40.909 Epilepsy, unspecified, not intractable, without status epilepticus; K58.9 Irritable bowel syndrome, unspecified; Z83.3 Family history of diabetes mellitus; Z82.49 Family history of ischemic heart disease and other diseases of the circulatory system; Z87.891 Personal history of nicotine dependence; Z88.5 Allergy status to narcotic agent; Z90.49 Acquired absence of other specified parts of digestive tract; Z98.891 History of uterine scar from previous surgery; Z98.51 Tubal ligation status; Z82.3 Family history of stroke; Z79.899 Other long term (current) drug therapy
CPT/HCPCS: 36415; 71045; 80048; 80053; 82728; 83036; 83605; 83615; 83735; 84145; 85025; 85379; 85610; 85730; 86140; 87040; 93005; 94640; 94760; 96361; 96374; 96375; 99285

== ENCOUNTER 2020-08-10 04:45 | Emergency (ER) | payer BC ==
[2020-08-10 04:54] VITALS: RESP 16
--- NOTE | 2020-08-10 05:12 | ED ---
Abdominal Pain HPI - General Chief Complaint: Abdominal Pain Stated Complaint: Lower ABD Pain Time Seen by Provider: 08/10/20 04:59 Source: patient Mode of arrival: ambulatory Limitations: no limitations - History of Present Illness MD Complaint: abdominal pain -: week(s) Location: LLQ Radiation: none Migration to: no migration Severity: moderate Quality: dull Consistency: constant, colicky Improves With: nothing Worsens With: nothing Associated Symptoms: constipation - Related Data LMP (females 10-50): other (Hysterectomy) Patient : No Home Medications Medication Instructions Recorded Confirmed Acetaminophen Tab [Tylenol] 1,000 mg PO Q6HR PRN 05/18/20 05/23/20 Cholecalciferol (Vitamin D3) 125 mcg PO DAILY 05/23/20 05/23/20 [Vitamin D3 (5000 Iu)] Lysine 500 mg PO BID 05/23/20 05/23/20 ondansetron HCL [Zofran] 8 mg PO TID PRN 05/23/20 05/23/20 Previous Rx's Medication Instructions Recorded Albuterol Inhaler [Ventolin Hfa 2 puff INHALATION RT-Q6H PRN puff 05/29/20 Inhaler] Albuterol Inhaler [Ventolin Hfa 2 puff INHALATION RT-QID PRN 30 05/29/20 Inhaler] Days #1 puff Ascorbic Acid [Vitamin C] 1,000 mg PO DAILY 30 Days #30 tab 05/29/20 Cholecalciferol [Vitamin D3 (25 1,000 unit PO DAILY 30 Days #30 tab 05/29/20 Mcg = 1000 Iu)] INSULIN ASPART (NovoLOG) [NovoLOG 0 unit SQ ACHS 30 Days #3 vial 05/29/20 (formulary)] INSULIN ASPART (NovoLOG) [NovoLOG 6 unit SQ AC-TID 30 Days #3 vial 05/29/20 (formulary)] Insulin Detemir (Levemir) [Levemir] 45 unit SQ DAILY@0700 30 Days #3 05/29/20 syr Pantoprazole [Protonix] 40 mg PO AC-BRKFST 30 Days #30 05/29/20 tablet. Zinc Sulfate [Orazinc] 220 mg PO DAILY 30 Days #30 cap 05/29/20 dexAMETHasone [Hexadrol] 4 mg PO DAILY 4 Days #4 tab 05/29/20 Allergies Allergy/AdvReac Type Severity Reaction Status Date / Time morphine AdvReac Dyspnea/Let Verified 08/10/20 04:51 hargic Review of Systems ROS Statement: Those systems with pertinent positive or pertinent negative responses have been documented in the HPI. ROS Other: All systems not noted in ROS Statement are negative. Constitutional: Denies: fever, chills, weakness Respiratory: Denies: cough, dyspnea Cardiovascular: Denies: chest pain, palpitations, edema Gastrointestinal: Reports: as per HPI, abdominal pain, nausea, constipation. Denies: vomiting, diarrhea, melena, hematochezia Genitourinary: Denies: dysuria, hematuria Musculoskeletal: Denies: back pain Skin: Denies: rash Neurological: Denies: headache, weakness Past Medical History Past Medical History: Diabetes Mellitus, Seizure Disorder, Thyroid Disorder Additional Past Medical History / Comment(s): LAST SEIZURE MAY 03, 2018- NO CURRENT SEIZURE MEDS.-follows w/neurologist, HYPOGLYCEMIA, IBS, covid 19 History of Any Multi-Drug Resistant Organisms: None Reported Past Surgical History: Appendectomy, Section, Hysterectomy, Tubal Ligation Additional Past Surgical History / Comment(s): LASIK eye surgery, D & C Past Anesthesia/Blood Transfusion Reactions: No Reported Reaction Past Psychological History: Anxiety, Depression Smoking Status: Never smoker Past Alcohol Use History: Rare Past Drug Use History: None Reported - Past Family History Mother Family Medical History: Dementia, Myocardial Infarction ([place]) Father Family Medical History: CVA/TIA, Myocardial Infarction ([place]) General Exam Limitations: no limitations General appearance: alert, in no apparent distress Head exam: Present: atraumatic, normocephalic Eye exam: Present: normal appearance. Absent: scleral icterus, conjunctival injection ENT exam: Present: normal oropharynx Respiratory exam: Present: normal lung sounds bilaterally. Absent: respiratory distress, wheezes, rales, rhonchi, stridor Cardiovascular Exam: Present: regular rate, normal rhythm, normal heart sounds. Absent: systolic murmur, diastolic murmur, rubs, gallop GI/Abdominal exam: Present: soft, tenderness (Left lower quadrant), normal bowel sounds. Absent: distended, guarding, rebound, rigid, mass Extremities exam: Present: normal inspection, normal capillary refill. Absent: pedal edema, calf tenderness Back exam: Present: normal inspection. Absent: CVA tenderness (R), CVA tenderness (L) Neurological exam: Present: alert Skin exam: Present: warm, dry, intact, normal color. Absent: rash Course Vital Signs 08/10/20 04:52 Temperature 98.2 F Pulse Rate 113 H Respiratory 16 Rate Blood Pressure 159/95 O2 Sat by Pulse 95 Oximetry Medical Decision Making - Lab Data Result diagrams: 08/10/20 05:17 08/10/20 05:17 Lab Results 08/10/20 08/10/20 Range/Units 05:17 05:17 WBC 8.6 (3.8-10.6) k/uL RBC 4.93 (3.80-5.40) m/uL Hgb 13.5 (11.4-16.0) gm/dL Hct 41.7 (34.0-46.0) % MCV 84.6 (80.0-100.0) fL MCH 27.4 (25.0-35.0) pg MCHC 32.3 (31.0-37.0) g/dL RDW 13.7 (11.5-15.5) % Plt Count 319 (150-450) k/uL MPV 7.1 Neutrophils % 66 % Lymphocytes % 22 % Monocytes % 6 % Eosinophils % 4 % Basophils % 1 % Neutrophils # 5.7 (1.3-7.7) k/uL Lymphocytes # 1.9 (1.0-4.8) k/uL Monocytes # 0.5 (0-1.0) k/uL Eosinophils # 0.4 (0-0.7) k/uL Basophils # 0.1 (0-0.2) k/uL Sodium 139 (137-145) mmol/L Potassium 4.7 (3.5-5.1) mmol/L Chloride 105 (98-107) mmol/L Carbon Dioxide 25 (22-30) mmol/L Anion Gap 9 mmol/L BUN 11 (7-17) mg/dL Creatinine 0.68 (0.52-1.04) mg/dL Est GFR (CKD-EPI)AfAm >90 (>60 ml/min/1.73 sqM) Est GFR (CKD-EPI)NonAf >90 (>60 ml/min/1.73 sqM) Glucose 160 H (74-99) mg/dL Calcium 9.6 (8.4-10.2) mg/dL Total Bilirubin 0.5 (0.2-1.3) mg/dL AST 31 (14-36) U/L ALT 26 (4-34) U/L Alkaline Phosphatase 81 (38-126) U/L C-Reactive Protein 18.6 H (<10.0) mg/L Total Protein 7.4 (6.3-8.2) g/dL Albumin 4.6 (3.5-5.0) g/dL Amylase 42 (30-110) U/L Lipase 210 (23-300) U/L Disposition Clinical Impression: Constipation Disposition: HOME SELF-CARE Condition: Good Instructions (If sedation given, give patient instructions): Constipation (DC) Is patient prescribed a controlled substance at d/c from ED?: No Referrals: Bina Mancilla DO [Primary Care Provider] - 1-2 days
[2020-08-10 05:22] LABS: Basophils # (A) 0.1 k/uL (0-0.2); Basophils % (A) 1 %; Eosinophils # (A) 0.4 k/uL (0-0.7); Eosinophils % (A) 4 %; HCT 41.7 % (34.0-46.0); HGB 13.5 gm/dL (11.4-16.0); Lymphocytes # (A) 1.9 k/uL (1.0-4.8); Lymphocytes % (A) 22 %; MCH 27.4 pg (25.0-35.0); MCHC 32.3 g/dL (31.0-37.0); MCV 84.6 fL (80.0-100.0); Mean Platelet Volume 7.1; Monocytes # (A) 0.5 k/uL (0-1.0); Monocytes % (A) 6 %; Neutrophils # (A) 5.7 k/uL (1.3-7.7); Neutrophils % (A) 66 %; Platelet Count 319 k/uL (150-450); RBC 4.93 m/uL (3.80-5.40); RDW 13.7 % (11.5-15.5); WBC 8.6 k/uL (3.8-10.6)
[2020-08-10 05:37] LABS: ALT 26 U/L (4-34); AST 31 U/L (14-36); African American GFR (CKD) >90 (>60 ml/min/1.73 sqM); Albumin 4.6 g/dL (3.5-5.0); Alkaline Phosphatase 81 U/L (38-126); Amylase 42 U/L (30-110); Anion Gap 9 mmol/L; Blood Urea Nitrogen 11 mg/dL (7-17); Calcium 9.6 mg/dL (8.4-10.2); Carbon Dioxide 25 mmol/L (22-30); Chloride 105 mmol/L (98-107); Glucose 160 mg/dL (74-99); Lipase 210 U/L (23-300); Non-African American GFR(CKD) >90 (>60 ml/min/1.73 sqM); Potassium 4.7 mmol/L (3.5-5.1); Sodium 139 mmol/L (137-145); Total Bilirubin 0.5 mg/dL (0.2-1.3); Total Protein 7.4 g/dL (6.3-8.2)
[2020-08-10 05:51] LABS: C Reactive Protein 18.6 mg/L (<10.0)
--- NOTE | 2020-08-10 05:55 | XR ---
EXAM: XR Abdomen, 1 View CLINICAL HISTORY: ITS.REASON XR Reason: abdominal pain TECHNIQUE: Frontal supine view of the abdomen/pelvis. COMPARISON: November 23, 2010 FINDINGS: Gastrointestinal tract: There is a moderate amount of stool throughout a distended but nondilated colon suggesting mild constipation. The right colon measures up to 6 cm. No dilated small bowel loops are seen. Bones/joints: Unremarkable. IMPRESSION: There is a moderate amount of stool throughout a distended but nondilated colon suggesting mild constipation. The right colon measures up to 6 cm.
[2020-08-10 06:58] VITALS: BP 128/62; PULSE 98; TEMP 97.9
[2020-08-10] MEDS ORDERED: PEG 3350-NA SULF,BICARB,CL/KCL 4,000 ML BOTTLE PO ONE (07:00)
== END 2020-08-10 06:53 | disposition home or self-care (01) ==
LOC: EC 04:45
DX: K59.00 Constipation, unspecified (principal); G40.909 Epilepsy, unspecified, not intractable, without status epilepticus; E07.9 Disorder of thyroid, unspecified; Z79.899 Other long term (current) drug therapy; Z88.5 Allergy status to narcotic agent
CPT/HCPCS: 36415; 74018; 80053; 82150; 83690; 85025; 86140; 99284

== ENCOUNTER → 2022-07-04 | Outpatient (CLI) | payer BC ==
--- NOTE | 2022-07-05 20:51 | MM ---
Reason for Exam: Screening (asymptomatic). Last mammogram was performed 5 year(s) and 9 month(s) ago. Patient History: Menarche at age 12. First Full-Term at age 25. Left ovary removed at age 49. Right ovary removed at age 49. Hysterectomy at age 49. Postmenopausal. Patient has history of breast feeding. Paternal cousin had breast cancer. Paternal cousin had breast cancer. Maternal aunt had breast cancer. Maternal aunt had breast cancer. Maternal grandmother had breast cancer at or over age 50. Mother had breast cancer at or over age 50. Risk Values: [place] 5 year model risk: 2.1%. NCI Lifetime model risk: 16.3%. Prior Study Comparison: 10/11/2016 Bilateral Diagnostic Mammogram, [facility]. Tissue Density: The breast tissue is heterogeneously dense. This may lower the sensitivity of mammography. Findings: Analyzed By CAD. Some areas of asymmetric density remain unchanged. There is no suspicious group of microcalcifications or new suspicious mass in either breast. Overall Assessment: Benign, BI-RAD 2 Management: Screening Mammogram of both breasts in 1 year. 1. Note that the patient's breast tissue type would benefit from 3-D mammographic assessment in the future. 2. Patient should continue monthly self breast exams. 3. This exam should not preclude additional follow-up of suspicious palpable abnormalities. Electronically signed and approved by: Germán Booth M.D. Radiologist
== END | disposition home or self-care (01) ==
LOC: RADMAMWWP 16:24
PROVIDERS: ATTEND Obstetrics & Gynecology
DX: Z12.31 Encounter for screening mammogram for malignant neoplasm of breast (principal); Z78.0 Asymptomatic menopausal state; Z80.3 Family history of malignant neoplasm of breast
CPT/HCPCS: 77067

== ENCOUNTER 2023-07-25 10:51 | Day surgery (SDC) | payer BC ==
[2023-07-21 10:42] VITALS: BMI 28.0
[2023-07-25] MEDS: LIDOCAINE 1% (10MG/ML) FOR IV START INTRADERMA PRN (11:13)
[2023-07-25] MEDS: LACTATED RINGERS 1,000 ML IV SCH (11:13)
[2023-07-25 11:21] LABS: Glucose,Whole Blood 88 mg/dL (70-110)
[2023-07-25] MEDS ORDERED: MIDAZOLAM 2 MG/2 ML VIAL ONE (11:30)
[2023-07-25] MEDS ORDERED: PROPOFOL 10 MG/ML 20 ML VIAL IV ONE (11:30)
[2023-07-25] MEDS ORDERED: LIDOCAINE 1% INJ 10MG/ML (20 ML MDV) ONE (11:30)
[2023-07-25 11:34] VITALS: TEMP 97.6
--- NOTE | 2023-07-25 11:34 | P.GSHP ---
History of Present Illness H&P Date: 07/25/23 Chief Complaint: Screening 53-year-old female here for colonoscopy. Last colonoscopy over 5 years ago. Family history of colon cancer in father and uncles. No bowel complaints. Last colonoscopy showed diverticulosis. Past Medical History Past Medical History: Diabetes Mellitus, Hyperlipidemia, Hypertension, Seizure Disorder, Thyroid Disorder Additional Past Medical History / Comment(s): LAST SEIZURE APRIL 2015, NO CURRENT SEIZURE MEDS.-follows w/neurologist, HYPOGLYCEMIA, IBS, covid 19 History of Any Multi-Drug Resistant Organisms: None Reported Past Surgical History: Appendectomy, Section, Hysterectomy, Tonsillectomy, Tubal Ligation Additional Past Surgical History / Comment(s): LASIK eye surgery, D & C, col onoscopy Past Anesthesia/Blood Transfusion Reactions: No Reported Reaction Additional Past Anesthesia/Blood Transfusion Reaction / Comment(s): no blood transfusion Smoking Status: Never smoker - Past Family History Mother Family Medical History: Dementia, Myocardial Infarction ([place]) Father Family Medical History: CVA/TIA, Myocardial Infarction (MA) Medications and Allergies Home Medications Medication Instructions Recorded Confirmed Type Acetaminophen Tab [Tylenol] 1,000 mg PO Q6HR PRN 05/18/20 07/25/23 History ondansetron HCL [Zofran] 8 mg PO TID PRN 05/23/20 07/25/23 History Albuterol Inhaler [Ventolin Hfa 2 puff INHALATION RT-QID PRN 30 05/29/20 07/25/23 Rx Inhaler] Days #1 puff Ascorbic Acid [Vitamin C] 1,000 mg PO DAILY 30 Days #30 tab 05/29/20 07/25/23 Rx Zinc Sulfate [Orazinc] 220 mg PO DAILY 30 Days #30 cap 05/29/20 07/25/23 Rx Acetylcysteine [Nac] 500 mg PO BID 07/21/23 07/25/23 History Atorvastatin [Lipitor] 40 mg PO DAILY 07/21/23 07/25/23 History Cholecalciferol [Vitamin D3 (25 1,000 unit PO WEEKLY 07/21/23 07/25/23 History Mcg = 1000 Iu)] Lactobacil 2/Bifido 1/S.thermo 1 each PO DAILY 07/21/23 07/25/23 History [Visbiome 112.5 Billion Capsule] PARoxetine [Paxil] 20 mg PO DAILY 07/21/23 07/25/23 History Progesterone, Micronized 200 mg PO HS 07/21/23 07/25/23 History [Progesterone] Semaglutide [Rybelsus] 14 mg PO DAILY 07/21/23 07/25/23 History Thyroid,Pork [[place] Thyroid] 120 mg PO DAILY 07/21/23 07/25/23 History lisinopriL [Prinivil] 20 mg PO DAILY 07/21/23 07/25/23 History Allergies Allergy/AdvReac Type Severity Reaction Status Date / Time morphine AdvReac Dyspnea/Let Verified 07/25/23 11:09 [facility] - Exam Vital Signs Temp Pulse Resp BP Pulse Ox 97.6 F 91 16 138/82 98 07/25/23 11:06 07/25/23 11:06 07/25/23 11:06 07/25/23 11:06 07/25/23 11:06 Physical exam: General: Well-developed, well-nourished HEENT: Normocephalic, sclerae nonicteric Abdomen: Nontender, nondistended Extremities: No edema Neuro: Alert and oriented Assessment and Plan (1) Colon cancer screening Narrative/Plan: Will proceed with colonoscopy at this time Current Visit: Yes Status: Acute Code(s): Z12.11 - ENCOUNTER FOR SCREENING FOR MALIGNANT NEOPLASM OF COLON SNOMED Code(s): 775658274
--- NOTE | 2023-07-25 11:49 | P.PCN ---
Date of Procedure: 07/25/23 Procedure(s) Performed: PREOPERATIVE DIAGNOSIS: Family history of colon cancer POSTOPERATIVE DIAGNOSIS: Mild diverticulosis PROCEDURE: Colonoscopy ANESTHESIA: MAC SURGEON: Diaz Santiago M.D. SPECIMENS: None ENDOSCOPIC PROCEDURE: The patient was placed on the endoscopy table in the left decubitus position. The Olympus colonoscope was inserted into the anus and passed under direct visualization to the base of the cecum. The appendiceal orifice was visualized. From that point the scope was slowly withdrawn inspecting all surfaces carefully. There were no neoplastic inflammatory or polypoid lesions throughout the cecum, ascending, transverse, descending, sigmoid and rectum. There was mild scattered diverticulosis noted. Digital rectal examination was normal. The patient was taken to the recovery room in stable condition per anesthesia guidelines. RECOMMENDATIONS: Resume diet. Repeat colonoscopy 5 years.
[2023-07-25 12:23] LABS: Glucose,Whole Blood 81 mg/dL (70-110)
[2023-07-25 12:35] VITALS: BP 132/82; PULSE 78; RESP 18
== END 2023-07-25 12:40 | disposition home or self-care (01) ==
LOC: ORWHC2ENDO 10:51
PROVIDERS: ATTEND Surgery
DX: Z12.11 Encounter for screening for malignant neoplasm of colon (principal); K57.30 Diverticulosis of large intestine without perforation or abscess without bleeding; E11.9 Type 2 diabetes mellitus without complications; E78.5 Hyperlipidemia, unspecified; I10 Essential (primary) hypertension; G40.909 Epilepsy, unspecified, not intractable, without status epilepticus; E07.9 Disorder of thyroid, unspecified; E16.2 Hypoglycemia, unspecified; F41.9 Anxiety disorder, unspecified; F32.A Depression, unspecified; K58.9 Irritable bowel syndrome, unspecified; Z86.16 Personal history of COVID-19; Z90.49 Acquired absence of other specified parts of digestive tract; Z98.890 Other specified postprocedural states; Z82.49 Family history of ischemic heart disease and other diseases of the circulatory system; Z79.51 Long term (current) use of inhaled steroids; Z79.890 Hormone replacement therapy; Z88.5 Allergy status to narcotic agent; Z79.85 Long-term (current) use of injectable non-insulin antidiabetic drugs; Z80.0 Family history of malignant neoplasm of digestive organs
CPT/HCPCS: 45378; J2250; J2001; J2704

== ENCOUNTER → 2023-09-01 | Outpatient (CLI) | payer BC ==
--- NOTE | 2023-09-05 09:42 | MM ---
Reason for Exam: Screening (asymptomatic). Last mammogram was performed 1 year(s) and 2 month(s) ago. Patient History: Menarche at age 12. First Full-Term at age 25. Left ovary removed at age 49. Right ovary removed at age 49. Hysterectomy at age 49. Postmenopausal. Patient has history of breast feeding. Paternal cousin had breast cancer. Paternal cousin had breast cancer. Maternal aunt had breast cancer. Maternal aunt had breast cancer. Maternal grandmother had breast cancer at or over age 50. Mother had breast cancer at or over age 50. Risk Values: Shelby 5 year model risk: 2.2%. NCI Lifetime model risk: 16.1%. Prior Study Comparison: 10/11/2016 Bilateral Diagnostic Mammogram, [facility]. 07/04/2022 Bilateral MG screening mammo w CAD, [facility]. Tissue Density: There are scattered areas of fibroglandular density. Findings: Analyzed By CAD. There is no suspicious group of microcalcifications or new suspicious mass. Overall Assessment: Negative, BI-RAD 1 Management: Screening Mammogram of both breasts in [address] [facility] will attempt to contact patient to return for supplemental views and ultrasound if indicated. Patient should continue monthly self-breast exams. A clinical breast exam by your physician is recommended on an annual basis. This exam should not preclude additional follow-up of suspicious palpable abnormalities. Note on Shelby scores and lifetime risk: 1. A Shelby score greater than 3% is considered moderate risk. If this is the case, consider specialist referral to assess eligibility for a risk reducing agent. 2. If overall lifetime risk for the development of breast cancer is 20% or higher, the patient may qualify for future screening with alternating mammogram and breast MRI. Electronically signed and approved by: Ken Elder DO
== END | disposition home or self-care (01) ==
LOC: RADMAMWWP 13:06
PROVIDERS: ATTEND Obstetrics & Gynecology
DX: Z12.31 Encounter for screening mammogram for malignant neoplasm of breast (principal); Z78.0 Asymptomatic menopausal state; Z80.3 Family history of malignant neoplasm of breast
CPT/HCPCS: 77063; 77067

== ENCOUNTER 2024-01-15 09:19 | Day surgery (SDC) | payer BC ==
[2024-01-11 14:42] VITALS: BMI 24.7
[~2024-01-15 09:19] MED LIST changes: -DEXAMETHASONE SOD PHOSPHATE 10 MG/ML 1 ML VIAL IV ONE; -LIDOCAINE 1% 20 ML VIAL (10MG/ML) FOR IV START INTRADERMA PRN; -MIDAZOLAM 2 MG/2 ML VIAL IV PRN; -ONDANSETRON 4 MG/2 ML VIAL IVP ONE; -SCOPOLAMINE 1.5MG/72HR PATCH TRANSDERM ONE; +SODIUM CHLORIDE 0.9% 1,000 ML IV SCH
[2024-01-15] MEDS: SODIUM CHLORIDE 0.9% 500 ML DEHP FREE BAG IV STA (09:31)
[2024-01-15] MEDS: IV FLUID CONTINUATION 1,000 ML IV ONE (09:32)
[2024-01-15 09:44] VITALS: BP 149/91; RESP 16; TEMP 97.5
[2024-01-15 11:45] VITALS: PULSE 98
--- NOTE | 2024-01-15 18:54 | P.EPPROC ---
- EP Procedure Note Electrophysiology Procedure Note: Diagnosis Recurrent presyncope Twelve-lead EKG shows sinus rhythm normal MT narrow QRS normal ST segments normal QT interval Tilt table test per protocol Baseline blood pressure 122/71 mmHg, baseline heart rate 81 beats a minute Patient was tilted upright in angle of 70 degrees per protocol. There was an immediate increase in her heart rate to about 105-110 beats a minute Her heart rate remained elevated while her blood pressure remained completely normal When she was laid supine the end of the procedure heart rate came down into the 80s The patient felt a little nauseous occasionally and a little dizzy when she first stood up Impression Normal 20 EKG Orthostatic intolerance without any secondary neurocardiogenic phenomena
== END 2024-01-15 11:53 | disposition home or self-care (01) ==
LOC: CATHEP 09:19
PROVIDERS: ATTEND Internal Medicine Clinical Cardiac Electrophysiology
DX: R55 Syncope and collapse (principal)
CPT/HCPCS: 93660